=== PATIENT | female | born 1945 | race Caucasian/White ===

== ENCOUNTER → 2019-11-29 07:53 | Outpatient (BNVA) | payer MEDICARE, SELFPAY | PROVIDERS: Family Provider Nurse Practitioner; PCP Nurse Practitioner; Visit Provider Specialist | DX: F03.90 Unspecified dementia, unspecified severity, without behavioral disturbance, psychotic disturbance, mood disturbance, and anxiety (principal); Z87.891 Personal history of nicotine dependence | CPT/HCPCS: 96116; 99213 ==

== ENCOUNTER 2020-01-06 19:01 | Inpatient (IN) | payer MEDICARE, SELFPAY ==
[2020-01-06 19:02] VITALS: BP 115/55; PULSE 70; RESP 18; TEMP 36.9; O2SAT 96; BMI 20.1
--- NOTE | 2020-01-06 19:05 | XR_ITS ---
WS: [id number] CHEST XRAY TECHNIQUE: Portable chest. CLINICAL INFORMATION: cough COMPARISON: October 04, 2018 FINDINGS: Heart: Cardiomegaly. Cardiac pacer. Lungs: Moderate chronic emphysematous changes. Elevation right hemidiaphragm. Bones: Normal visualized bony structures. XR/XR chest 1V portable [id number] IMPRESSION: No acute chest findings
--- NOTE | 2020-01-06 19:05 | CTR_ITS ---
PROCEDURE INFORMATION: Exam: CT Head Without Contrast Exam date and time: 01/06/2020 8:46 PM Age: 74 years old Clinical indication: Altered mental status/memory loss; Confusion or disorientation; Additional info: Dalton/ams TECHNIQUE: Imaging protocol: Computed tomography of the head without contrast. Radiation optimization: All CT scans at this facility use at least one of these dose optimization techniques: automated exposure control; mA and/or kV adjustment per patient size (includes targeted exams where dose is matched to clinical indication); or iterative reconstruction.Total DLP: 766.21 mGy-cm COMPARISON: CT head wo con* [id number] 10/16/2018 1:46 PM FINDINGS: Brain: Medial left occipital lobe chronic infarction is present. Mild atrophy and mild white matter chronic microvascular changes are noted. No hemorrhage or CT evidence of acute infarction is seen. Ventricles: Normal. No ventriculomegaly. Bones/joints: Unremarkable. No acute fracture. Sinuses: Visualized sinuses are unremarkable. No fluid levels. Mastoid air cells: Visualized mastoid air cells are well aerated. Soft tissues: Unremarkable. CT/CT head wo con* [id number] IMPRESSION: No acute intracranial abnormality. Radiation Dose CTDIVOL = (mGy): DLP = 766.21 (mGy-cm)
--- NOTE | 2020-01-06 19:06 | CTR_ITS ---
PROCEDURE INFORMATION: Exam: CT Abdomen And Pelvis With Contrast Exam date and time: 01/06/2020 8:46 PM Age: 74 years old Clinical indication: Nausea and vomiting; Prior surgery; Surgery type: Gb, appy, gastric, pacemaker; Additional info: Abdominal pain TECHNIQUE: Imaging protocol: Computed tomography of the abdomen and pelvis with intravenous contrast. Radiation optimization: All CT scans at this facility use at least one of these dose optimization techniques: automated exposure control; mA and/or kV adjustment per patient size (includes targeted exams where dose is matched to clinical indication); or iterative reconstruction.Total DLP: 501.29 mGy-cm Contrast material: VISI 320; Contrast volume: 75 ml; Contrast route: IV; COMPARISON: CT abdomen pelvis w con* [id number] 10/04/2018 10:12 AM FINDINGS: Heart: The heart is mildly enlarged. Mediastinum: A small hiatal hernia is present. Liver: Normal. No mass. Gallbladder and bile ducts: The gallbladder has been removed. No biliary ductal dilatation. Pancreas: Normal. No ductal dilation. Spleen: Normal. No splenomegaly. Adrenals: Normal. No mass. Kidneys and ureters: Normal. No hydronephrosis. Stomach and bowel: Gastrojejunostomy changes are appreciated. Postoperative changes are also seen in the small bowel in the right lower quadrant. No intestinal obstruction. Mild sigmoid diverticulitis is appreciated. Appendix: The appendix is absent. Intraperitoneal space: Unremarkable. No free air. No significant fluid collection. Vasculature: Atherosclerotic calcific changes are seen in the abdominal aorta and iliac arteries. No aneurysm. Lymph nodes: Unremarkable. No enlarged lymph nodes. Bladder: Unremarkable as visualized. Reproductive: Unremarkable as visualized. Bones/joints: Unremarkable. No acute fracture. Soft tissues: Unremarkable. CT/CT abdomen pelvis w con* [id number] IMPRESSION: 1. Mild sigmoid diverticulitis. 2. Small hiatal hernia. 3. Mild cardiomegaly. 4. Atherosclerosis. Radiation Dose CTDIVOL = (mGy): DLP = 501.29 (mGy-cm)
[2020-01-06] MEDS: sodium chloride 0.9% 1,000 ML 100 ML IV (19:15)
--- NOTE | 2020-01-06 19:21 | W.ED.GENADLT ---
HPI - General Adult General: Chief complaint: General Medical Stated complaint: bilat leg numbness / tremors / n/v Time Seen by Provider: 01/06/20 19:02 History of Present Illness: HPI narrative: Jessica is a pleasant 74-year-old female who comes in with report of tremors, vomiting, abdominal pain, and arm and leg numbness. The patient has Alzheimer's dementia and is a poor historian. Most of her history is taken from EMS, her daughter and old charts. The patient was checked on by her daughter today at 5 PM she was found laying in bed. She had generalized tremors which her daughter states will happen when she gets scared or upset. She had been vomiting. She also complained of bilateral leg numbness. Here the patient complains of both leg and arm numbness bilaterally. There is been no reported fevers, urinary symptoms, chest pain, headache or other complaints. Review of Systems General: Reports: ROS unobtainable due to mental status (Pertinent positive review of systems is noted in HPI.) PFS ED PFSH: Medical History (Updated 01/07/20 @ 01:18 by Lor Rose MD) Atrial fibrillation Depression Diabetes mellitus Diastolic heart failure Fibromyalgia History of CVA (cerebrovascular accident) Hyperlipidemia Hypertension Hypothyroidism Neuropathy Sleep apnea unclear if cpap machine working Surgical History S/P appendectomy S/P cardiac pacemaker procedure S/P carpal tunnel release S/P cholecystectomy S/P gastric surgery S/P hernia repair S/P hysterectomy S/P knee replacement Family History Father Stroke Mother Diabetes Hypertension CAD (coronary artery disease) Social History Smoking and tobacco status: former smoker Quit status (tobacco): has quit using tobacco Year quit tobacco: 1986 Alcohol intake: never History of recent travel: No Physical Exam Const: COMMON NORMALS: no apparent distress, no limitations, healthy appearing and well nourished EXAM LIMITATIONS: no altered mental status GENERAL APPEARANCE: cooperative, comfortable, well kempt, well developed and anxious ORIENTATION/CONSCIOUSNESS: Yes awake, Yes oriented to person and Yes confused HENMT: COMMON NORMALS: normocephalic, head/scalp atraumatic, hearing grossly normal bilaterally, external ears normal, EAC's normal, external nose normal and moist oral mucous membranes HEAD & SCALP: normal to inspection, normocephalic and atraumatic FACE & SINUS: normal facial exam and face symmetric NOSE: external nose normal and nares normal EXTERNAL EAR: Yes external ears normal EXTERNAL AUDITORY CANAL: EAC's normal MOUTH: oral and palatal mucosa normal and tongue normal Eye: COMMON NORMALS: PERRL, EOMs intact bilaterally, conjunctivae normal and no scleral icterus GENERAL EYE: normal appearance of both eyes and normal light reflex CONJUNCTIVA: Yes conjunctivae normal SCLERA: sclerae normal CORNEA: Yes corneas normal PUPIL: Yes PERRL DIRECT OPHTHALMOSCOPY: Yes normal light reflex Neck/C-Spine: COMMON NORMALS: full ROM, no lymphadenopathy, supple, no meningeal signs and no JVD GENERAL: Yes normal visual inspection and Yes trachea midline CERVICAL SPINE: Yes cervical ROM normal Chest: COMMONS NORMALS: inspection of chest normal and palpation of chest normal Resp: COMMON NORMALS: normal respiratory effort, no retractions, no use of accessory muscles and clear to auscultation bilaterally EFFORT & INSPECTION: Yes able to speak in complete sentences AUSCULTATION: clear to auscultation bilaterally Cardio: COMMON NORMALS: no JVD, regular rate, regular rhythm, S1 normal heart sound, S2 normal heart sound, no gallops, no clicks, no murmurs and no rub JUGULAR VENOUS DISTENTION: no JVD RATE: regular rate RHYTHM: regular rhythm HEART SOUNDS: S1 normal and S2 normal GI: COMMON NORMALS: soft to palpation, no hepatosplenomegaly and no masses PALPATION: Yes soft and Yes no hepatosplenomegaly : COMMON NORMALS: Yes no CVA tenderness BLADDER/KIDNEY EXAM: Yes no CVA tenderness Back/Pelvis: COMMON NORMALS: no CVA tenderness, thoracic and lumbar spine normal to inspection, no thoracic nor lumbar tenderness and thoraco-lumbar ROM normal Extremity: COMMON NORMALS: normal to inspection, full ROM, normal capillary refill, no joint enlargement, no clubbing, cyanosis or edema and no calf tenderness Neuro: MOE COMA SCALE: document GCS findings [place] coma scale eye opening: Spontaneous [place] coma scale verbal response: Confused Moe coma scale motor response: Obey commands [place] coma scale total score: 14 COMMON NORMALS: CN's II-XII intact bilaterally, moves all extremities, no focal motor deficits and no sensory deficits noted SENSORIUM/ORIENTATION: Yes oriented to person MENINGEAL SIGNS: Yes no meningeal signs Psych: COMMON NORMALS: mental status grossly normal, thought process normal, cooperative, affect normal, speech normal and activity/motor behavior normal APPEARANCE: Yes well kempt SPEECH: Yes normal speech THOUGHT PROCESS: normal thought process Skin: COMMON NORMALS: no rashes or lesions noted, skin turgor normal, no jaundice, no petechiae and no mottling GENERAL SKIN EXAM: no rashes or lesions noted and turgor normal Course Vital Signs: Vital signs: Vital Signs Temperature 98.4 F 01/06/20 19:02 Pulse Rate 72 01/07/20 00:36 Respiratory Rate 19 H 01/07/20 00:36 Blood Pressure 104/52 01/07/20 00:36 Pulse Oximetry 100 01/07/20 00:36 MDM - General Adult MDM Narrative: Medical decision making narrative: The patient is feeling better at this time. I have reviewed the case in full with Dr. Tran and she is agreeable to admission for diverticulitis and early signs of sepsis although the patient is clinically improved at this time. Lab Data: Labs: Lab Results 01/06/20 01/06/20 01/06/20 Range/Units 19:22 19:22 19:22 WBC 12.2 H (4.0-10.0) 10^3/ uL RBC 4.03 L (4.1-5.3) 10^6/u L Hgb 11.8 (11.5-15.3) g/dL Hct 36.5 L (37.0-47.0) % MCV 90.6 (81-99) fL MCH 29.3 (28.0-34.0) pg MCHC 32.3 (30.0-36.0) g/dL RDW 11.9 L (12.1-15.1) % Plt Count 321 (130-400) 10^3/c mm MPV 11.0 H (7.4-10.4) fL Neut % (Auto) 83.3 % Lymph % (Auto) 10.8 % [place] % (Auto) 4.9 % Eos % (Auto) 0.2 % Baso % (Auto) 0.5 % Neut # (Auto) 10.1 H (1.8-7.7) 10^3/u L Lymph # (Auto) 1.3 (0.8-4.8) 10^3/u L [place] # (Auto) 0.6 (0.2-0.9) 10^3/u L Eos # (Auto) 0.0 (0.0-0.8) 10^3/u L Baso # (Auto) 0.1 (0.0-0.1) 10^3/u L Nucleated RBC % (a uto) 0 % Nucleated RBCs # 0.0 /100WBC PT 28.90 H (10.5-13.3) SECO NDS INR 2.61 H (0.8-1.2) Specimen Type Sample Site ABG pH (7.35-7.45) ABG pCO2 (35-45) mmHg ABG pO2 (80.0-100.0) mmH g ABG HCO3 (22-26) mmol/L ABG Base Excess (-2.0-2.0) mmol/ L Kye Test Hematocrit (37-47) % O2 Delivery Device FiO2 % Supervisor [employer] ID Sodium 133 L (136-145) mmol/L Potassium 4.5 (3.5-5.1) mmol/L Chloride 93 L (98-107) mmol/L Carbon Dioxide 24 (22-29) mmol/L Anion Gap 20.5 H (5-19) BUN 13 (8-23) mg/dL Creatinine 1.2 H (0.5-0.9) mg/dL Glucose 169 H (65-115) mg/dL Calculated Osmolal ity 276 L (285-295) mOsm/k g Lactic Acid (0.5-2.2) mmol/L Lactic Acid (Sepsi s) (0.5-2.2) mmol/L Calcium 10.0 (8.5-10.5) mg/dL Magnesium 1.9 (1.7-2.3) mg/dL Total Bilirubin 0.6 (0.15-1.2) mg/dL AST 25 (0-32) U/L ALT 13 (0-33) U/L Alkaline Phosphata se 119 H (35-105) IU/L Ammonia (11-51) umol/L Total Protein 6.6 (6.6-8.7) g/dL Albumin 3.7 (3.5-5.2) g/dL Globulin 2.9 (1.3-4.6) g/dL Lipase 30 (13-60) U/L TSH 0.72 (0.27-4.20) uIU/ mL Urine Color (Yellow) Urine Appearance (CLEAR) Urine pH (5-7) Ur Specific Gravit y (1.005-1.030) Urine Protein (Negative) Urine Glucose (UA) (Normal) Urine Ketones (Negative) Urine Blood (Negative) Urine Nitrate (Negative) Urine Bilirubin (NEGATIVE) Prot Sulfosalicyli c Acd (Negative) Urine Urobilinogen (Negative) mg/dL Ur Leukocyte Ak[place] ase (Negative) Urine RBC (0-2) /hpf Urine WBC (0-5) /hpf Ur Squamous Epith Cells (0-5) Urine Bacteria (NONE) Hyaline Casts Digoxin 1.7 H (0.6-1.2) ng/mL Urine Opiates Scre en (Negative) ng/mL Ur Barbiturates Sc reen (Negative) ng/mL Ur Phencyclidine S crn (Negative) ng/mL Ur Amphetamines Sc reen (Negative) ng/mL U Benzodiazepines Scrn (Negative) ng/mL Urine Cocaine Scre en (Negative) ng/mL U Marijuana (THC) Screen (Negative) ng/mL Ethyl Alcohol < 10 (0-10) mg/dL Influenza Type A A g (Negative) Influenza Type B A g (Negative) 01/06/20 01/06/20 01/06/20 Range/Units 19:32 19:32 19:35 WBC (4.0-10.0) 10^3/ uL RBC (4.1-5.3) 10^6/u L Hgb (11.5-15.3) g/dL Hct (37.0-47.0) % MCV (81-99) fL MCH (28.0-34.0) pg MCHC (30.0-36.0) g/dL RDW (12.1-15.1) % Plt Count (130-400) 10^3/c mm MPV (7.4-10.4) fL Neut % (Auto) % Lymph % (Auto) % [place] % (Auto) % Eos % (Auto) % Baso % (Auto) % Neut # (Auto) (1.8-7.7) 10^3/u L Lymph # (Auto) (0.8-4.8) 10^3/u L [place] # (Auto) (0.2-0.9) 10^3/u L Eos # (Auto) (0.0-0.8) 10^3/u L Baso # (Auto) (0.0-0.1) 10^3/u L Nucleated RBC % (a uto) % Nucleated RBCs # /100WBC PT (10.5-13.3) SECO NDS INR (0.8-1.2) Specimen Type Arterial Sample Site Radial, left ABG pH 7.46 H (7.35-7.45) ABG pCO2 40.8 (35-45) mmHg ABG pO2 84.1 (80.0-100.0) mmH g ABG HCO3 28.6 H (22-26) mmol/L ABG Base Excess 4.3 H (-2.0-2.0) mmol/ L Kye Test Pos Hematocrit 37.0 (37-47) % O2 Delivery Device None FiO2 21.0 % Supervisor [employer] ID [email or web address] Sodium (136-145) mmol/L Potassium (3.5-5.1) mmol/L Chloride (98-107) mmol/L Carbon Dioxide (22-29) mmol/L Anion Gap (5-19) BUN (8-23) mg/dL Creatinine (0.5-0.9) mg/dL Glucose (65-115) mg/dL Calculated Osmolal ity (285-295) mOsm/k g Lactic Acid 3.2 H (0.5-2.2) mmol/L Lactic Acid (Sepsi s) (0.5-2.2) mmol/L Calcium (8.5-10.5) mg/dL Magnesium (1.7-2.3) mg/dL Total Bilirubin (0.15-1.2) mg/dL AST (0-32) U/L ALT (0-33) U/L Alkaline Phosphata se (35-105) IU/L Ammonia 19 (11-51) umol/L Total Protein (6.6-8.7) g/dL Albumin (3.5-5.2) g/dL Globulin (1.3-4.6) g/dL Lipase (13-60) U/L TSH (0.27-4.20) uIU/ mL Urine Color (Yellow) Urine Appearance (CLEAR) Urine pH (5-7) Ur Specific Gravit y (1.005-1.030) Urine Protein (Negative) Urine Glucose (UA) (Normal) Urine Ketones (Negative) Urine Blood (Negative) Urine Nitrate (Negative) Urine Bilirubin (NEGATIVE) Prot Sulfosalicyli c Acd (Negative) Urine Urobilinogen (Negative) mg/dL Ur Leukocyte Akua ase (Negative) Urine RBC (0-2) /hpf Urine WBC (0-5) /hpf Ur Squamous Epith Cells (0-5) Urine Bacteria (NONE) Hyaline Casts Digoxin (0.6-1.2) ng/mL Urine Opiates Scre en (Negative) ng/mL Ur Barbiturates Sc reen (Negative) ng/mL Ur Phencyclidine S crn (Negative) ng/mL Ur Amphetamines Sc reen (Negative) ng/mL U Benzodiazepines Scrn (Negative) ng/mL Urine Cocaine Scre en (Negative) ng/mL U Marijuana (THC) Screen (Negative) ng/mL Ethyl Alcohol (0-10) mg/dL Influenza Type A A g (Negative) Influenza Type B A g (Negative) 01/06/20 01/06/20 01/06/20 Range/Units 20:20 20:20 20:20 WBC (4.0-10.0) 10^3/ uL RBC (4.1-5.3) 10^6/u L Hgb (11.5-15.3) g/dL Hct (37.0-47.0) % MCV (81-99) fL MCH (28.0-34.0) pg MCHC (30.0-36.0) g/dL RDW (12.1-15.1) % Plt Count (130-400) 10^3/c mm MPV (7.4-10.4) fL Neut % (Auto) % Lymph % (Auto) % [place] % (Auto) % Eos % (Auto) % Baso % (Auto) % Neut # (Auto) (1.8-7.7) 10^3/u L Lymph # (Auto) (0.8-4.8) 10^3/u L [place] # (Auto) (0.2-0.9) 10^3/u L Eos # (Auto) (0.0-0.8) 10^3/u L Baso # (Auto) (0.0-0.1) 10^3/u L Nucleated RBC % (a uto) % Nucleated RBCs # /100WBC PT (10.5-13.3) SECO NDS INR (0.8-1.2) Specimen Type Sample Site ABG pH (7.35-7.45) ABG pCO2 (35-45) mmHg ABG pO2 (80.0-100.0) mmH g ABG HCO3 (22-26) mmol/L ABG Base Excess (-2.0-2.0) mmol/ L Kye Test Hematocrit (37-47) % O2 Delivery Device FiO2 % Supervisor [employer] ID Sodium (136-145) mmol/L Potassium (3.5-5.1) mmol/L Chloride (98-107) mmol/L Carbon Dioxide (22-29) mmol/L Anion Gap (5-19) BUN (8-23) mg/dL Creatinine (0.5-0.9) mg/dL Glucose (65-115) mg/dL Calculated Osmolal ity (285-295) mOsm/k g Lactic Acid (0.5-2.2) mmol/L Lactic Acid (Sepsi s) (0.5-2.2) mmol/L Calcium (8.5-10.5) mg/dL Magnesium (1.7-2.3) mg/dL Total Bilirubin (0.15-1.2) mg/dL AST (0-32) U/L ALT (0-33) U/L Alkaline Phosphata se (35-105) IU/L Ammonia (11-51) umol/L Total Protein (6.6-8.7) g/dL Albumin (3.5-5.2) g/dL Globulin (1.3-4.6) g/dL Lipase (13-60) U/L TSH (0.27-4.20) uIU/ mL Urine Color Yellow (Yellow) Urine Appearance Clear (CLEAR) Urine pH 8 H (5-7) Ur Specific Gravit y 1.020 (1.005-1.030) Urine Protein Neg (Negative) Urine Glucose (UA) Norm (Normal) Urine Ketones Negative (Negative) Urine Blood Neg (Negative) Urine Nitrate Negative (Negative) Urine Bilirubin Neg (NEGATIVE) Prot Sulfosalicyli c Acd Negative (Negative) Urine Urobilinogen Norm (Negative) mg/dL Ur Leukocyte [place] ase Negative (Negative) Urine RBC 0-4 H (0-2) /hpf Urine WBC 5-10 H (0-5) /hpf Ur Squamous Epith Cells 0-4 H (0-5) Urine Bacteria 1+ H (NONE) Hyaline Casts 0-4 H Digoxin (0.6-1.2) ng/mL Urine Opiates Scre en Negative (Negative) ng/mL Ur Barbiturates Sc reen Negative (Negative) ng/mL Ur Phencyclidine S crn Negative (Negative) ng/mL Ur Amphetamines Sc reen Negative (Negative) ng/mL U Benzodiazepines Scrn Negative (Negative) ng/mL Urine Cocaine Scre en Negative (Negative) ng/mL U Marijuana (THC) Screen Negative (Negative) ng/mL Ethyl Alcohol (0-10) mg/dL Influenza Type A A g Negative (Negative) Influenza Type B A g Negative (Negative) 01/06/20 Range/Units 22:45 WBC (4.0-10.0) 10^3/ uL RBC (4.1-5.3) 10^6/u L Hgb (11.5-15.3) g/dL Hct (37.0-47.0) % MCV (81-99) fL MCH (28.0-34.0) pg MCHC (30.0-36.0) g/dL RDW (12.1-15.1) % Plt Count (130-400) 10^3/c mm MPV (7.4-10.4) fL Neut % (Auto) % Lymph % (Auto) % [place] % (Auto) % Eos % (Auto) % Baso % (Auto) % Neut # (Auto) (1.8-7.7) 10^3/u L Lymph # (Auto) (0.8-4.8) 10^3/u L [place] # (Auto) (0.2-0.9) 10^3/u L Eos # (Auto) (0.0-0.8) 10^3/u L Baso # (Auto) (0.0-0.1) 10^3/u L Nucleated RBC % (a uto) % Nucleated RBCs # /100WBC PT (10.5-13.3) SECO NDS INR (0.8-1.2) Specimen Type Sample Site ABG pH (7.35-7.45) ABG pCO2 (35-45) mmHg ABG pO2 (80.0-100.0) mmH g ABG HCO3 (22-26) mmol/L ABG Base Excess (-2.0-2.0) mmol/ L Kye Test Hematocrit (37-47) % O2 Delivery Device FiO2 % Supervisor [employer] ID Sodium (136-145) mmol/L Potassium (3.5-5.1) mmol/L Chloride (98-107) mmol/L Carbon Dioxide (22-29) mmol/L Anion Gap (5-19) BUN (8-23) mg/dL Creatinine (0.5-0.9) mg/dL Glucose (65-115) mg/dL Calculated Osmolal ity (285-295) mOsm/k g Lactic Acid (0.5-2.2) mmol/L Lactic Acid (Sepsi s) 1.5 (0.5-2.2) mmol/L Calcium (8.5-10.5) mg/dL Magnesium (1.7-2.3) mg/dL Total Bilirubin (0.15-1.2) mg/dL AST (0-32) U/L ALT (0-33) U/L Alkaline Phosphata se (35-105) IU/L Ammonia (11-51) umol/L Total Protein (6.6-8.7) g/dL Albumin (3.5-5.2) g/dL Globulin (1.3-4.6) g/dL Lipase (13-60) U/L TSH (0.27-4.20) uIU/ mL Urine Color (Yellow) Urine Appearance (CLEAR) Urine pH (5-7) Ur Specific Gravit y (1.005-1.030) Urine Protein (Negative) Urine Glucose (UA) (Normal) Urine Ketones (Negative) Urine Blood (Negative) Urine Nitrate (Negative) Urine Bilirubin (NEGATIVE) Prot Sulfosalicyli c Acd (Negative) Urine Urobilinogen (Negative) mg/dL Ur Leukocyte Ak[place] ase (Negative) Urine RBC (0-2) /hpf Urine WBC (0-5) /hpf Ur Squamous Epith Cells (0-5) Urine Bacteria (NONE) Hyaline Casts Digoxin (0.6-1.2) ng/mL Urine Opiates Scre en (Negative) ng/mL Ur Barbiturates Sc reen (Negative) ng/mL Ur Phencyclidine S crn (Negative) ng/mL Ur Amphetamines Sc reen (Negative) ng/mL U Benzodiazepines Scrn (Negative) ng/mL Urine Cocaine Scre en (Negative) ng/mL U Marijuana (THC) Screen (Negative) ng/mL Ethyl Alcohol (0-10) mg/dL Influenza Type A A g (Negative) Influenza Type B A g (Negative) Imaging Data^: CXR: My impression: No acute cardiopulmonary disease. CT Head: Radiologist's impression: [place] [address] CT Scan Report Signed Patient: Jessica Calvert Unit #: [id number] : 1945 Age/Sex: 74 / F ADM Date: 01/06/20 Loc: ER Room/Bed: Attending Dr: Ordering Provider/Ordering MD: Jessica Gunn DO Date of Service: 01/06/20 Procedure(s): CT head wo con* [id number] Accession Number(s): [id number] Report Number: [id number] PROCEDURE INFORMATION: Exam: CT Head Without Contrast Exam date and time: 01/06/2020 8:46 PM Age: 74 years old Clinical indication: Altered mental status/memory loss; Confusion or disorientation; Additional info: Dalton/ams TECHNIQUE: Imaging protocol: Computed tomography of the head without contrast. Radiation optimization: All CT scans at this facility use at least one of these dose optimization techniques: automated exposure control; mA and/or kV adjustment per patient size (includes targeted exams where dose is matched to clinical indication); or iterative reconstruction.Total DLP: 766.21 mGy-cm COMPARISON: CT head wo con* [id number] 10/16/2018 1:46 PM FINDINGS: Brain: Medial left occipital lobe chronic infarction is present. Mild atrophy and mild white matter chronic microvascular changes are noted. No hemorrhage or CT evidence of acute infarction is seen. Ventricles: Normal. No ventriculomegaly. Bones/joints: Unremarkable. No acute fracture. Sinuses: Visualized sinuses are unremarkable. No fluid levels. Mastoid air cells: Visualized mastoid air cells are well aerated. Soft tissues: Unremarkable. CT/CT head wo con* [id number] IMPRESSION: No acute intracranial abnormality. Radiation Dose CTDIVOL = (mGy): DLP = 766.21 (mGy-cm) Dictated By: Alfredo Joseph MD Signed By: Alfredo Joseph MD Signed Date/Time: 01/06/202112 DD/ 12 CT Abd/Pel: Radiologist's impression: [place] [address] CT Scan Report Signed Patient: Jessica Calvert Unit #: [id number] : 1945 Age/Sex: 74 / F ADM Date: 01/06/20 Loc: ER Room/Bed: Attending Dr: Ordering Provider/Ordering MD: Jessica Gunn DO Date of Service: 01/06/20 Procedure(s): CT abdomen pelvis w con* [id number] Accession Number(s): [id number] Report Number: [id number] PROCEDURE INFORMATION: Exam: CT Abdomen And Pelvis With Contrast Exam date and time: 01/06/2020 8:46 PM Age: 74 years old Clinical indication: Nausea and vomiting; Prior surgery; Surgery type: Gb, appy, gastric, pacemaker; Additional info: Abdominal pain TECHNIQUE: Imaging protocol: Computed tomography of the abdomen and pelvis with intravenous contrast. Radiation optimization: All CT scans at this facility use at least one of these dose optimization techniques: automated exposure control; mA and/or kV adjustment per patient size (includes targeted exams where dose is matched to clinical indication); or iterative reconstruction.Total DLP: 501.29 mGy-cm Contrast material: VISI 320; Contrast volume: 75 ml; Contrast route: IV; COMPARISON: CT abdomen pelvis w con* [id number] 10/04/2018 10:12 AM FINDINGS: Heart: The heart is mildly enlarged. Mediastinum: A small hiatal hernia is present. Liver: Normal. No mass. Gallbladder and bile ducts: The gallbladder has been removed. No biliary ductal dilatation. Pancreas: Normal. No ductal dilation. Spleen: Normal. No splenomegaly. Adrenals: Normal. No mass. Kidneys and ureters: Normal. No hydronephrosis. Stomach and bowel: Gastrojejunostomy changes are appreciated. Postoperative changes are also seen in the small bowel in the right lower quadrant. No intestinal obstruction. Mild sigmoid diverticulitis is appreciated. Appendix: The appendix is absent. Intraperitoneal space: Unremarkable. No free air. No significant fluid collection. Vasculature: Atherosclerotic calcific changes are seen in the abdominal aorta and iliac arteries. No aneurysm. Lymph nodes: Unremarkable. No enlarged lymph nodes. Bladder: Unremarkable as visualized. Reproductive: Unremarkable as visualized. Bones/joints: Unremarkable. No acute fracture. Soft tissues: Unremarkable. CT/CT abdomen pelvis w con* [id number] IMPRESSION: 1. Mild sigmoid diverticulitis. 2. Small hiatal hernia. 3. Mild cardiomegaly. 4. Atherosclerosis. Radiation Dose CTDIVOL = (mGy): DLP = 501.29 (mGy-cm) Dictated By: Alfredo Joseph MD Signed By: Alfredo Joseph MD Signed Date/Time: 01/06/202126 DD/ 25 Discharge Plan Discharge Patient Disposition: Admitted As Inpatient Admit Provider: Lor Rose Clinical Impression: Diverticulitis Condition: Stable Referrals: Mariajose Brice APN [Primary Care Provider] - Discharge Date/Time: 01/07/20 00:50 Coding Level of Care Code ED Ecg Technician for g Fwd Exam Comprehensive
[2020-01-06 19:40] LABS: Basophils # 0.1 10^3/uL (0.0-0.1); Basophils % 0.5 %; Eosinophils % 0.2 %; Hematocrit 36.5 % (37.0-47.0); Hemoglobin 11.8 g/dL (11.5-15.3); Lymphocytes # 1.3 10^3/uL (0.8-4.8); Lymphocytes % 10.8 %; Mean Corpuscular HGB Conc 32.3 g/dL (30.0-36.0); Mean Corpuscular Hemoglobin 29.3 pg (28.0-34.0); Mean Corpuscular Volume 90.6 fL (81-99); Monocytes # 0.6 10^3/uL (0.2-0.9); Monocytes % 4.9 %; Neutrophils # 10.1 10^3/uL (1.8-7.7); Neutrophils % 83.3 %; Nucleated Red Blood Cells % 0 %; Platelet Count 321 10^3/cmm (130-400); Red Blood Count 4.03 10^6/uL (4.1-5.3); Red Cell Distribution Width 11.9 % (12.1-15.1); White Blood Count 12.2 10^3/uL (4.0-10.0)
[2020-01-06 19:46] LABS: ABG PCO2 40.8 mmHg (35-45); ABG PH Result 7.46 (7.35-7.45); Base Excess ABG 4.3 mmol/L (-2.0-2.0); Blood Gas Allen Test Pos; Blood Gas Sample Site Radial, left; Blood Gas Sample Type Arterial; HCO3 ABG 28.6 mmol/L (22-26); PO2 ABG 84.1 mmHg (80.0-100.0)
[2020-01-06 19:48] LABS: INR 2.61 (0.8-1.2)
[2020-01-06 19:53] LABS: Lactic Sepsis W/Reflex 3.2 mmol/L (0.5-2.2)
[2020-01-06 20:05] LABS: Ammonia 19 umol/L (11-51)
[2020-01-06 20:07] LABS: Alanine Aminotransferase 13 U/L (0-33); Albumin Level 3.7 g/dL (3.5-5.2); Alcohol Level < 10 mg/dL (0-10); Alkaline Phosphatase 119 IU/L (35-105); Anion Gap 20.5 (5-19); Aspartate Amino Transferase 25 U/L (0-32); Blood Urea Nitrogen 13 mg/dL (8-23); Carbon Dioxide 24 mmol/L (22-29); Chloride 93 mmol/L (98-107); Digoxin 1.7 ng/mL (0.6-1.2); Globulin 2.9 g/dL (1.3-4.6); Glucose 169 mg/dL (65-115); Lipase 30 U/L (13-60); Magnesium 1.9 mg/dL (1.7-2.3); Osmolality Calculated 276 mOsm/kg (285-295); Potassium 4.5 mmol/L (3.5-5.1); Sodium 133 mmol/L (136-145); Thyroid Stimulating Hormone 0.72 uIU/mL (0.27-4.20); Total Bilirubin 0.6 mg/dL (0.15-1.2); Total Protein 6.6 g/dL (6.6-8.7)
[2020-01-06 20:11] VITALS: BP 129/61; PULSE 76; RESP 15; O2SAT 97
[2020-01-06 20:45] LABS: Amphetamines Screen Urine Negative (Negative); Barbiturates Screen Urine Negative (Negative); Benzodiazepines Screen Urine Negative (Negative); Cocaine Screen Urine Negative (Negative); Opiate Screen Urine Negative (Negative); PCP Screen Urine Negative (Negative); THC Screen Urine Negative (Negative)
[2020-01-06 20:47] LABS: Bilirubin Urine Neg (NEGATIVE); Blood Urine Neg (Negative); Glucose Urine UA Norm (Normal); Ketones Urine Negative (Negative); Nitrate Urine Negative (Negative); Protein Urine Neg (Negative); Urine Appearance Clear (CLEAR); Urine Color Yellow (Yellow); pH Urine 8 (5-7)
[2020-01-06 20:48] LABS: Bacteria Urine 1+; Hyaline Casts Urine 0-4; Leukocyte Esterase Urine Negative (Negative); RBC Urine 0-4 /hpf (0-2); Squamous Epithelial Cell Urine 0-4 (0-5); Sulfosalicylic Acid Urine Negative (Negative); Urobilinogen Urine Norm (Negative)
[2020-01-06] MEDS: sodium chloride 0.9% 1,496.85 ML 1496.9 ML IV (20:50)
[2020-01-06 20:54] LABS: Influenza A by IFA Negative (Negative); Influenza B by IFA Negative (Negative)
[2020-01-06] MEDS: iodixanol 320 mg/mL 100mL Btl IV (21:07)
[2020-01-06 21:20] VITALS: BP 124/57; PULSE 70; RESP 17; O2SAT 98
[2020-01-06 21:23] LABS: Reflex Lactate Order REFLEX LACTIC ORDERD
[2020-01-06] MEDS: piperacillin-tazobactam 3.375 GM in sodium chloride 0.9% (plus) 50 ML IV (22:33)
[2020-01-06 22:46] VITALS: BP 107/53; PULSE 70; RESP 16; O2SAT 97
[2020-01-06 23:06] LABS: Lactic Acid level (Lactate) 1.5 mmol/L (0.5-2.2)
[2020-01-06 23:17] VITALS: BP 107/49; PULSE 75; RESP 17; O2SAT 95
--- NOTE | 2020-01-06 23:32 | PM.HP ---
Providers/Chief Complaint Primary Care Provider: Mariajose Brice APN Chief Complaint: bilat leg numbness / tremors / n/v History of Present Illness Jessica Calvert is a 74 year old female who presented to the emergency room after her daughter came home from work and found her in bed not acting like herself. Patient's daughter goes to work during the day and comes back in the evening. Several times this week Mrs. Castellon has not taken her morning medicines as she usually does. There have been some patient has been sleeping much more the last couple of weeks. No report of any fevers. No specific symptoms such as complaints of chest pain, cough or difficulty breathing, vomiting or diarrhea. Patient will still take care of some of her own activities of daily living. She still drives at times though had an episode recently in which she could not quite figure out how to get back home. She was diagnosed recently with dementia. She has been on Exelon for some time but the dose was recently increased. That increased dose however was not started until a couple of days ago. The gradual changes that the daughter has been seeing have been occurring for longer than that. Patient states I do not know to everything at the moment. She did admit to being cold. Work-up in the emergency room revealed an elevated lactic acid at 3.2. Work-up ensued to identify a source of this and she was found to have some mild diverticulitis on CT imaging. Also identified was a digoxin level of 1.7. She is being admitted for further evaluation and treatment. Past medical history and home medications were reviewed with the daughter. Review of Systems General: Reports: ROS unobtainable due to mental status Medications/Allergies Home Medications Medication Instructions Recorded Confirmed Last Taken Type aspirin 81 mg tablet,delayed 81 mg PO DAILY 10/25/19 01/07/20 Unknown History release digoxin 125 mcg (0.125 mg) tablet 125 mcg PO DAILY 10/25/19 01/07/20 Unknown History diltiazem HCl 300 mg 300 mg PO DAILY 10/25/19 01/07/20 Unknown History capsule,extended release 24 hr levothyroxine 50 mcg capsule 50 mcg PO DAILY 10/25/19 01/07/20 Unknown History lisinopril 5 mg tablet 5 mg PO DAILY 10/25/19 01/07/20 Unknown History magnesium oxide 400 mg PO DAILY 10/25/19 01/07/20 Unknown History metformin 500 mg tablet 500 mg PO BID 10/25/19 01/07/20 Unknown History multivitamin 1 tab PO DAILY 10/25/19 01/07/20 Unknown History omega-3 fatty acids 1,000 mg 1,000 mg PO DAILY 10/25/19 01/07/20 Unknown History capsule pravastatin 40 mg tablet 40 mg PO DAILY 10/25/19 01/07/20 Unknown History tramadol 50 mg tablet 50 mg PO DAILY PRN 10/25/19 01/07/20 Unknown History warfarin 5 mg tablet 5 mg PO DIRECTED tab 10/25/19 01/07/20 Unknown History rivastigmine tartrate 4.5 mg 4.5 mg PO BID #60 cap 11/29/19 01/07/20 Unknown Rx capsule Allergies Allergy/AdvReac Type Severity Reaction Status Date / Time codeine Allergy Unknown Unknown Verified 11/29/19 08:18 PFSH Acute PFSH: Medical History Atrial fibrillation Depression Diabetes mellitus Diastolic heart failure Fibromyalgia History of CVA (cerebrovascular accident) Hyperlipidemia Hypertension Hypothyroidism Neuropathy Sleep apnea unclear if cpap machine working Surgical History S/P appendectomy S/P cardiac pacemaker procedure S/P carpal tunnel release S/P cholecystectomy S/P gastric surgery S/P hernia repair S/P hysterectomy S/P knee replacement Family History Father Stroke Mother Diabetes Hypertension CAD (coronary artery disease) Social History Smoking and tobacco status: former smoker Quit status (tobacco): has quit using tobacco Year quit tobacco: 1986 Alcohol intake: never History of recent travel: No Vitals/I&O/Wt Last Vital Signs Temp 98.4 F 01/06/20 19:02 Pulse 75 01/06/20 23:17 Resp 17 01/06/20 23:17 BP 107/49 01/06/20 23:17 Pulse Ox 95 01/06/20 23:17 01/06/20 01/06/20 01/07/20 14:59 22:59 06:59 Intake Total 1496.85 / 1496.85 Balance 1496.85 / 1496.85 Weight last 48 hrs Weight 49.895 kg Physical Exam Const: COMMON NORMALS: alert ORIENTATION/CONSCIOUSNESS: not oriented to person, not oriented to place and not oriented to time HENMT: COMMON NORMALS: normocephalic and head/scalp atraumatic Eye: COMMON NORMALS: PERRL and EOMs intact bilaterally Neck/C-Spine: COMMON NORMALS: supple Resp: COMMON NORMALS: normal respiratory effort, no use of accessory muscles and clear to auscultation bilaterally Cardio: COMMON NORMALS: no murmurs RATE: regular rate GI: COMMON NORMALS: soft to palpation and non-tender AUSCULTATION: Yes normoactive bowel sounds Extremity: COMMON NORMALS: no clubbing, cyanosis or edema and no calf tenderness Neuro: COMMON NORMALS: moves all extremities Psych: COMMON NORMALS: cooperative Skin: NARRATIVE SKIN EXAM: healing sore right shearer Data : 01/06/20 19:22 01/06/20 19:22 Micro: Microbiology 01/06/20 19:32 Blood Culture - Preliminary Blood SPECIMEN COLLECTED 01/06/20 19:22 Blood Culture - Preliminary Blood SPECIMEN COLLECTED A&P Assessment and plan (1) Altered mental status: Actually think this may be more related to digoxin toxicity. Certainly could be a component of acute infection contributing and she does have evidence of mild diverticulitis with some lactic acidosis initially identified. Status: Acute Qualifiers: Altered mental status type: delirium Qualified Code(s): R41.0 - Disorientation, unspecified (2) Digoxin toxicity: On for atrial fibrillation. Not intentional. Status: Acute Qualifiers: Encounter type: initial encounter Injury intent: accidental or unintentional Qualified Code(s): T46.0X1A - Poisoning by cardiac-stimulant glycosides and drugs of similar action, accidental (unintentional), initial encounter (3) Diverticulitis: Has had diverticulitis previously. Had initial lactic acid at 3.3 low repeat was down to 1.5. Status: Acute (4) Chronic anticoagulation: Chronically on Coumadin. Status: Acute (5) Atrial fibrillation: Currently rate controlled Status: Acute Qualifiers: Atrial fibrillation type: unspecified chronic Qualified Code(s): I48.20 - Chronic atrial fibrillation, unspecified (6) Diabetes mellitus: Status: Acute Qualifiers: Diabetes mellitus type: type 2 Diabetes mellitus shelter insulin use: without press tender long goods use Diabetes mellitus complication status: without complication Qualified Code(s): E11.9 - Type 2 diabetes mellitus without complications (7) Diastolic heart failure: Not currently acute Status: Acute Qualifiers: Heart failure chronicity: chronic Qualified Code(s): I50.32 - Chronic diastolic (congestive) heart failure (8) Hypertension: Currently controlled Status: Acute Qualifiers: Hypertension type: essential hypertension Qualified Code(s): I10 - Essential (primary) hypertension (9) Alzheimer disease: Recent diagnosis though has been on medication for a while. Exelon dose was increased to 4.5 twice daily a couple of days ago Status: Acute Qualifiers: Alzheimer's disease onset: late-onset Dementia behavioral disturbance: without behavioral disturbance Qualified Code(s): G30.1 - Alzheimer's disease with late onset; F02.80 - Dementia in other diseases classified elsewhere without behavioral disturbance Additional A&P Information Inpatient admission Continue antibiotics We will need to decrease dose of Coumadin and monitor INR IV fluids Hold digoxin Repeat digoxin level in the morning Telemetry monitoring Continue diltiazem dose along with lisinopril, monitoring blood pressures Low-dose IV fluids for now Clear liquid diet Hold metformin secondary to contrast administration Sliding scale insulin if needed Continue home levothyroxine SCDs for VT prophylaxis although therapeutic INR also covers Supportive care otherwise Anticipate disposition back home with daughter Allow natural as per discussion with patient's daughter Plans were discussed with patient's daughter Xiomy Goldstein [phone] and she was given an opportunity to ask questions Attestations Medical Necessity Statement*: Anticipated stay greater than 2 midnights in this patient with evidence of diverticulitis as well as being found to have some digoxin toxicity. 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 Altered mental status R41.0 Altered mental status type: delirium Digoxin toxicity T46.0X1A Encounter type: initial encounter Injury intent: accidental or unintentional Diverticulitis K57.92 Chronic anticoagulation Z79.01 Atrial fibrillation I48.20 Atrial fibrillation type: unspecified chronic Diabetes mellitus E11.9 Diabetes mellitus type: type 2 Diabetes mellitus press tender long goods insulin use: without press tender long goods use Diabetes mellitus complication status: without complication Diastolic heart failure I50.32 Heart failure chronicity: chronic Hypertension I10 Hypertension type: essential hypertension Alzheimer disease G30.1; F02.80 Alzheimer's disease onset: late-onset Dementia behavioral disturbance: without behavioral disturbance
[2020-01-06 23:59] VITALS: BP 111/52; PULSE 74; RESP 19; O2SAT 96
[2020-01-07] VITALS (7 sets, daily range): BP systolic 104–164; BP diastolic 52–69; PULSE 70–78; RESP 18–22; TEMP 36.6–37.2; O2SAT 95–100
[2020-01-07] MEDS: sodium chloride 0.9% 1,000 ML 100 ML IV ×3 (01:17→23:20)
[2020-01-07 05:38] LABS: Basophils # 0.1 10^3/uL (0.0-0.1); Basophils % 0.5 %; Eosinophils # 0.1 10^3/uL (0.0-0.8); Eosinophils % 0.6 %; Hematocrit 30.4 % (37.0-47.0); Hemoglobin 9.8 g/dL (11.5-15.3); Lymphocytes # 3.2 10^3/uL (0.8-4.8); Lymphocytes % 29.5 %; Mean Corpuscular HGB Conc 32.2 g/dL (30.0-36.0); Mean Corpuscular Hemoglobin 29.4 pg (28.0-34.0); Mean Corpuscular Volume 91.3 fL (81-99); Mean Platelet Volume 10.7 fL (7.4-10.4); Monocytes # 0.9 10^3/uL (0.2-0.9); Monocytes % 8.8 %; Neutrophils # 6.5 10^3/uL (1.8-7.7); Neutrophils % 60.4 %; Nucleated Red Blood Cells % 0 %; Platelet Count 269 10^3/cmm (130-400); Red Blood Count 3.33 10^6/uL (4.1-5.3); Red Cell Distribution Width 12.1 % (12.1-15.1); White Blood Count 10.7 10^3/uL (4.0-10.0)
[2020-01-07 06:06] LABS: Alanine Aminotransferase 10 U/L (0-33); Albumin Level 3.1 g/dL (3.5-5.2); Alkaline Phosphatase 93 IU/L (35-105); Anion Gap 12.3 (5-19); Aspartate Amino Transferase 20 U/L (0-32); Blood Urea Nitrogen 11 mg/dL (8-23); Calcium 8.7 mg/dL (8.5-10.5); Carbon Dioxide 28 mmol/L (22-29); Chloride 104 mmol/L (98-107); Globulin 2.3 g/dL (1.3-4.6); Glucose 82 mg/dL (65-115); Magnesium 1.9 mg/dL (1.7-2.3); Osmolality Calculated 285 mOsm/kg (285-295); Potassium 4.3 mmol/L (3.5-5.1); Sodium 140 mmol/L (136-145); Total Bilirubin 0.5 mg/dL (0.15-1.2); Total Protein 5.4 g/dL (6.6-8.7)
[2020-01-07 06:07] LABS: Digoxin 1.7 ng/mL (0.6-1.2)
[2020-01-07] MEDS: metroNIDAZOLE IV 500 MG/100 ML PREMIX 100 MG IV ×3 (09:33→23:20)
[2020-01-07] MEDS: levothyroxine 50 mcg Tablet PO (09:34)
[2020-01-07] MEDS: dilTIAZem ER (24HR) 300 mg Capsule PO (09:34)
[2020-01-07] MEDS: magnesium oxide 400 mg tablet PO (09:34)
[2020-01-07] MEDS: aspirin 81 mg EC Tablet PO (09:34)
[2020-01-07] MEDS: atorvastatin 40 mg Tablet 20 MG PO (09:34)
[2020-01-07] MEDS: lisinopril 5 mg Tablet PO (09:35)
[2020-01-07] MEDS: docusate sodium 100 mg Capsule PO ×2 (09:35→17:54)
[2020-01-07 10:47] LABS: Glucose Point of Care 134 mg/dL (70-110)
[2020-01-07] MEDS: levofloxacin-dextrose 5 % 500 MG/100 ML PREMIX 100 MG IV (11:03)
--- NOTE | 2020-01-07 11:15 | PC.CHAP ---
Pastoral Care Encounter/Spiritual Assessment Type of Contact [] Declined supervisor pleating visit [] Patient/Family/Request visit [] Outpatient visit [] Follow-up visit [] Physician referral [] Code/Alert [x] Routine visit [] Staff referral [] Actively dying [x] Patient sleeping [] Family support [] [] Out of room [] Palliative care [] [x] Receiving care in room [] Pre-surgical visit [] Trauma [] Long length of stay [] ICU visit [] Other: Relational/Emotional Strength [] Patient feels connected with others/family/visitors/staff [] Distress [] Loneliness/isolation [] Abandonment Spirituality of Patient [] Person of Emma [] Attends Anabaptism of their Emma [] Believes in Prayer [] Reads Bible or Church materials [] There are Spiritual issues to be addressed Status Controller Interventions [x] Prayer [] Active listening [] Non-anxious presence [] Spiritual/emotional support [] Crisis/trauma care [] Spiritual counseling [] Bereavement support [] Provided bereavement packet [] Provided Bible/devotional materials [] Provided toy/stuffed animal, coloring book to patient or family member [] Provided Communion [] Anointing/[place] [] Salvation [x] Completed spiritual assessment [] Other: Impact on Illness or Injury [] Angry [] Fearful [] Anxious [] Often cries [] Exhaustion [] Unable to work [] Unable to attend amish [] Unable to walk/stand [] Unable to read [] Unable to drive [] Unable to eat/drink [] Unable to sleep [] Unable to be with family [] Patient intubated [] Other: Summary nurse setting in room Time spent with patient
--- NOTE | 2020-01-07 13:47 | PM.PN ---
Subjective Subjective: Interval history: Chart reviewed, AM labs noted including decreased leukocytosis, drop in Hg, improved renal function. Will repeat digoxin level in AM. VSS. Patient seen and examined, resting in bed, no apparent distress, denies any pain but states she has numbness in her feet. She is aware she is in the hospital, lives with her daughter, states she takes her own medications. Medications: Reviewed: Yes Medication Review Details: Active Medications Generic Name Dose Route Start Last Admin Trade Name Freq PRN Reason Stop Dose Admin Acetaminophen 650 mg 01/07/20 01:01 Tylenol PO Q6H PRN Mild/Mod Pain Or Temp >/= 101 Aspirin 81 mg 01/07/20 09:00 01/07/20 09:34 Aspirin Ec PO 81 mg DAILY JACK Administration Atorvastatin Calci um 20 mg 01/07/20 09:00 01/07/20 09:34 Lipitor PO 20 mg DAILY JACK Administration Dextrose 25 ml 01/07/20 09:30 D50w IVP ONCE PRN hypoglycemia prot ocol Protocol Dextrose 50 ml 01/07/20 09:30 D50w IVP PRN PRN hypoglycemia prot ocol Protocol Diltiazem HCl 300 mg 01/07/20 09:00 01/07/20 09:34 Cardizem Cd (24h r) PO 300 mg DAILY JACK Administration Docusate Sodium 100 mg 01/07/20 09:00 01/07/20 09:35 Colace PO 100 mg BID JACK Administration Glucagon 1 mg 01/07/20 09:30 Glucagen IM ONCE PRN Adult Acute Hypog lycemia Prot. Protocol Sodium Chloride 1,000 mls @ 100 m ls/hr 01/06/20 19:15 01/07/20 13:19 Sodium Chloride 0.9% IV 100 mls/hr .Q10H JACK Administration Levofloxacin/Dextr ose 500 mg in 100 mls @ 100 mls/hr 01/07/20 08:00 01/07/20 11:03 Levaquin-D5w IV 100 mls/hr Q24H JACK Administration Protocol Metronidazole 500 mg in 100 mls @ 100 mls/hr 01/07/20 08:00 01/07/20 09:33 Flagyl Iv IV 100 mls/hr Q8H JACK Administration Protocol Dextrose 500 mls @ 100 mls /hr 01/07/20 09:30 D5w IV ONCE PRN Adult Acute Hypog lycemia Prot Protocol Insulin Aspart 0 unit 01/07/20 21:00 Novolog SUBCUT BEDTIME JACK Protocol Insulin Aspart 0 unit 01/07/20 12:00 01/07/20 13:15 Novolog SUBCUT Not Given TIDWM [facility] Protocol Levothyroxine Sodi um 50 mcg 01/07/20 09:00 01/07/20 09:34 Synthroid PO 50 mcg DAILY [facility] Administration Lisinopril 5 mg 01/07/20 09:00 01/07/20 09:35 Prinivil PO 5 mg DAILY [facility] Administration Magnesium Oxide 400 mg 01/07/20 09:00 01/07/20 09:34 Magox PO 400 mg DAILY [facility] Administration Morphine Sulfate 4 mg 01/07/20 01:01 Morphine IVP Q4H PRN SEVERE PAIN Non-Formulary Medi cation 4.5 mg 01/07/20 09:00 01/07/20 09:41 Rivastigmine Tar trate PO Not Given BID [facility] Ondansetron HCl 4 mg 01/07/20 01:01 Zofran IVP Q6H PRN NAUSEA AND VOMITI NG Warfarin Sodium 2 mg 01/08/20 14:00 Coumadin PO DAILY@1400 [facility] codeine Allergy (Unknown, Verified 11/29/19 08:18) Unknown Vitals/I&O/Wt Last Vital Signs Temp 98.3 F 01/07/20 11:13 Pulse 71 01/07/20 11:13 Resp 18 01/07/20 11:13 BP 113/65 01/07/20 11:13 Pulse Ox 96 01/07/20 11:13 01/06/20 01/07/20 01/07/20 22:59 06:59 14:59 Intake Total 1496.85 / 1496.85 1050 / 2546.85 840 / 840 Output Total 300 / 300 Balance 1496.85 / 1496.85 750 / 2246.85 840 / 840 Weight last 48 hrs Weight 49.895 kg Physical Exam Const: COMMON NORMALS: no apparent distress and oriented x3 GENERAL APPEARANCE: cooperative and comfortable ORIENTATION/CONSCIOUSNESS: Yes awake OTHER: -looks appropriate for age HENMT: COMMON NORMALS: normocephalic, head/scalp atraumatic, hearing grossly normal bilaterally and moist oral mucous membranes HEAD & SCALP: normocephalic and atraumatic Eye: COMMON NORMALS: PERRL, EOMs intact bilaterally and conjunctivae normal CONJUNCTIVA: Yes conjunctivae normal PUPIL: Yes PERRL Neck/C-Spine: COMMON NORMALS: full ROM GENERAL: Yes normal visual inspection and Yes trachea midline Resp: COMMON NORMALS: normal respiratory effort, no retractions, no use of accessory muscles and clear to auscultation bilaterally EFFORT & INSPECTION: Yes able to speak in complete sentences, Yes symmetric chest movement and No tachypneic AUSCULTATION: clear to auscultation bilaterally Cardio: COMMON NORMALS: regular rate, regular rhythm, S1 normal heart sound, S2 normal heart sound and no murmurs RATE: regular rate RHYTHM: regular rhythm HEART SOUNDS: S1 normal and S2 normal GI: COMMON NORMALS: normal to inspection, nondistended, normoactive bowel sounds, soft to palpation and non-tender PALPATION: Yes soft Extremity: COMMON NORMALS: normal to inspection, full ROM, no clubbing, cyanosis or edema and no pedal edema Neuro: COMMON NORMALS: oriented x3, moves all extremities, no focal motor deficits and no sensory deficits noted Psych: COMMON NORMALS: mental status grossly normal, thought process normal, cooperative and speech normal SPEECH: Yes normal speech MOOD & AFFECT: Yes flat affect THOUGHT PROCESS: normal thought process Skin: COMMON NORMALS: no rashes or lesions noted, no jaundice, no petechiae and no mottling GENERAL SKIN EXAM: no rashes or lesions noted Data : 01/07/20 05:19 01/07/20 05:19 Micro: Microbiology 01/06/20 19:32 Blood Culture - Preliminary Blood SPECIMEN COLLECTED 01/06/20 19:22 Blood Culture - Preliminary Blood SPECIMEN COLLECTED A&P Assessment and plan (1) Altered mental status: -likely multifactorial with noted infection and digoxin toxicity -has baseline dementia -re-orient as needed, fall precautions -treatment of infection as noted below Status: Acute Qualifiers: Altered mental status type: delirium Qualified Code(s): R41.0 - Disorientation, unspecified (2) Diverticulitis: -noted to have evidence of mild sigmoid diverticulitis on imaging, noted lactic acidosis -continue levaquin, metronidazole -on CLD, advance as tolerated -on IVF hydration Status: Acute (3) Digoxin toxicity: -noted elevated digoxin level which may be contributing to change in mental status -repeat level tomorrow -continue to hold digoxin Status: Acute Qualifiers: Encounter type: initial encounter Injury intent: accidental or unintentional Qualified Code(s): T46.0X1A - Poisoning by cardiac-stimulant glycosides and drugs of similar action, accidental (unintentional), initial encounter (4) Chronic anticoagulation: -patient is on chronic AC with Coumadin secondary to chronic atrial fibrillation -INR therapeutic (2.61); daily check -continue coumadin Status: Chronic (5) Hypothyroidism: -has hx of hypothyroidism -continue levothyroxine Status: Chronic Qualifiers: Hypothyroidism type: unspecified Qualified Code(s): E03.9 - Hypothyroidism, unspecified (6) Atrial fibrillation: -rate controlled, VSS -telemetry monitoring -hold digoxin due to elevated levels; continue diltiazem -on AC with coumadin Status: Chronic Qualifiers: Atrial fibrillation type: unspecified chronic Qualified Code(s): I48.20 - Chronic atrial fibrillation, unspecified (7) Diastolic heart failure: -has known hx of chronic diastolic CHF, no acute exacerbation -Echo (03/2018): EF=55%, mild pulmonary HTN, trace MR, trace AR, moderate TR Status: Chronic Qualifiers: Heart failure chronicity: chronic Qualified Code(s): I50.32 - Chronic diastolic (congestive) heart failure (8) Diabetes mellitus: -has NIDDM type II -Accucheks, hypoglycemia precautions, ISS -hold metformin as had CT with contrast Status: Chronic Qualifiers: Diabetes mellitus complication status: without complication 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: without marine oil terminal superintendent use Diabetes mellitus type: type 2 Qualified Code(s): E11.9 - Type 2 diabetes mellitus without complications (9) Hypertension: -VSS; continue to monitor -continue oral antihypertensives Status: Chronic Qualifiers: Hypertension type: essential hypertension Qualified Code(s): I10 - Essential (primary) hypertension (10) Alzheimer disease: Status: Chronic Qualifiers: Alzheimer's disease onset: late-onset Dementia behavioral disturbance: without behavioral disturbance Qualified Code(s): G30.1 - Alzheimer's disease with late onset; F02.80 - Dementia in other diseases classified elsewhere without behavioral disturbance (11) Depression: Status: Chronic Qualifiers: Depression Type: unspecified Qualified Code(s): F32.9 - Major depressive disorder, single episode, unspecified (12) Hyperlipidemia: Status: Chronic Qualifiers: Hyperlipidemia type: unspecified Qualified Code(s): E78.5 - Hyperlipidemia, unspecified Additional A&P Information -DVT ppx not needed as on coumadin -Dispo: return home with daughter Xiomy Goldstein ([phone]) -Code status: DNR/DNI Attestations Medical Necessity Statement*: Patient requires hospitalization for continued management of digoxin toxicity and IV antibiotics for diverticulitis. Time Spent in Patient Care: Greater than 35 minutes (>than 50% of time spent in counselling and/or direct pt care on unit). 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 Comprehensive Diagnoses Altered mental status R41.0 Altered mental status type: delirium Diverticulitis K57.92 Digoxin toxicity T46.0X1A Encounter type: initial encounter Injury intent: accidental or unintentional Chronic anticoagulation Z79.01 Hypothyroidism E03.9 Hypothyroidism type: unspecified Atrial fibrillation I48.20 Atrial fibrillation type: unspecified chronic Diastolic heart failure I50.32 Heart failure chronicity: chronic Diabetes mellitus E11.9 Diabetes mellitus complication status: without complication 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
[2020-01-07 16:26] LABS: Glucose Point of Care 111 mg/dL (70-110)
--- NOTE | 2020-01-07 20:41 | PC.NURSE ---
Patient in [place] stating I need to call her daughter now to take her home as she does not want to be here any loner and doesnt feel there is any reason for her to be here. Notified Dr Rose and called daughter Xiomy, after discussion with daughter and Dr Rose, patient agreed to stay tonight. Will address condition in the morning. Will continue to monitor patient tonight.
[2020-01-07 21:27] LABS: Glucose Point of Care 138 mg/dL (70-110)
[2020-01-08] VITALS: BP 107/68; PULSE 78; RESP 17; TEMP 36.6; O2SAT 96
[2020-01-08 04:00] VITALS: BP 110/76; PULSE 76; RESP 18; TEMP 36.6; O2SAT 95
[2020-01-08 05:37] LABS: Basophils # 0.1 10^3/uL (0.0-0.1); Basophils % 0.8 %; Eosinophils # 0.1 10^3/uL (0.0-0.8); Eosinophils % 1.5 %; Hematocrit 30.4 % (37.0-47.0); Hemoglobin 9.7 g/dL (11.5-15.3); Lymphocytes # 2.7 10^3/uL (0.8-4.8); Lymphocytes % 41.2 %; Mean Corpuscular HGB Conc 31.9 g/dL (30.0-36.0); Mean Corpuscular Hemoglobin 29.8 pg (28.0-34.0); Mean Corpuscular Volume 93.3 fL (81-99); Mean Platelet Volume 10.7 fL (7.4-10.4); Monocytes # 0.6 10^3/uL (0.2-0.9); Monocytes % 8.9 %; Neutrophils # 3.1 10^3/uL (1.8-7.7); Neutrophils % 47.4 %; Nucleated Red Blood Cells % 0 %; Platelet Count 274 10^3/cmm (130-400); Red Blood Count 3.26 10^6/uL (4.1-5.3); Red Cell Distribution Width 12.3 % (12.1-15.1); White Blood Count 6.5 10^3/uL (4.0-10.0)
[2020-01-08 05:54] LABS: Lactic Acid level (Lactate) 0.7 mmol/L (0.5-2.2)
[2020-01-08 05:57] LABS: Anion Gap 11.2 (5-19); Blood Urea Nitrogen 7 mg/dL (8-23); Calcium 8.7 mg/dL (8.5-10.5); Carbon Dioxide 29 mmol/L (22-29); Chloride 108 mmol/L (98-107); Digoxin 1.2 ng/mL (0.6-1.2); Glucose 97 mg/dL (65-115); Osmolality Calculated 294 mOsm/kg (285-295); Potassium 4.2 mmol/L (3.5-5.1); Sodium 144 mmol/L (136-145)
[2020-01-08 06:25] LABS: INR 3.22 (0.8-1.2)
[2020-01-08 06:40] LABS: Glucose Point of Care 103 mg/dL (70-110)
[2020-01-08 08:00] VITALS: BP 124/74; PULSE 70; RESP 16; TEMP 36.7; O2SAT 96
[2020-01-08] MEDS: atorvastatin 40 mg Tablet 20 MG PO (08:56)
[2020-01-08] MEDS: magnesium oxide 400 mg tablet PO (08:57)
[2020-01-08] MEDS: lisinopril 5 mg Tablet PO (08:57)
[2020-01-08] MEDS: dilTIAZem ER (24HR) 300 mg Capsule PO (08:57)
[2020-01-08] MEDS: docusate sodium 100 mg Capsule PO (08:57)
[2020-01-08] MEDS: levothyroxine 50 mcg Tablet PO (08:57)
[2020-01-08] MEDS: aspirin 81 mg EC Tablet PO (08:57)
[2020-01-08] MEDS: metroNIDAZOLE IV 500 MG/100 ML PREMIX 100 MG IV (08:58)
[2020-01-08 11:14] LABS: Glucose Point of Care 145 mg/dL (70-110)
[2020-01-08] MEDS: levofloxacin-dextrose 5 % 500 MG/100 ML PREMIX 100 MG IV (11:17)
[2020-01-08 11:47] VITALS: BP 122/72; PULSE 73; RESP 16; TEMP 37; O2SAT 96
--- NOTE | 2020-01-08 12:55 | P.DS_ITS ---
Discharge Providers Date of Admission: 01/06/20 23:10 Date of Discharge: January 08, 2020 Attending Provider at Admission: Lor Rose MD Attending Provider at Discharge: Mitzy Romero MD Primary Care Provider: Mariajose Brice APN Diagnoses at Discharge Discharge Diagnosis (1) Altered mental status: Status: Acute Problem details: -likely multifactorial with noted infection and digoxin toxicity -has baseline dementia -re-orient as needed, fall precautions -treatment of infection as noted below Qualifiers: Altered mental status type: delirium Qualified Code(s): R41.0 - Disorientation, unspecified (2) Diverticulitis: Status: Acute Problem details: -noted to have evidence of mild sigmoid diverticulitis on imaging, noted lactic acidosis -continue levaquin, metronidazole; continue flagyl, cipro chosen per insurance formulary -off IVF hydration (3) Digoxin toxicity: Status: Acute Problem details: -noted elevated digoxin level which may be contributing to change in mental status -repeat level today wnl -can resume digoxin Qualifiers: Encounter type: initial encounter Injury intent: accidental or unintentional Qualified Code(s): T46.0X1A - Poisoning by cardiac-stimulant glycosides and drugs of similar action, accidental (unintentional), initial encounter (4) Chronic anticoagulation: Status: Chronic Problem details: -patient is on chronic AC with Coumadin secondary to chronic atrial fibrillation -INR supratherapeutic (3.22) -continue coumadin (5) Hypothyroidism: Status: Chronic Problem details: -has hx of hypothyroidism -continue levothyroxine Qualifiers: Hypothyroidism type: unspecified Qualified Code(s): E03.9 - Hypothyroidism, unspecified (6) Atrial fibrillation: Status: Chronic Problem details: -rate controlled, VSS -telemetry monitoring -hold digoxin due to elevated levels; continue diltiazem -on AC with coumadin Qualifiers: Atrial fibrillation type: unspecified chronic Qualified Code(s): I48.20 - Chronic atrial fibrillation, unspecified (7) Diastolic heart failure: Status: Chronic Problem details: -has known hx of chronic diastolic CHF, no acute exacerbation -Echo (03/2018): EF=55%, mild pulmonary HTN, trace MR, trace AR, moderate TR Qualifiers: Heart failure chronicity: chronic Qualified Code(s): I50.32 - Chronic diastolic (congestive) heart failure (8) Diabetes mellitus: Status: Chronic Problem details: -has NIDDM type II -Accucheks, hypoglycemia precautions, ISS -can resume metformin as now 48 hrs since contrast given Qualifiers: Diabetes mellitus type: type 2 Diabetes mellitus fdc insulin use: without terminal gauger supervisor use Diabetes mellitus complication status: without complication Qualified Code(s): E11.9 - Type 2 diabetes mellitus without complications (9) Hypertension: Status: Chronic Problem details: -VSS; continue to monitor -continue oral antihypertensives Qualifiers: Hypertension type: essential hypertension Qualified Code(s): I10 - Esse ntial (primary) hypertension (10) Alzheimer disease: Status: Chronic Problem details: exelon 4.5 bid started 12/2019 Qualifiers: Alzheimer's disease onset: late-onset Dementia behavioral disturbance: without behavioral disturbance Qualified Code(s): G30.1 - Alzheimer's disease with late onset; F02.80 - Dementia in other diseases classified elsewhere without behavioral disturbance (11) Depression: Status: Chronic Qualifiers: Depression Type: unspecified Qualified Code(s): F32.9 - Major depressive disorder, single episode, unspecified (12) Hyperlipidemia: Status: Chronic Qualifiers: Hyperlipidemia type: unspecified Qualified Code(s): E78.5 - Hyper lipidemia, unspecified Reason for Visit Reason for Visit: Reason For Visit: bilat leg numbness / tremors / n/v Hospital Course Hospital Course: Patient was admitted to the medical surgical floor and placed on telemetry monitoring. She was noted to have high digoxin level and has not received any digoxin while hospitalized. Incidentally she was noted to have mild sigmoid diverticulitis on imaging for which she was started on dual antibiotic therapy. During my encounters with the patient she has been appropriate, alert and oriented x3 but has been noted to have some waxing and waning in terms of her mental status likely due to underlying dementia. Digoxin level has normalized as of today it can be resumed. Metformin was held during her hospitalization due to having received contrast for abdominal imaging. She can resume her metformin on return home as it has been 48 hours since contrast was given. Patient has been on treatment with fluoroquinolones which may enhance Coumadin activity so I have decreased the dose of Coumadin to 2.5 mg once daily. She will need to have INR checked in 2 to 3 days, last INR as of today is 3.22. She will continue oral antibiotic treatment for an additional 5 days to complete the treatment course for acute diverticulitis. Patient has been tolerating oral intake without difficulty and has been hemodynamically stable throughout her hospitalization. She will need to follow-up with her primary care provider within 1 week. Discharge Summary: -Patient to follow-up with a primary care provider within 1 week. She will need INR checked in 2 to 3 days due to noted adjustment of her Coumadin and supratherapeutic INR on discharge. Physical Exam Const: COMMON NORMALS: no apparent distress and oriented x3 GENERAL APPEARANCE: cooperative and comfortable ORIENTATION/CONSCIOUSNESS: Yes awake OTHER: -looks appropriate for age HENMT: COMMON NORMALS: normocephalic, head/scalp atraumatic, hearing grossly normal bilaterally and moist oral mucous membranes HEAD & SCALP: normocephalic and atraumatic Eye: COMMON NORMALS: PERRL, EOMs intact bilaterally and conjunctivae normal CONJUNCTIVA: Yes conjunctivae normal PUPIL: Yes PERRL Neck/C-Spine: COMMON NORMALS: full ROM GENERAL: Yes normal visual inspection and Yes trachea midline Resp: COMMON NORMALS: normal respiratory effort, no retractions, no use of accessory muscles and clear to auscultation bilaterally EFFORT & INSPECTION: Yes able to speak in complete sentences, Yes symmetric chest movement and No tachypneic AUSCULTATION: clear to auscultation bilaterally Cardio: COMMON NORMALS: regular rate, regular rhythm, S1 normal heart sound, S2 normal heart sound and no murmurs RATE: regular rate RHYTHM: regular rhythm HEART SOUNDS: S1 normal and S2 normal GI: COMMON NORMALS: normal to inspection, nondistended, normoactive bowel sounds, soft to palpation and non-tender PALPATION: Yes soft Extremity: COMMON NORMALS: normal to inspection, full ROM, no clubbing, cyanosis or edema and no pedal edema Neuro: COMMON NORMALS: oriented x3, moves all extremities, no focal motor deficits and no sensory deficits noted Psych: COMMON NORMALS: mental status grossly normal, thought process normal, cooperative and speech normal SPEECH: Yes normal speech MOOD & AFFECT: Yes flat affect THOUGHT PROCESS: normal thought process Skin: COMMON NORMALS: no rashes or lesions noted, no jaundice, no petechiae and no mottling GENERAL SKIN EXAM: no rashes or lesions noted Discharge Data Data Completed and Pending: Completed Studies During Hospitalization Category Date Time Status CT abdomen pelvis w con* [id number] Urge nt Cat Scan 01/06/20 19:[address] head wo con* [id number] Urgent Cat Scan 01/06/20 19:05 Completed XR chest 1V juan ble [id number] Stat Exams 01/06/20 19:05 Completed Pending at discharge Category Date Time Status Blood Culture Sta t Lab 01/06/20 19:32 Results Prothrombin Time INR AM LABS Lab 01/09/20 04:00 Ordered Prothrombin Time INR AM LABS Lab 01/10/20 04:00 Ordered Labs from last 24 hours 01/08/20 01/08/20 01/08/20 11:04 06:36 05:29 WBC RBC Hgb Hct MCV MCH MCHC RDW Plt Count MPV Neut % (Auto) Lymph % (Auto) Bureau % (Auto) Eos % (Auto) Baso % (Auto) Neut # (Auto) Lymph # (Auto) Bureau # (Auto) Eos # (Auto) Baso # (Auto) Nucleated RBC % (a uto) Nucleated RBCs # PT INR Sodium 144 Potassium 4.2 Chloride 108 H Carbon Dioxide 29 Anion Gap 11.2 BUN 7 L Creatinine 1.0 H Glucose 97 POC Glucose 145 103 Calculated Osmolal ity 294 Lactic Acid (Sepsi s) Calcium 8.7 Digoxin 01/08/20 01/08/20 01/08/20 05:29 05:29 05:29 WBC 6.5 RBC 3.26 L Hgb 9.7 L Hct 30.4 L MCV 93.3 MCH 29.8 MCHC 31.9 RDW 12.3 Plt Count 274 MPV 10.7 H Neut % (Auto) 47.4 Lymph % (Auto) 41.2 Bureau % (Auto) 8.9 Eos % (Auto) 1.5 Baso % (Auto) 0.8 Neut # (Auto) 3.1 Lymph # (Auto) 2.7 Bureau # (Auto) 0.6 Eos # (Auto) 0.1 Baso # (Auto) 0.1 Nucleated RBC % (a uto) 0 Nucleated RBCs # 0.0 PT INR Sodium Potassium Chloride Carbon Dioxide Anion Gap BUN Creatinine Glucose POC Glucose Calculated Osmolal ity Lactic Acid (Sepsi s) 0.7 Calcium Digoxin 1.2 01/08/20 01/07/20 01/07/20 05:29 21:12 16:13 WBC RBC Hgb Hct MCV MCH MCHC RDW Plt Count MPV Neut % (Auto) Lymph % (Auto) Bureau % (Auto) Eos % (Auto) Baso % (Auto) Neut # (Auto) Lymph # (Auto) Bureau # (Auto) Eos # (Auto) Baso # (Auto) Nucleated RBC % (a uto) Nucleated RBCs # PT 34.20 H INR 3.22 H Sodium Potassium Chloride Carbon Dioxide Anion Gap BUN Creatinine Glucose POC Glucose 138 111 Calculated Osmolal ity Lactic Acid (Sepsi s) Calcium Digoxin Vitals: Last Vital Signs Temp 98.6 F 01/08/20 11:47 Pulse 73 01/08/20 11:47 Resp 16 01/08/20 11:47 BP 122/72 01/08/20 11:47 Pulse Ox 96 01/08/20 11:47 Discharge Plan Discharge Patient Disposition: Home, Self-Care Condition: Stable Prescriptions: New ciprofloxacin HCl 500 mg tablet 500 mg PO BID 5 Days Qty: 10 RF: 0 metronidazole 500 mg tablet 500 mg PO Q8H 5 Days Qty: 15 RF: 0 Coumadin 2.5 mg tablet 2.5 mg PO DAILY Qty: 30 RF: 0 Continued magnesium oxide 400 mg magnesium capsule 400 mg PO DAILY RF: 0 multivitamin Tablet 1 tab PO DAILY RF: 0 tramadol 50 mg tablet 50 mg PO DAILY PRN (Reason: Pain) RF: 0 levothyroxine 50 mcg capsule 50 mcg PO DAILY RF: 0 metformin 500 mg tablet 500 mg PO BID RF: 0 digoxin [Digox] 125 mcg (0.125 mg) tablet 125 mcg PO DAILY RF: 0 omega-3 fatty acids [Fish Oil Concentrate] 1,000 mg capsule 1,000 mg PO DAILY RF: 0 lisinopril 5 mg tablet 5 mg PO DAILY RF: 0 diltiazem HCl 300 mg capsule,extended release 24hr 300 mg PO DAILY RF: 0 pravastatin 40 mg tablet 40 mg PO DAILY RF: 0 aspirin [Adult Low Dose Aspirin] 81 mg tablet,delayed release (DR/EC) 81 mg PO DAILY RF: 0 rivastigmine tartrate 4.5 mg capsule 4.5 mg PO BID Qty: 60 RF: 5 Discontinued warfarin 5 mg tablet 5 mg PO DIRECTED RF: 0 Discharge Orders: Discharge Order (Routine); Ordered 01/08/20 Ordered By: Mitzy Romero Referrals: Mariajose Brice, PHYSICAL SCIENCES INSTRUCTOR [Primary Care Provider] - 4-7 days (Patient needs INR checked in 2-3 days. Decreased dose of coumadin due to high INR. Treated for acute diverticulitis. ) Discharge Diet: Cardiac Discharge Activity: Resume usual activity Activity Restrictions/Additional Instructions: -please have INR level checked in 2-3 days. Note that dose of warfarin has been decreased to 2.5 mg daily. Discharge Attestations Time Spent in Discharge Care*: greater than 30 min Specific Discharge Activities: Specific discharge activities: educating patient, discussing with high risk case manager/social workers/dc planners, documenting/other paperwork and evaluating patient/reviewing data Status at Discharge: Cognitive status at discharge: cognitively intact , Behavioral status at discharge: cooperative , Functional status at discharge: independent ambulation Overall status at discharge: patient is back to baseline Quality Metrics Clinical Quality Measures During this hospital stay, did patient experience: None Coding Level of Care Code Acute Smoking Tobacco Packing Machine Hand for Dominguez Palmer Diagnoses Altered mental status R41.0 Altered mental status type: delirium Diverticulitis K57.92 Digoxin toxicity T46.0X1A Encounter type: initial encounter Injury intent: accidental or unintentional Chronic anticoagulation Z79.01 Hypothyroidism E03.9 Hypothyroidism type: unspecified Atrial fibrillation I48.20 Atrial fibrillation type: unspecified chronic Diastolic heart failure I50.32 Heart failure chronicity: chronic Diabetes mellitus E11.9 Diabetes mellitus type: type 2 Diabetes mellitus fdc insulin use: without terminal gauger supervisor use Diabetes mellitus complication status: without complication Hypertension I10 Hypertension type: essential hypertension Alzheimer disease G30.1; F02.80 Alzheimer's disease onset: late-onset Dementia behavioral disturbance: without behavioral disturbance Depression F32.9 Depression Type: unspecified Hyperlipidemia E78.5 Hyperlipidemia type: unspecified
[2020-01-08 13:22] VITALS: BP 122/72; PULSE 73; RESP 16; TEMP 37; O2SAT 96
== END 2020-01-08 14:00 | disposition home or self-care (01) | DRG 392 ==
LOC: ER 22:05 → MEDSURG 01-07 00:21
PROVIDERS: Admitting Provider Hospitalist; Emergency Provider Emergency Medicine; Family Provider Nurse Practitioner; PCP Nurse Practitioner; Visit Provider Family Medicine
DX: K57.32 Diverticulitis of large intestine without perforation or abscess without bleeding (principal); I50.32 Chronic diastolic (congestive) heart failure; E87.2 Acidosis; T46.0X5A Adverse effect of cardiac-stimulant glycosides and drugs of similar action, initial encounter; G30.9 Alzheimer's disease, unspecified; F02.80 Dementia in other diseases classified elsewhere, unspecified severity, without behavioral disturbance, psychotic disturbance, mood disturbance, and anxiety; I48.91 Unspecified atrial fibrillation; F32.9 Major depressive disorder, single episode, unspecified; E11.42 Type 2 diabetes mellitus with diabetic polyneuropathy; I11.0 Hypertensive heart disease with heart failure; M79.7 Fibromyalgia; Z86.73 Personal history of transient ischemic attack (TIA), and cerebral infarction without residual deficits; E78.5 Hyperlipidemia, unspecified; G47.33 Obstructive sleep apnea (adult) (pediatric); Z95.0 Presence of cardiac pacemaker; Z96.659 Presence of unspecified artificial knee joint; Z87.891 Personal history of nicotine dependence; Z79.01 Long term (current) use of anticoagulants; Z66 Do not resuscitate; Z79.84 Long term (current) use of oral hypoglycemic drugs; Z79.82 Long term (current) use of aspirin
CPT/HCPCS: 12345; 36415; 36416; 36600; 70450; 71045; 74177; 80048; 80053; 80162; 80306; 80307; 81001; 82140; 82803; 82962; 83605; 83690; 83735; 84443; 85025; 85610; 87040; 87804; 96372; 99283; A9270; J1815; J1956; J2543; J7030; Q9967; S0030

== ENCOUNTER → 2020-02-28 12:53 | Outpatient (BNVA) | payer MEDICARE, SELFPAY | PROVIDERS: Family Provider Nurse Practitioner; PCP Nurse Practitioner; Visit Provider Specialist | DX: G30.1 Alzheimer's disease with late onset (principal); F02.80 Dementia in other diseases classified elsewhere, unspecified severity, without behavioral disturbance, psychotic disturbance, mood disturbance, and anxiety; Z87.891 Personal history of nicotine dependence | CPT/HCPCS: 99213 ==

== ENCOUNTER 2020-06-04 17:14 | Emergency (ER) | payer MEDICARE, SELFPAY ==
[2020-06-04 17:15] VITALS: BP 148/76; PULSE 78; RESP 18; TEMP 36.9; O2SAT 98; BMI 23.0
--- NOTE | 2020-06-04 17:32 | XRR_ITS ---
PROCEDURE INFORMATION: Exam: XR Chest, 1 View Exam date and time: 06/04/2020 6:27 PM Age: 74 years old Clinical indication: Other: Weakness TECHNIQUE: Imaging protocol: XR of the chest Views: 1 view. COMPARISON: CR XR chest 1V portable [id number] 01/06/2020 7:27 PM FINDINGS: Lungs: Unremarkable. No consolidation. Pleural space: Unremarkable. No pleural effusion. No pneumothorax. Heart/Mediastinum: Cardiomegaly, similar to the prior study. There is a 2 lead pacemaker device unchanged from the prior exam. Bones/joints: There are degenerative changes in the thoracic spine and across the acromioclavicular joints. XR/XR chest 1V portable [id number] IMPRESSION: Cardiomegaly is similar to the prior study. No evidence for acute cardiopulmonary disease.
--- NOTE | 2020-06-04 17:42 | W.ED.ABDPA2 ---
Documented by User: Tawanna Mcnair MD 06/05/20 13:28 HPI - Abdominal Pain General: Chief Complaint: Abdominal Pain Stated Complaint: weakness Time Seen by Provider: 06/04/20 17:23 History of Present Illness: HPI narrative: This patient is a 74-year-old female who presents today with concerns for decreased activity and decreased appetite. She has a history of Alzheimer's and lives with her daughter. Her daughter said she is normally active and outside doing things but this past week she has been sleeping 23 hours every day. They took her to her primary care office a few days ago and they thought she might have a urinary tract infection. They treated her with antibiotics while they were waiting for the culture results to come back but they came back negative and the antibiotic has been stopped. The patient denies any complaints. She just says that she feels very tired. She is on digoxin, levothyroxine, pravastatin, warfarin. She also takes an aspirin every day. She was taken off her metformin and antihypertensives in the spring after significant weight loss and chronic diarrhea. Review of Systems General: Reports: ROS unobtainable due to mental status (Alzheimer's) and Other (Per daughter, no fever, cough, vomiting, diarrhea. Patient denies urinary symptoms. Decreased appetite. Weight loss.) [facility] ED PFSH: Medical History Atrial fibrillation -rate controlled, VSS -telemetry monitoring -hold digoxin due to elevated levels; continue diltiazem -on AC with coumadin Depression Diabetes mellitus -has NIDDM type II -Accucheks, hypoglycemia precautions, ISS -can resume metformin as now 48 hrs since contrast given Diastolic heart failure -has known hx of chronic diastolic CHF, no acute exacerbation -Echo (03/2018): EF=55%, mild pulmonary HTN, trace MR, trace AR, moderate TR Fibromyalgia History of CVA (cerebrovascular accident) Hyperlipidemia Hypertension -VSS; continue to monitor -continue oral antihypertensives Hypothyroidism -has hx of hypothyroidism -continue levothyroxine Neuropathy Sleep apnea unclear if cpap machine working Surgical History S/P appendectomy S/P cardiac pacemaker procedure S/P carpal tunnel release S/P cholecystectomy S/P gastric surgery S/P hernia repair S/P hysterectomy S/P knee replacement Family History Father Stroke Mother Diabetes Hypertension CAD (coronary artery disease) Social History Smoking and tobacco status: former smoker Quit status (tobacco): has quit using tobacco Year quit tobacco: 1986 Alcohol intake: never History of recent travel: No Physical Exam Const: COMMON NORMALS: no acute distress, patient oriented x3, no limitations and alert GENERAL APPEARANCE: cooperative and comfortable HENMT: HEAD & SCALP: normal to inspection FACE & SINUS: normal facial exam Eye: GENERAL EYE: appearance normal, both eyes and all related structures Neck/C-Spine: COMMON NORMALS: supple, no meningeal signs and no JVD Chest: COMMONS NORMALS: normal inspection of the chest Resp: COMMON NORMALS: normal respiratory effort, No use of accessory muscles and clear to auscultation bilaterally AUSCULTATION: clear to auscultation bilaterally Cardio: COMMON NORMALS: no JVD, regular rate, regular rhythm and No murmurs present (Cardio) RATE: regular rate RHYTHM: regular rhythm GI: COMMON NORMALS: Normal to inspection, nondistended, normoactive bowel sounds present, Soft to palpation and non-tender INSPECTION: Yes normal to inspection AUSCULTATION: Yes normoactive bowel sounds PALPATION: Yes Soft to palpation Back/Pelvis: COMMON NORMALS: thoracic and lumbar spine normal to inspection Extremity: COMMON NORMALS: normal to inspection Neuro: COMMON NORMALS: patient oriented x3, moves all extremities, no focal motor deficits and no sensory deficits noted SENSORIUM/ORIENTATION: Yes alert MENINGEAL SIGNS: Yes no meningeal signs Psych: COMMON NORMALS: mental status grossly normal, cooperative and normal affect Skin: COMMON NORMALS: no rashes or lesions noted and turgor normal GENERAL SKIN EXAM: no rashes or lesions noted and turgor normal Course Vital Signs: Vital signs: Vital Signs Temperature 98.4 F 06/04/20 17:15 Pulse Rate 75 06/04/20 20:32 Respiratory Rate 16 06/04/20 20:32 Blood Pressure 150/77 06/04/20 20:32 Pulse Oximetry 98 06/04/20 20:32 MDM - Abdominal Pain Lab Data: Labs: Lab Results 06/04/20 06/04/20 06/04/20 Range/Units 17:54 17:54 17:54 WBC 14.6 H (4.0-10.0) 10^3/ uL RBC 4.34 (4.1-5.3) 10^6/u L Hgb 12.2 (11.5-15.3) g/dL Hct 38.3 (37.0-47.0) % MCV 88.2 (81-99) fL MCH 28.1 (28.0-34.0) pg MCHC 31.9 (30.0-36.0) g/dL RDW 11.9 L (12.1-15.1) % Plt Count 383 (130-400) 10^3/c mm MPV 11.0 H (7.4-10.4) fL Neut % (Auto) 76.0 % Lymph % (Auto) 12.2 % [place] % (Auto) 10.0 % Eos % (Auto) 0.9 % Baso % (Auto) 0.5 % Neut # (Auto) 11.10 H (1.8-7.7) 10^3/u L Lymph # (Auto) 1.8 (0.8-4.8) 10^3/u L [place] # (Auto) 1.5 H (0.2-0.9) 10^3/u L Eos # (Auto) 0.1 (0.0-0.8) 10^3/u L Baso # (Auto) 0.1 (0.0-0.1) 10^3/u L Nucleated RBC % (a uto) 0 % Nucleated RBCs # 0.0 /100WBC PT 31.50 H (12.1-14.9) SECO NDS INR 2.90 H (0.8-1.2) Sodium 134 L (136-145) mmol/L Potassium 4.0 (3.5-5.1) mmol/L Chloride 96 L (98-107) mmol/L Carbon Dioxide 27 (22-29) mmol/L Anion Gap 15.0 (5-19) BUN 20 (8-23) mg/dL Creatinine 1.1 H (0.5-0.9) mg/dL GFR Calculation Not Reportable Glucose 175 H (65-115) mg/dL Calculated Osmolal ity 285 (285-295) mOsm/k g Calcium 8.8 (8.5-10.5) mg/dL Magnesium 2.1 (1.7-2.3) mg/dL Total Bilirubin 0.5 (0.15-1.2) mg/dL AST 22 (0-32) U/L ALT 12 (0-33) U/L Alkaline Phosphata se 92 (35-105) IU/L Total Protein 7.0 (6.6-8.7) g/dL Albumin 3.4 L (3.5-5.2) g/dL Globulin 3.6 (1.3-4.6) g/dL TSH 1.29 (0.27-4.20) uIU/ mL Urine Color (Yellow) Urine Appearance (CLEAR) Urine pH (5-7) Ur Specific Gravit y (1.005-1.030) Urine Protein (Negative) Urine Glucose (UA) (Normal) Urine Ketones (Negative) Urine Blood (Negative) Urine Nitrate (Negative) Urine Bilirubin (Negative) Urine Urobilinogen (Negative) mg/dL Ur Leukocyte Akua ase (Negative) Urine RBC (0-2) /hpf Urine WBC (0-5) /hpf Ur Squamous Epith Cells (0-5) /hpf Amorphous Sediment Urine Bacteria (NONE) /hpf Hyaline Casts /lpf Fine Granular Cast s /lpf Urine Mucus /hpf Digoxin (0.6-1.2) ng/mL 06/04/20 06/04/20 Range/Units 17:54 18:40 WBC (4.0-10.0) 10^3/ uL RBC (4.1-5.3) 10^6/u L Hgb (11.5-15.3) g/dL Hct (37.0-47.0) % MCV (81-99) fL MCH (28.0-34.0) pg MCHC (30.0-36.0) g/dL RDW (12.1-15.1) % Plt Count (130-400) 10^3/c mm MPV (7.4-10.4) fL Neut % (Auto) % Lymph % (Auto) % [place] % (Auto) % Eos % (Auto) % Baso % (Auto) % Neut # (Auto) (1.8-7.7) 10^3/u L Lymph # (Auto) (0.8-4.8) 10^3/u L [place] # (Auto) (0.2-0.9) 10^3/u L Eos # (Auto) (0.0-0.8) 10^3/u L Baso # (Auto) (0.0-0.1) 10^3/u L Nucleated RBC % (a uto) % Nucleated RBCs # /100WBC PT (12.1-14.9) SECO NDS INR (0.8-1.2) Sodium (136-145) mmol/L Potassium (3.5-5.1) mmol/L Chloride (98-107) mmol/L Carbon Dioxide (22-29) mmol/L Anion Gap (5-19) BUN (8-23) mg/dL Creatinine (0.5-0.9) mg/dL GFR Calculation Glucose (65-115) mg/dL Calculated Osmolal ity (285-295) mOsm/k g Calcium (8.5-10.5) mg/dL Magnesium (1.7-2.3) mg/dL Total Bilirubin (0.15-1.2) mg/dL AST (0-32) U/L ALT (0-33) U/L Alkaline Phosphata se (35-105) IU/L Total Protein (6.6-8.7) g/dL Albumin (3.5-5.2) g/dL Globulin (1.3-4.6) g/dL TSH (0.27-4.20) uIU/ mL Urine Color Yellow (Yellow) Urine Appearance Clear (CLEAR) Urine pH 5 (5-7) Ur Specific Gravit y 1.020 (1.005-1.030) Urine Protein 1+ H (Negative) Urine Glucose (UA) Norm (Normal) Urine Ketones Negative (Negative) Urine Blood 2+ H (Negative) Urine Nitrate Negative (Negative) Urine Bilirubin Neg (Negative) Urine Urobilinogen 1 H (Negative) mg/dL Ur Leukocyte Ak[place] ase Trace H (Negative) Urine RBC 10-15 H (0-2) /hpf Urine WBC 5-10 H (0-5) /hpf Ur Squamous Epith Cells 10-15 H (0-5) /hpf Amorphous Sediment Not Reportable Urine Bacteria 2+ H (NONE) /hpf Hyaline Casts 5-10 H /lpf Fine Granular Cast s 0-4 H /lpf Urine Mucus 2+ /hpf Digoxin 1.5 H (0.6-1.2) ng/mL Discharge Plan Discharge Patient Disposition: Home Clinical Impression: Weakness Acute cystitis Qualifiers: Hematuria presence: without hematuria Qualified Code(s): N30.00 - Acute cystitis without hematuria Condition: Stable Prescriptions: New Keflex 500 mg capsule 500 mg PO Q6H 7 Days Qty: 28 RF: 0 No Action magnesium oxide 400 mg magnesium capsule 400 mg PO DAILY RF: 0 multivitamin Tablet 1 tab PO DAILY RF: 0 levothyroxine 50 mcg capsule 50 mcg PO DAILY RF: 0 omega-3 fatty acids [Fish Oil Concentrate] 1,000 mg capsule 1,000 mg PO DAILY RF: 0 pravastatin 40 mg tablet 40 mg PO DAILY RF: 0 aspirin [Adult Low Dose Aspirin] 81 mg tablet,delayed release (DR/EC) 81 mg PO DAILY RF: 0 rivastigmine tartrate 3 mg capsule 3 mg PO BID Qty: 60 RF: 4 Coumadin 2.5 mg tablet 2.5 mg PO DAILY Qty: 30 RF: 6 digoxin [Digox] 125 mcg (0.125 mg) tablet 125 mcg PO DAILY Qty: 90 RF: 3 Discharge Orders: Discharge Order (Routine); Ordered 06/04/20 Ordered By: Lucretia Leon Referrals: Mariajose Brice APN [Primary Care Provider] - 1-3 days Discharge Diet: Advance as tolerated Discharge Activity: Resume usual activity Patient Instructions: Urinary Tract Infection in Women (ED) Discharge Date/Time: 06/04/20 20:33 Coding Level of Care Code ED Amusement Or Recreation Card Checker for Chg Fwd Exam Comprehensive Documented by User: Lucretia Leon MD 06/04/20 19:54 HPI - Abdominal Pain General: Chief Complaint: Abdominal Pain Stated Complaint: weakness Time Seen by Provider: 06/04/20 17:23 PFSH ED PFSH: Medical History Atrial fibrillation -rate controlled, VSS -telemetry monitoring -hold digoxin due to elevated levels; continue diltiazem -on AC with coumadin Depression Diabetes mellitus -has NIDDM type II -Accucheks, hypoglycemia precautions, ISS -can resume metformin as now 48 hrs since contrast given Diastolic heart failure -has known hx of chronic diastolic CHF, no acute exacerbation -Echo (03/2018): EF=55%, mild pulmonary HTN, trace MR, trace AR, moderate TR Fibromyalgia History of CVA (cerebrovascular accident) Hyperlipidemia Hypertension -VSS; continue to monitor -continue oral antihypertensives Hypothyroidism -has hx of hypothyroidism -continue levothyroxine Neuropathy Sleep apnea unclear if cpap machine working Surgical History S/P appendectomy S/P cardiac pacemaker procedure S/P carpal tunnel release S/P cholecystectomy S/P gastric surgery S/P hernia repair S/P hysterectomy S/P knee replacement Family History Father Stroke Mother Diabetes Hypertension CAD (coronary artery disease) Social History Smoking and tobacco status: former smoker Quit status (tobacco): has quit using tobacco Year quit tobacco: 1986 Alcohol intake: never History of recent travel: No Course Vital Signs: Vital signs: Vital Signs Temperature 98.4 F 06/04/20 17:15 Pulse Rate 75 06/04/20 20:32 Respiratory Rate 16 06/04/20 20:32 Blood Pressure 150/77 06/04/20 20:32 Pulse Oximetry 98 06/04/20 20:32 MDM - Abdominal Pain MDM Narrative: Medical decision making narrative: Patient presents here with generalized weakness. She does appear to have a UTI possibly. Will send urine culture and treat in the meantime. She has no signs of sepsis and her lab work here is normal. She is stable for discharge and return if worsening. Lab Data: Labs: Lab Results 06/04/20 06/04/20 06/04/20 Range/Units 17:54 17:54 17:54 WBC 14.6 H (4.0-10.0) 10^3/ uL RBC 4.34 (4.1-5.3) 10^6/u L Hgb 12.2 (11.5-15.3) g/dL Hct 38.3 (37.0-47.0) % MCV 88.2 (81-99) fL MCH 28.1 (28.0-34.0) pg MCHC 31.9 (30.0-36.0) g/dL RDW 11.9 L (12.1-15.1) % Plt Count 383 (130-400) 10^3/c mm MPV 11.0 H (7.4-10.4) fL Neut % (Auto) 76.0 % Lymph % (Auto) 12.2 % [place] % (Auto) 10.0 % Eos % (Auto) 0.9 % Baso % (Auto) 0.5 % Neut # (Auto) 11.10 H (1.8-7.7) 10^3/u L Lymph # (Auto) 1.8 (0.8-4.8) 10^3/u L [place] # (Auto) 1.5 H (0.2-0.9) 10^3/u L Eos # (Auto) 0.1 (0.0-0.8) 10^3/u L Baso # (Auto) 0.1 (0.0-0.1) 10^3/u L Nucleated RBC % (a uto) 0 % Nucleated RBCs # 0.0 /100WBC PT 31.50 H (12.1-14.9) SECO NDS INR 2.90 H (0.8-1.2) Sodium 134 L (136-145) mmol/L Potassium 4.0 (3.5-5.1) mmol/L Chloride 96 L (98-107) mmol/L Carbon Dioxide 27 (22-29) mmol/L Anion Gap 15.0 (5-19) BUN 20 (8-23) mg/dL Creatinine 1.1 H (0.5-0.9) mg/dL GFR Calculation Not Reportable Glucose 175 H (65-115) mg/dL Calculated Osmolal ity 285 (285-295) mOsm/k g Calcium 8.8 (8.5-10.5) mg/dL Magnesium 2.1 (1.7-2.3) mg/dL Total Bilirubin 0.5 (0.15-1.2) mg/dL AST 22 (0-32) U/L ALT 12 (0-33) U/L Alkaline Phosphata se 92 (35-105) IU/L Total Protein 7.0 (6.6-8.7) g/dL Albumin 3.4 L (3.5-5.2) g/dL Globulin 3.6 (1.3-4.6) g/dL TSH 1.29 (0.27-4.20) uIU/ mL Urine Color (Yellow) Urine Appearance (CLEAR) Urine pH (5-7) Ur Specific Gravit y (1.005-1.030) Urine Protein (Negative) Urine Glucose (UA) (Normal) Urine Ketones (Negative) Urine Blood (Negative) Urine Nitrate (Negative) Urine Bilirubin (Negative) Urine Urobilinogen (Negative) mg/dL Ur Leukocyte Akua ase (Negative) Urine RBC (0-2) /hpf Urine WBC (0-5) /hpf Ur Squamous Epith Cells (0-5) /hpf Amorphous Sediment Urine Bacteria (NONE) /hpf Hyaline Casts /lpf Fine Granular Cast s /lpf Urine Mucus /hpf Digoxin (0.6-1.2) ng/mL 06/04/20 06/04/20 Range/Units 17:54 18:40 WBC (4.0-10.0) 10^3/ uL RBC (4.1-5.3) 10^6/u L Hgb (11.5-15.3) g/dL Hct (37.0-47.0) % MCV (81-99) fL MCH (28.0-34.0) pg MCHC (30.0-36.0) g/dL RDW (12.1-15.1) % Plt Count (130-400) 10^3/c mm MPV (7.4-10.4) fL Neut % (Auto) % Lymph % (Auto) % [place] % (Auto) % Eos % (Auto) % Baso % (Auto) % Neut # (Auto) (1.8-7.7) 10^3/u L Lymph # (Auto) (0.8-4.8) 10^3/u L [place] # (Auto) (0.2-0.9) 10^3/u L Eos # (Auto) (0.0-0.8) 10^3/u L Baso # (Auto) (0.0-0.1) 10^3/u L Nucleated RBC % (a uto) % Nucleated RBCs # /100WBC PT (12.1-14.9) SECO NDS INR (0.8-1.2) Sodium (136-145) mmol/L Potassium (3.5-5.1) mmol/L Chloride (98-107) mmol/L Carbon Dioxide (22-29) mmol/L Anion Gap (5-19) BUN (8-23) mg/dL Creatinine (0.5-0.9) mg/dL GFR Calculation Glucose (65-115) mg/dL Calculated Osmolal ity (285-295) mOsm/k g Calcium (8.5-10.5) mg/dL Magnesium (1.7-2.3) mg/dL Total Bilirubin (0.15-1.2) mg/dL AST (0-32) U/L ALT (0-33) U/L Alkaline Phosphata se (35-105) IU/L Total Protein (6.6-8.7) g/dL Albumin (3.5-5.2) g/dL Globulin (1.3-4.6) g/dL TSH (0.27-4.20) uIU/ mL Urine Color Yellow (Yellow) Urine Appearance Clear (CLEAR) Urine pH 5 (5-7) Ur Specific Gravit y 1.020 (1.005-1.030) Urine Protein 1+ H (Negative) Urine Glucose (UA) Norm (Normal) Urine Ketones Negative (Negative) Urine Blood 2+ H (Negative) Urine Nitrate Negative (Negative) Urine Bilirubin Neg (Negative) Urine Urobilinogen 1 H (Negative) mg/dL Ur Leukocyte Ak[place] ase Trace H (Negative) Urine RBC 10-15 H (0-2) /hpf Urine WBC 5-10 H (0-5) /hpf Ur Squamous Epith Cells 10-15 H (0-5) /hpf Amorphous Sediment Not Reportable Urine Bacteria 2+ H (NONE) /hpf Hyaline Casts 5-10 H /lpf Fine Granular Cast s 0-4 H /lpf Urine Mucus 2+ /hpf Digoxin 1.5 H (0.6-1.2) ng/mL Imaging Data ^: CXR: Radiologist's impression: [address] [address] XRay Report Signed Patient: Jessica Calvert Unit #: [id number] : 1945 Age/Sex: 74 / F ADM Date: 06/04/20 Loc: ER Room/Bed: Attending Dr: Ordering Provider/Ordering MD: Tawanna Mcnair MD Date of Service: 06/04/20 Procedure(s): XR chest 1V portable [id number] Accession Number(s): [id number] Report Number: [id number] PROCEDURE INFORMATION: Exam: XR Chest, 1 View Exam date and time: 06/04/2020 6:27 PM Age: 74 years old Clinical indication: Other: Weakness TECHNIQUE: Imaging protocol: XR of the chest Views: 1 view. COMPARISON: CR XR chest 1V portable [id number] 01/06/2020 7:27 PM FINDINGS: Lungs: Unremarkable. No consolidation. Pleural space: Unremarkable. No pleural effusion. No pneumothorax. Heart/Mediastinum: Cardiomegaly, similar to the prior study. There is a 2 lead pacemaker device unchanged from the prior exam. Bones/joints: There are degenerative changes in the thoracic spine and across the acromioclavicular joints. XR/XR chest 1V portable [id number] IMPRESSION: Cardiomegaly is similar to the prior study. No evidence for acute cardiopulmonary disease. Discharge Plan Discharge Patient Disposition: Home Clinical Impression: Weakness Acute cystitis Qualifiers: Hematuria presence: without hematuria Qualified Code(s): N30.00 - Acute cystitis without hematuria Condition: Stable Prescriptions: New Keflex 500 mg capsule 500 mg PO Q6H 7 Days Qty: 28 RF: 0 No Action magnesium oxide 400 mg magnesium capsule 400 mg PO DAILY RF: 0 multivitamin Tablet 1 tab PO DAILY RF: 0 levothyroxine 50 mcg capsule 50 mcg PO DAILY RF: 0 omega-3 fatty acids [Fish Oil Concentrate] 1,000 mg capsule 1,000 mg PO DAILY RF: 0 pravastatin 40 mg tablet 40 mg PO DAILY RF: 0 aspirin [Adult Low Dose Aspirin] 81 mg tablet,delayed release (DR/EC) 81 mg PO DAILY RF: 0 rivastigmine tartrate 3 mg capsule 3 mg PO BID Qty: 60 RF: 4 Coumadin 2.5 mg tablet 2.5 mg PO DAILY Qty: 30 RF: 6 digoxin [Digox] 125 mcg (0.125 mg) tablet 125 mcg PO DAILY Qty: 90 RF: 3 Discharge Orders: Discharge Order (Routine); Ordered 06/04/20 Ordered By: Lucretia Leon Referrals: Mariajose Brice APN [Primary Care Provider] - 1-3 days Discharge Diet: Advance as tolerated Discharge Activity: Resume usual activity Patient Instructions: Urinary Tract Infection in Women (ED) Discharge Date/Time: 06/04/20 20:33 Coding Level of Care Code ED Amusement Or Recreation Card Checker for Dominguez Fwdenise Exam Comprehensive
[2020-06-04 18:09] LABS: Basophils # 0.1 10^3/uL (0.0-0.1); Basophils % 0.5 %; Eosinophils # 0.1 10^3/uL (0.0-0.8); Eosinophils % 0.9 %; Hematocrit 38.3 % (37.0-47.0); Hemoglobin 12.2 g/dL (11.5-15.3); Lymphocytes # 1.8 10^3/uL (0.8-4.8); Lymphocytes % 12.2 %; Mean Corpuscular HGB Conc 31.9 g/dL (30.0-36.0); Mean Corpuscular Hemoglobin 28.1 pg (28.0-34.0); Mean Corpuscular Volume 88.2 fL (81-99); Monocytes # 1.5 10^3/uL (0.2-0.9); Nucleated Red Blood Cells % 0 %; Platelet Count 383 10^3/cmm (130-400); Red Blood Count 4.34 10^6/uL (4.1-5.3); Red Cell Distribution Width 11.9 % (12.1-15.1); White Blood Count 14.6 10^3/uL (4.0-10.0)
[2020-06-04 18:34] LABS: Digoxin 1.5 ng/mL (0.6-1.2)
[2020-06-04] MEDS: sodium chloride 0.9% 1,000 ML 999 ML IV (18:40)
[2020-06-04 18:43] VITALS: BP 159/78; PULSE 72; O2SAT 97
[2020-06-04 18:45] LABS: Alanine Aminotransferase 12 U/L (0-33); Albumin Level 3.4 g/dL (3.5-5.2); Alkaline Phosphatase 92 IU/L (35-105); Aspartate Amino Transferase 22 U/L (0-32); Blood Urea Nitrogen 20 mg/dL (8-23); Calcium 8.8 mg/dL (8.5-10.5); Carbon Dioxide 27 mmol/L (22-29); Chloride 96 mmol/L (98-107); Creatinine Clr Calc Pharmacy 36.3499; Globulin 3.6 g/dL (1.3-4.6); Glucose 175 mg/dL (65-115); Magnesium 2.1 mg/dL (1.7-2.3); Osmolality Calculated 285 mOsm/kg (285-295); Sodium 134 mmol/L (136-145); Thyroid Stimulating Hormone 1.29 uIU/mL (0.27-4.20); Total Bilirubin 0.5 mg/dL (0.15-1.2)
[2020-06-04 18:50] LABS: Urine Appearance Clear (CLEAR); Urine Color Yellow (Yellow)
[2020-06-04 18:51] LABS: Add Urine Microscopic? YES; Bilirubin Urine Neg (Negative); Blood Urine 2+ (Negative); Glucose Urine UA Norm (Normal); Ketones Urine Negative (Negative); Leukocyte Esterase Urine Trace (Negative); Nitrate Urine Negative (Negative); Protein Urine 1+ (Negative); Urobilinogen Urine 1 mg/dL (Negative); pH Urine 5 (5-7)
[2020-06-04 19:01] LABS: Bacteria Urine 2+ /hpf; Mucus Urine 2+ /hpf
[2020-06-04 19:02] LABS: Add Urine Culture? No; Fine Granular Casts Urine 0-4 /lpf
[2020-06-04] MEDS: cefTRIAXone 1,000 MG in sodium chloride 0.9% (plus) 50 ML 100 MG IV (19:50)
[2020-06-04 20:32] VITALS: BP 150/77; PULSE 75; RESP 16; O2SAT 98
== END 2020-06-04 20:33 | disposition home or self-care (01) ==
PROVIDERS: Emergency Medicine; Emergency Provider Emergency Medicine; PCP Nurse Practitioner
DX: N30.00 Acute cystitis without hematuria (principal); R53.1 Weakness; Z79.82 Long term (current) use of aspirin; Z79.01 Long term (current) use of anticoagulants; I48.91 Unspecified atrial fibrillation; I11.0 Hypertensive heart disease with heart failure; I50.30 Unspecified diastolic (congestive) heart failure; Z86.73 Personal history of transient ischemic attack (TIA), and cerebral infarction without residual deficits; E78.5 Hyperlipidemia, unspecified; E11.40 Type 2 diabetes mellitus with diabetic neuropathy, unspecified; Z87.891 Personal history of nicotine dependence
CPT/HCPCS: 12345; 36415; 71045; 80053; 80162; 81001; 83735; 84443; 85025; 85610; 87086; 96360; 99283; J0696; J7030

== ENCOUNTER 2020-06-10 12:48 | Inpatient (IN) | payer MEDICARE, SELFPAY ==
[2020-06-10] VITALS (13 sets, daily range): BP systolic 137–175; BP diastolic 60–98; PULSE 70–74; RESP 14–21; TEMP 36.7–36.8; O2SAT 95–99; BMI 23.6
--- NOTE | 2020-06-10 13:09 | CTR_ITS ---
PROCEDURE INFORMATION: Exam: CT Abdomen And Pelvis With Contrast Exam date and time: 06/10/2020 2:58 PM Age: 74 years old Clinical indication: Prior surgery; Surgery date: 6+ months; Surgery type: Appy, gb, hernia, hyst, gastric; Patient HX: Profuse rectal bleeding w low h&h; Additional info: Gi bleed TECHNIQUE: Imaging protocol: Computed tomography of the abdomen and pelvis with intravenous contrast. Radiation optimization: All CT scans at this facility use at least one of these dose optimization techniques: automated exposure control; mA and/or kV adjustment per patient size (includes targeted exams where dose is matched to clinical indication); or iterative reconstruction. Contrast material: VISI 320; Contrast volume: 95 ml; Contrast route: INTRAVENOUS (IV); COMPARISON: CT abdomen pelvis w con* [id number] 01/06/2020 9:05 PM RADIATION DOSE METRICS: Total DLP (mGy-cm): 310.35 FINDINGS: Lungs: Interstitial prominence. Cardiomegaly. Pacemaker. Liver: No focal hepatic mass. Gallbladder and bile ducts: Status post cholecystectomy. Pancreas: No pancreatic mass or ductal dilatation. Spleen: No splenomegaly. Adrenals: Punctate right adrenal calcification. Subtle left adrenal nodularity. Kidneys and ureters: Mild dilatation of the right extrarenal pelvis, without significant ureteral dilatation. 1 mm nonobstructing calculus in the lower pole the left kidney. Poorly characterized 5 mm nodular hypodensity in the inferior medial left kidney. Stomach and bowel: Hiatal hernia. Mild gastric wall thickening. Mild small bowel dilatation without a focal transition zone. Diverticulosis and mild infiltration of pericolonic fat, consistent with low-grade diverticulitis. Prominent stool. Postoperative change in small bowel again demonstrated. Appendix: Appendix not visualized. Intraperitoneal space: No significant free fluid. Vasculature: Prominent vascular calcification. No abdominal aortic aneurysm. Lymph nodes: Subcentimeter lymph nodes. Urinary bladder: Normal bladder morphology. Reproductive: Status post hysterectomy. Bones/joints: Osteopenia. 6 mm bone island in the proximal right femur. Degenerative change and disc bulging. Mild scoliosis. Soft tissues: Infiltration of subcutaneous fat about the anterolateral aspect of the proximal right femoral diaphysis. CT/CT abdomen pelvis w con* [id number] IMPRESSION: 1. Hiatal hernia and mild gastric wall thickening. 2. Diverticulosis and mild infiltration of pericolonic fat, consistent with low-grade diverticulitis. 3. Additional findings as described above. Radiation Dose CTDIVOL = (mGy): DLP = 310.35 (mGy-cm)
--- NOTE | 2020-06-10 13:09 | XRR_ITS ---
PROCEDURE INFORMATION: Exam: XR Right Femur Exam date and time: 06/10/2020 1:12 PM Age: 74 years old Clinical indication: Injury or trauma; Fall; Initial encounter; Blunt trauma; Thigh or upper leg; Right TECHNIQUE: Imaging protocol: XR Right femur. Views: 2 views. COMPARISON: No relevant prior studies available. FINDINGS: Bones/joints: Right knee arthroplasty. No acute bony injury or malalignment in the visualized right femur. Osteopenia and degenerative change. Soft tissues: Unremarkable. Vasculature: Vascular calcification. XR/XR femur RT min 2V* [id number] IMPRESSION: No acute bony injury or malalignment in the visualized right femur.
[2020-06-10 13:30] LABS: Basophils # 0.1 10^3/uL (0.0-0.1); Basophils % 1.1 %; Eosinophils # 0.2 10^3/uL (0.0-0.8); Eosinophils % 2.5 %; Hematocrit 31.5 % (37.0-47.0); Hemoglobin 9.8 g/dL (11.5-15.3); Lymphocytes # 1.7 10^3/uL (0.8-4.8); Mean Corpuscular HGB Conc 31.1 g/dL (30.0-36.0); Mean Corpuscular Hemoglobin 27.9 pg (28.0-34.0); Mean Corpuscular Volume 89.7 fL (81-99); Mean Platelet Volume 9.9 fL (7.4-10.4); Monocytes # 0.7 10^3/uL (0.2-0.9); Monocytes % 9.2 %; Neutrophils # 4.62 10^3/uL (1.8-7.7); Neutrophils % 63.5 %; Nucleated Red Blood Cells % 0 %; Platelet Count 434 10^3/cmm (130-400); Red Blood Count 3.51 10^6/uL (4.1-5.3); Red Cell Distribution Width 12.2 % (12.1-15.1); White Blood Count 7.3 10^3/uL (4.0-10.0)
[2020-06-10] MEDS: phytonadione (ADULT) 10 mg/mL Ampule 1 mL IV (13:31)
[2020-06-10] MEDS: sodium chloride 0.9% 1,000 ML 999 ML IV (13:33)
[2020-06-10 13:43] LABS: INR 3.36 (0.8-1.2)
[2020-06-10 13:47] LABS: Alanine Aminotransferase 14 U/L (0-33); Albumin Level 3.1 g/dL (3.5-5.2); Alkaline Phosphatase 91 IU/L (35-105); Aspartate Amino Transferase 25 U/L (0-32); Blood Urea Nitrogen 12 mg/dL (8-23); Calcium 9.1 mg/dL (8.5-10.5); Carbon Dioxide 28 mmol/L (22-29); Chloride 104 mmol/L (98-107); Globulin 2.7 g/dL (1.3-4.6); Glucose 169 mg/dL (65-115); Osmolality Calculated 294 mOsm/kg (285-295); Sodium 140 mmol/L (136-145); Total Bilirubin 0.2 mg/dL (0.15-1.2); Total Protein 5.8 g/dL (6.6-8.7)
[2020-06-10] MEDS: iohexol 300 mg/mL 100 mL Btl IV (15:13)
[2020-06-10] MEDS: ciprofloxacin 400 MG/200 ML PREMIX 200 MG IV (18:07)
--- NOTE | 2020-06-10 18:34 | PM.HP ---
Providers/Chief Complaint Admitting Physician: Tomi Christianson MD Primary Care Provider: Mariajose Brice APN Chief Complaint: BLOODY STOOLS History of Present Illness Jessica Calvert is a 74 year old female with past medical history, chronic A. fib,(on Coumadin, digoxin) Alzheimer's dementia, hypertension, hypothyroidism, depression, heart failure with preserved ejection(HFpEF), CVA, obstructive sleep apnea. Came in after having bright red blood per since this morning.Currently she denies any dizziness any chest pain, shortness of breath, nausea vomiting diarrhea, constipation, urinary complaint. patient is on Coumadin for chronic A. fib. Upon arrival in the ER she was worked up for acute GI bleed. ER physician gave her 1 bag of FFP and [address] abdomen and pelvis was done in the ER: Which is suggestive of diverticulitis. Vitals and H&H: Is Currently stable. She is not a candidate for transfusion. Review of Systems General: Reports: 10 or more systems reviewed and unremarkable except in HPI and below Const: Denies: fever(s), chills, body aches, change in appetite or diaphoresis Card: Denies: palpitations, edema, swelling of feet/ankles, dyspnea on exertion, orthopnea or leg pain with exertion Resp: Denies: dyspnea, productive cough, wheezing or pain on inspiration GI: Denies: abdominal pain, nausea, vomiting, diarrhea or constipation : Denies: flank pain Musc: Denies: back pain, extremity pain or extremity swelling Neuro: Denies: headache(s), difficulty walking or confusion Medications/Allergies Home Medications Medication Instructions Recorded Confirmed Last Taken Type aspirin 81 mg tablet,delayed 81 mg PO DAILY 10/25/19 06/10/20 06/09/20 History release levothyroxine 50 mcg capsule 50 mcg PO DAILY 10/25/19 06/10/20 06/09/20 History magnesium oxide 400 mg PO DAILY 10/25/19 06/10/20 06/09/20 History multivitamin 1 tab PO DAILY 10/25/19 06/10/20 06/09/20 History omega-3 fatty acids 1,000 mg 1,000 mg PO DAILY 10/25/19 06/10/20 06/09/20 History capsule pravastatin 40 mg tablet 40 mg PO DAILY 10/25/19 06/10/20 06/09/20 History rivastigmine tartrate 3 mg capsule 3 mg PO BID #60 cap 01/20/20 06/10/20 06/09/20 Rx digoxin 125 mcg (0.125 mg) tablet 125 mcg PO DAILY #90 tab 02/21/20 06/10/20 06/09/20 Rx warfarin 2.5 mg tablet 2.5 mg PO DAILY #30 tab 02/21/20 06/10/20 06/09/20 Rx cephalexin [Keflex] 500 mg PO Q6H 7 Days #28 cap 06/04/20 06/10/20 06/09/20 Rx metformin 500 mg PO DAILY 06/10/20 06/10/20 06/10/20 History Allergies Allergy/AdvReac Type Severity Reaction Status Date / Time codeine Allergy Unknown Unknown Verified 02/28/20 12:55 PFSH Acute PFSH: Medical History Atrial fibrillation -rate controlled, VSS -telemetry monitoring -hold digoxin due to elevated levels; continue diltiazem -on AC with coumadin Depression Diabetes mellitus -has NIDDM type II -Accucheks, hypoglycemia precautions, ISS -can resume metformin as now 48 hrs since contrast given Diastolic heart failure -has known hx of chronic diastolic CHF, no acute exacerbation -Echo (03/2018): EF=55%, mild pulmonary HTN, trace MR, trace AR, moderate TR Fibromyalgia History of CVA (cerebrovascular accident) Hyperlipidemia Hypertension -VSS; continue to monitor -continue oral antihypertensives Hypothyroidism -has hx of hypothyroidism -continue levothyroxine Neuropathy Sleep apnea unclear if cpap machine working Surgical History S/P appendectomy S/P cardiac pacemaker procedure S/P carpal tunnel release S/P cholecystectomy S/P gastric surgery S/P hernia repair S/P hysterectomy S/P knee replacement Family History Father Stroke Mother Diabetes Hypertension CAD (coronary artery disease) Social History Smoking and tobacco status: former smoker Quit status (tobacco): has quit using tobacco Year quit tobacco: 1986 Alcohol intake: never History of recent travel: No Vitals/I&O/Wt Last Vital Signs Temp 98.3 F 06/10/20 15:27 Pulse 70 06/10/20 18:22 Resp 17 06/10/20 18:22 BP 149/72 06/10/20 18:22 Pulse Ox 96 06/10/20 18:22 06/10/20 06/10/20 06/10/20 06:59 14:59 22:59 Intake Total 0 / 0 Balance 0 / 0 Weight last 48 hrs Weight 58.513 kg Physical Exam Narrative: EXAM NARRATIVE: Currently AO*3. 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 HENMT: COMMON NORMALS: normocephalic, atraumatic, hearing grossly normal bilaterally and external ears normal HEAD & SCALP: normocephalic and atraumatic EXTERNAL EAR: Yes external ears normal Eye: COMMON NORMALS: no scleral icterus GENERAL EYE: appearance normal, both eyes and all related structures Chest: COMMONS NORMALS: normal inspection of the chest and normal palpation of entire chest wall CHEST: Yes Symmetrical chest wall rise Resp: COMMON NORMALS: normal respiratory effort, No retractions, No use of accessory muscles and clear to auscultation bilaterally EFFORT & INSPECTION: Yes symmetric chest movement AUSCULTATION: clear to auscultation bilaterally Cardio: COMMON NORMALS: regular rate, regular rhythm, S1 normal heart sound present, S2 normal heart sound present, No gallops present (Cardio), No murmurs present (Cardio), No rub (Cardio) and Peripheral pulses 2+ throughout RATE: regular rate RHYTHM: regular rhythm HEART SOUNDS: S1 normal heart sound present and S2 normal heart sound present PERIPHERAL PULSES: Peripheral pulses 2+ throughout GI: COMMON NORMALS: Normal to inspection, nondistended, normoactive bowel sounds present, No hepatosplenomegaly present and no masses AUSCULTATION: Yes normoactive bowel sounds PALPATION: Yes Soft to palpation, Yes No hepatosplenomegaly present and Yes Other GI palpation findings present (Left lower quadrant tenderness present, no guarding no rigidity, no rebound) RECTAL EXAM: deferred Extremity: COMMON NORMALS: no clubbing, cyanosis or edema and no pedal edema Neuro: COMMON NORMALS: patient oriented x3 Data : 06/10/20 13:23 06/10/20 13:23 CT Abd/Pel: I personally reviewed and interpreted this imaging study as follows: My impression: Pericolic fat infiltrate consistent with diverticulitis. Radiologist's impression: 1. Hiatal hernia and mild gastric wall thickening. 2. Diverticulosis and mild infiltration of pericolonic fat, consistent with low-grade diverticulitis CXR: I personally reviewed and interpreted this imaging study as follows: My impression: Right femur no acute fracture. Radiologist's impression: Bones/joints: Right knee arthroplasty. No acute bony injury or malalignment in the visualized right femur. Osteopenia and degenerative change. Soft tissues: Unremarkable. Vasculature: Vascular calcification. A&P Assessment and plan (1) GI bleed: Came in after having bright red blood per since this morning.Currently she denies any dizziness any chest pain, shortness of breath, nausea vomiting diarrhea, constipation, urinary complaint. patient is on Coumadin for chronic A. fib. Upon arrival in the ER she was worked up for acute GI bleed. ER physician gave her 1 bag of FFP and [address] of [address] K. CT abdomen and pelvis was done in the ER: Which is suggestive of diverticulitis. Vitals and H&H: Is Currently stable. She is not a candidate for transfusion. Likely cause of GI bleed is supratherapeutic INR. We will continue to monitor H&H: And transfuse as needed. Status: Acute (2) Diverticulitis: CT abdomen and pelvis was done in the ER: Which is suggestive of diverticulitis. She has left lower quadrant tenderness. Currently n.p.o.. Continue Metro and Cipro. Status: Acute (3) Supratherapeutic INR: 1 bag of FFP and 10 mg of vitamin K given in the ER. Current INR is 3.06. We will continue to hold warfarin. Continue to monitor INR. Status: Acute (4) Anemia: Normocytic anemia due to chronic blood loss. Currently H&H is stable.No need for blood transfusion. Continue to hold anticoagulation.Continue to monitor CBC. Status: Acute (5) Atrial fibrillation: -Currently rate controlled -telemetry monitoring -Continue digoxin digoxin -AC with coumadin on hold due to supratherapeutic INR Status: Chronic Qualifiers: Atrial fibrillation type: unspecified chronic Qualified Code(s): I48.20 - Chronic atrial fibrillation, unspecified (6) Diastolic heart failure: Currently compensated. -has known hx of chronic diastolic CHF, no acute exacerbation -Echo (03/2018): EF=55%, mild pulmonary HTN, trace MR, trace AR, moderate TR Status: Chronic Qualifiers: Heart failure chronicity: chronic Qualified Code(s): I50.32 - Chronic diastolic (congestive) heart failure (7) Diabetes mellitus: -has NIDDM type II -Accucheks, hypoglycemia precautions, ISS Status: Chronic Qualifiers: Diabetes mellitus type: type 2 Diabetes mellitus long term care social worker insulin use: without long term care social worker use Diabetes mellitus complication status: without complication Qualified Code(s): E11.9 - Type 2 diabetes mellitus without complications (8) Hypertension: -VSS; continue to monitor -We will initiate oral hypertensive medication Status: Chronic Qualifiers: Hypertension type: essential hypertension Qualified Code(s): I10 - Essential (primary) hypertension (9) Alzheimer disease: exelon 4.5 bid started 12/2019 Status: Chronic Qualifiers: Alzheimer's disease onset: late-onset Dementia behavioral disturbance: without behavioral disturbance Qualified Code(s): G30.1 - Alzheimer's disease with late onset; F02.80 - Dementia in other diseases classified elsewhere without behavioral disturbance (10) Hyperlipidemia: Continue pravastatin 40 mg oral daily. Status: Chronic Qualifiers: Hyperlipidemia type: unspecified Qualified Code(s): E78.5 - Hyperlipidemia, unspecified Attestations Medical Necessity Statement*: Patient needs to be in hospital for management of GI. Coding Level of Care Code Acute Environmental Health Safety Engineer for [facility] Fwd Diagnoses GI bleed K92.2 Diverticulitis K57.92 Supratherapeutic INR R79.1 Anemia D64.9 Atrial fibrillation I48.20 Atrial fibrillation type: unspecified chronic Diastolic heart failure I50.32 Heart failure chronicity: chronic Diabetes mellitus E11.9 Diabetes mellitus type: type 2 Diabetes mellitus long term care social worker insulin use: without long term care social worker use Diabetes mellitus complication status: without complication Hypertension I10 Hypertension type: essential hypertension Alzheimer disease G30.1; F02.80 Alzheimer's disease onset: late-onset Dementia behavioral disturbance: without behavioral disturbance Hyperlipidemia E78.5 Hyperlipidemia type: unspecified
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
[2020-06-10 20:09] LABS: Glucose Point of Care 123 mg/dL (70-110)
[2020-06-10] MEDS: metroNIDAZOLE IV 500 MG/100 ML PREMIX 100 MG IV (20:39)
--- NOTE | 2020-06-10 20:41 | PC.NURSE ---
Patient resting in bed watching tv. Denies pain or needs at this time.
[2020-06-11] VITALS (14 sets, daily range): BP systolic 119–164; BP diastolic 58–78; PULSE 58–76; RESP 12–23; TEMP 36.8–37.1; O2SAT 95–99
[2020-06-11] MEDS: ciprofloxacin 400 MG/200 ML PREMIX 200 MG IV ×2 (02:10→11:15)
[2020-06-11] MEDS: metroNIDAZOLE IV 500 MG/100 ML PREMIX 100 MG IV (03:10)
[2020-06-11 04:09] LABS: Basophils # 0.1 10^3/uL (0.0-0.1); Eosinophils # 0.3 10^3/uL (0.0-0.8); Eosinophils % 3.5 %; Hematocrit 23.7 % (37.0-47.0); Hemoglobin 7.4 g/dL (11.5-15.3); Lymphocytes # 2.3 10^3/uL (0.8-4.8); Lymphocytes % 31.8 %; Mean Corpuscular HGB Conc 31.2 g/dL (30.0-36.0); Mean Corpuscular Hemoglobin 27.7 pg (28.0-34.0); Mean Corpuscular Volume 88.8 fL (81-99); Mean Platelet Volume 10.6 fL (7.4-10.4); Monocytes # 0.7 10^3/uL (0.2-0.9); Monocytes % 9.2 %; Neutrophils # 3.87 10^3/uL (1.8-7.7); Neutrophils % 53.7 %; Nucleated Red Blood Cells % 0 %; Platelet Count 353 10^3/cmm (130-400); Red Blood Count 2.67 10^6/uL (4.1-5.3); Red Cell Distribution Width 12.2 % (12.1-15.1); White Blood Count 7.2 10^3/uL (4.0-10.0)
[2020-06-11 04:36] LABS: Alanine Aminotransferase 11 U/L (0-33); Albumin Level 2.9 g/dL (3.5-5.2); Alkaline Phosphatase 81 IU/L (35-105); Anion Gap 9.1 (5-19); Aspartate Amino Transferase 24 U/L (0-32); Blood Urea Nitrogen 11 mg/dL (8-23); Calcium 8.6 mg/dL (8.5-10.5); Carbon Dioxide 28 mmol/L (22-29); Chloride 105 mmol/L (98-107); Globulin 2.4 g/dL (1.3-4.6); Glucose 113 mg/dL (65-115); Osmolality Calculated 286 mOsm/kg (285-295); Potassium 4.1 mmol/L (3.5-5.1); Sodium 138 mmol/L (136-145); Total Bilirubin 0.3 mg/dL (0.15-1.2); Total Protein 5.3 g/dL (6.6-8.7)
--- NOTE | 2020-06-11 05:31 | PC.NURSE ---
Patient resting with eyes closed. Observed patient grimacing with pain however when asked patient denies need for pain control. Patient has had no urine output this shift since admission to the floor. Assessed patient's need for toileting and patient denies. Patient is NPO at present.
[2020-06-11 06:27] LABS: Glucose Point of Care 117 mg/dL (70-110)
--- NOTE | 2020-06-11 08:18 | PC.NURSE ---
Pt rounding Pt is alert, awake, oriented. Denies any pain on her abdomen. Denies any diarrhea or bloody stools. Pt reported last BM was yesterday. Call light within reach.
[2020-06-11] MEDS: levothyroxine 50 mcg Tablet PO (09:15)
[2020-06-11] MEDS: aspirin 81 mg EC Tablet PO (09:15)
[2020-06-11] MEDS: atorvastatin 40 mg Tablet 20 MG PO (09:15)
[2020-06-11] MEDS: multivitamin therapeutic Tablet 1 TAB PO (09:16)
[2020-06-11] MEDS: digoxin 125 mcg Tablet PO (09:16)
[2020-06-11] MEDS: pantoprazole 40 mg SDV IVP (09:16)
--- NOTE | 2020-06-11 11:00 | PC.NURSE ---
New IV insertion on Left FA #18 G for blood transfusion.
[2020-06-11 11:10] LABS: Glucose Point of Care 218 mg/dL (70-110)
--- NOTE | 2020-06-11 12:11 | PC.NURSE ---
IV inflitration Pt IV on right AC started to ifiltrate. redness and swelling noted on right elbow. Ciprofloxacin IVF stopped. IV catheter removed. Applied pressure and ice pack on right forearm. Doctor notified if we can change pt to oral antiobiotics.
--- NOTE | 2020-06-11 12:40 | PC.NURSE ---
Physician notification Pt IV on right AC started to get infiltrated during IV ciprofloxacin infusion. Redness, swelling and pain at site noted. Discuss to doctor if we can switch it to oral antibiotics. Received Verbal orders read back okay to switch oral. Notified pharmacist Juancarlos to convert pt on same dose oral antibiotics per order. Check on pharmacist and Pharmacist Juancarlos verified them.Appreciate his help.
[2020-06-11] MEDS: metroNIDAZOLE 500 MG Tablet PO ×2 (13:24→21:46)
[2020-06-11 16:13] LABS: Glucose Point of Care 122 mg/dL (70-110)
--- NOTE | 2020-06-11 16:59 | PM.PN ---
Subjective Subjective: Interval history: Patient was lying comfortably in the bed.She denies any abdominal pain nausea vomitting, no bright red blood per rectum. Her hemoglobin has dropped to 7.4 plan is to transfuse her 1 unit. She is willing to start diet. We have started her on clear liquid. Vitals and labs have been reviewed. Vitals/I&O/Wt Last Vital Signs Temp 98.7 F 06/11/20 15:00 Pulse 73 06/11/20 15:00 Resp 17 06/11/20 15:00 BP 134/76 06/11/20 15:00 Pulse Ox 95 06/11/20 13:25 06/11/20 06/11/20 06/11/20 06:59 14:59 22:59 Intake Total 300 / 276.053 4799 / 1147 Balance 300 / 361.716 8154 / 1147 Weight last 48 hrs Weight 58.695 kg Weight 58.513 kg Physical Exam Narrative: EXAM NARRATIVE: Currently AO*3. 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 Const: COMMON NORMALS: patient oriented x3 HENMT: COMMON NORMALS: normocephalic, atraumatic and external ears normal HEAD & SCALP: normocephalic and atraumatic EXTERNAL EAR: Yes external ears normal Eye: COMMON NORMALS: no scleral icterus GENERAL EYE: appearance normal, both eyes and all related structures Chest: COMMONS NORMALS: normal inspection of the chest and normal palpation of entire chest wall CHEST: Yes Symmetrical chest wall rise Resp: COMMON NORMALS: normal respiratory effort, No retractions, No use of accessory muscles and clear to auscultation bilaterally EFFORT & INSPECTION: Yes symmetric chest movement AUSCULTATION: clear to auscultation bilaterally Cardio: COMMON NORMALS: regular rate, regular rhythm, S1 normal heart sound present, S2 normal heart sound present, No gallops present (Cardio), No murmurs present (Cardio), No rub (Cardio) and Peripheral pulses 2+ throughout RATE: regular rate RHYTHM: regular rhythm HEART SOUNDS: S1 normal heart sound present and S2 normal heart sound present PERIPHERAL PULSES: Peripheral pulses 2+ throughout GI: COMMON NORMALS: Normal to inspection, nondistended, normoactive bowel sounds present, Soft to palpation, non-tender, No hepatosplenomegaly present and no masses AUSCULTATION: Yes normoactive bowel sounds PALPATION: Yes Soft to palpation and Yes No hepatosplenomegaly present RECTAL EXAM: deferred Extremity: COMMON NORMALS: no clubbing, cyanosis or edema and no pedal edema Neuro: COMMON NORMALS: patient oriented x3 Data : 06/11/20 03:52 06/11/20 03:52 A&P Assessment and plan (1) GI bleed: Came in after having bright red blood per since this morning.Currently she denies any dizziness any chest pain, shortness of breath, nausea vomiting diarrhea, constipation, urinary complaint. patient is on Coumadin for chronic A. fib. Upon arrival in the ER she was worked up for acute GI bleed. ER physician gave her 1 bag of FFP and 10 mg of vitamin K. CT abdomen and pelvis was done in the ER: Which is suggestive of diverticulitis. Likely cause of GI bleed is supratherapeutic INR. Patient was lying comfortably in the bed.She denies any abdominal pain nausea vomitting, no bright red blood per rectum. Her hemoglobin has dropped to 7.4 plan is to transfuse her 1 unit We will continue to monitor H&H: And transfuse as needed. Status: Acute (2) Diverticulitis: CT abdomen and pelvis was done in the ER: Which is suggestive of diverticulitis. She has left lower quadrant tenderness. Currently n.p.o.. Continue Metro and Cipro. Status: Acute (3) Supratherapeutic INR: 1 bag of FFP and 10 mg of vitamin K given in the ER. Current INR is 1.3. We will continue to hold warfarin as H/H is dropping. Continue to monitor INR. Status: Acute (4) Anemia: Normocytic anemia due to chronic blood loss. Currently H&H is stable.No need for blood transfusion. Continue to hold anticoagulation.Continue to monitor CBC. Status: Acute (5) Atrial fibrillation: -Currently rate controlled -telemetry monitoring -Continue digoxin digoxin -AC with coumadin on hold Status: Chronic Qualifiers: Atrial fibrillation type: unspecified chronic Qualified Code(s): I48.20 - Chronic atrial fibrillation, unspecified (6) Diastolic heart failure: Currently compensated. -has known hx of chronic diastolic CHF, no acute exacerbation -Echo (03/2018): EF=55%, mild pulmonary HTN, trace MR, trace AR, moderate TR Status: Chronic Qualifiers: Heart failure chronicity: chronic Qualified Code(s): I50.32 - Chronic diastolic (congestive) heart failure (7) Diabetes mellitus: -has NIDDM type II -Accucheks, hypoglycemia precautions, ISS Status: Chronic Qualifiers: Diabetes mellitus complication status: without complication Diabetes mellitus detention insulin use: without detention use Diabetes mellitus type: type 2 Qualified Code(s): E11.9 - Type 2 diabetes mellitus without complications (8) Hypertension: -VSS; continue to monitor -We will initiate oral hypertensive medication Status: Chronic Qualifiers: Hypertension type: essential hypertension Qualified Code(s): I10 - Essential (primary) hypertension (9) Alzheimer disease: exelon 4.5 bid started 12/2019 Status: Chronic Qualifiers: Alzheimer's disease onset: late-onset Dementia behavioral disturbance: without behavioral disturbance Qualified Code(s): G30.1 - Alzheimer's disease with late onset; F02.80 - Dementia in other diseases classified elsewhere without behavioral disturbance (10) Hyperlipidemia: Continue pravastatin 40 mg oral daily. Status: Chronic Qualifiers: Hyperlipidemia type: unspecified Qualified Code(s): E78.5 - Hyperlipidemia, unspecified Attestations Medical Necessity Statement*: Patient needs to be in hospital for management of anemia due to blood loss. Coding Level of Care Code Acute Credit Relationship Manager for [facility] Fwd Exam Comprehensive Diagnoses GI bleed K92.2 Diverticulitis K57.92 Supratherapeutic INR R79.1 Anemia D64.9 Atrial fibrillation I48.20 Atrial fibrillation type: unspecified chronic Diastolic heart failure I50.32 Heart failure chronicity: chronic Diabetes mellitus E11.9 Diabetes mellitus complication status: without complication Diabetes mellitus roasterman insulin use: without roasterman use Diabetes mellitus type: type 2 Hypertension I10 Hypertension type: essential hypertension Alzheimer disease G30.1; F02.80 Alzheimer's disease onset: late-onset Dementia behavioral disturbance: without behavioral disturbance Hyperlipidemia E78.5 Hyperlipidemia type: unspecified
--- NOTE | 2020-06-11 17:00 | PC.NURSE ---
Decrease swelling on right forearm After cold compress and elevation on right forearm from IV infiltration, pt swelling and redness has decreased and more soft to the touch. Denies pain to site now. Reinforced elevation of arm to pt. Pt verbalizes understanding and teach back.
[2020-06-11 21:02] LABS: Glucose Point of Care 130 mg/dL (70-110)
[2020-06-11] MEDS: ciprofloxacin 500 mg Tablet PO (21:45)
--- NOTE | 2020-06-11 23:42 | PC.NURSE ---
ASSUMED CARE AT SHIFT CHANGE. REPORT RECEIVED FROM OFF GOING NURSE. PT IS RESTING IN BED AND DENIES PAIN AT THIS TIME. WILL CONTINUE TO MONITOR.
[2020-06-12 04:00] VITALS: BP 157/80; PULSE 70; RESP 18; TEMP 36.9; O2SAT 96
[2020-06-12] MEDS: metroNIDAZOLE 500 MG Tablet PO ×3 (05:15→21:00)
[2020-06-12 05:27] LABS: Basophils # 0.1 10^3/uL (0.0-0.1); Basophils % 0.8 %; Eosinophils # 0.3 10^3/uL (0.0-0.8); Eosinophils % 2.8 %; Hematocrit 31.1 % (37.0-47.0); Hemoglobin 9.9 g/dL (11.5-15.3); Lymphocytes # 2.2 10^3/uL (0.8-4.8); Lymphocytes % 24.4 %; Mean Corpuscular HGB Conc 31.8 g/dL (30.0-36.0); Mean Corpuscular Volume 87.9 fL (81-99); Mean Platelet Volume 10.9 fL (7.4-10.4); Monocytes # 0.8 10^3/uL (0.2-0.9); Monocytes % 8.5 %; Neutrophils # 5.61 10^3/uL (1.8-7.7); Neutrophils % 63.2 %; Nucleated Red Blood Cells % 0 %; Platelet Count 361 10^3/cmm (130-400); Red Blood Count 3.54 10^6/uL (4.1-5.3); Red Cell Distribution Width 12.3 % (12.1-15.1); White Blood Count 8.9 10^3/uL (4.0-10.0)
[2020-06-12 05:57] LABS: Alanine Aminotransferase 12 U/L (0-33); Albumin Level 3.2 g/dL (3.5-5.2); Alkaline Phosphatase 83 IU/L (35-105); Anion Gap 12.3 (5-19); Aspartate Amino Transferase 26 U/L (0-32); Blood Urea Nitrogen 11 mg/dL (8-23); Calcium 9.3 mg/dL (8.5-10.5); Carbon Dioxide 29 mmol/L (22-29); Chloride 103 mmol/L (98-107); Globulin 2.5 g/dL (1.3-4.6); Glucose 115 mg/dL (65-115); Osmolality Calculated 290 mOsm/kg (285-295); Potassium 4.3 mmol/L (3.5-5.1); Sodium 140 mmol/L (136-145); Total Bilirubin 0.6 mg/dL (0.15-1.2); Total Protein 5.7 g/dL (6.6-8.7)
--- NOTE | 2020-06-12 06:15 | PC.NURSE ---
PT SLEEP WAS INTERRUPTED FREQUENTLY FROM 111-1. PT HAS GOTTEN UP SEVERAL TIMES. PT DENIES PAIN. WILL GIVE REPORT TO ON COMING NURSE.
[2020-06-12 06:31] LABS: Glucose Point of Care 136 mg/dL (70-110)
[2020-06-12 08:00] VITALS: BP 123/57; PULSE 70; RESP 16; O2SAT 99
[2020-06-12 08:28] VITALS: PULSE 74
[2020-06-12] MEDS: levothyroxine 50 mcg Tablet PO (08:28)
[2020-06-12] MEDS: atorvastatin 40 mg Tablet 20 MG PO (08:28)
[2020-06-12] MEDS: digoxin 125 mcg Tablet PO (08:28)
[2020-06-12] MEDS: aspirin 81 mg EC Tablet PO (08:28)
[2020-06-12] MEDS: multivitamin therapeutic Tablet 1 TAB PO (08:28)
--- NOTE | 2020-06-12 10:00 | PC.NURSE ---
PT IV catheter was half out Noted pt IV was out from her vein. #18 G cath tip is removed. Cath tip intact. Applied pressure to site. 1000- Heart to heart rounding-Notified Dr. Taylor of pt not having any IV catheter. If we can change her IVP Protonix to oral. Received verbal order read back to change it to PO 40 mg Protonix twice a day.
[2020-06-12] MEDS: pantoprazole DR 40 mg Tablet PO ×2 (11:05→17:43)
[2020-06-12] MEDS: ciprofloxacin 500 mg Tablet PO ×2 (11:05→21:00)
--- NOTE | 2020-06-12 11:06 | P.PN_ITS ---
Subjective Subjective: Interval history: Jessica reports she is doing okay. Denies any abdominal discomfort. History and physical, and progress notes reviewed. Denies any blood in her stool this morning. Medications: Reviewed: Yes Vitals/I&O/Wt Last Vital Signs Temp 98.4 F 06/12/20 04:00 Pulse 74 06/12/20 08:28 Resp 16 06/12/20 08:00 BP 123/57 06/12/20 08:00 Pulse Ox 99 06/12/20 08:00 06/11/20 06/12/20 06/12/20 22:59 06:59 14:59 Intake Total 358 / 1505 400 / 1905 Output Total 800 / 800 Balance 358 / 1505 -400 / 1105 Weight last 48 hrs Weight 58.695 kg Weight 58.513 kg Physical Exam Narrative: EXAM NARRATIVE: General exam no apparent distress Cardiovascular irregular, irregular rhythm Lungs clear Abdomen is soft with positive bowel sounds Extremities no cyanosis clubbing or edema Data : 06/12/20 04:21 06/12/20 04:21 A&P Assessment and plan (1) GI bleed: CT scan suggests diverticulitis Currently denies any abdominal pain Was on Coumadin for atrial fibrillation, which is currently being held secondary to GI bleeding. INR was 3.36 at that time. Received FFP, vitamin K in the emergency department She was transfused 1 unit of packed red blood cells with good response in her hemoglobin Status: Acute (2) Diverticulitis: Continue Cipro and Flagyl Continue full liquid diet Probable discharge tomorrow if continues to improve Consider colonoscopy, 4 to 6 weeks Status: Acute (3) Supratherapeutic INR: Coumadin discontinued secondary to bleeding. Could consider restart of Coumadin in the future Status: Acute (4) Anemia: Appears stable after transfusion 1 unit packed red blood cells Status: Acute (5) Atrial fibrillation: Rate controlled, currently on digoxin Status: Chronic Qualifiers: Atrial fibrillation type: unspecified chronic Qualified Code(s): I48.20 - Chronic atrial fibrillation, unspecified (6) Diastolic heart failure: Compensated currently -Echo (03/2018): EF=55%, mild pulmonary HTN, trace MR, trace AR, moderate TR Status: Chronic Qualifiers: Heart failure chronicity: chronic Qualified Code(s): I50.32 - Chronic diastolic (congestive) heart failure (7) Diabetes mellitus: Blood sugars currently stable without any significant treatment Status: Chronic Qualifiers: Diabetes mellitus type: type 2 Diabetes mellitus fci insulin use: without fci use Diabetes mellitus complication status: without complication Qualified Code(s): E11.9 - Type 2 diabetes mellitus without complications (8) Hypertension: Controlled currently Status: Chronic Qualifiers: Hypertension type: essential hypertension Qualified Code(s): I10 - Essential (primary) hypertension (9) Alzheimer disease: Status: Chronic Qualifiers: Alzheimer's disease onset: late-onset Dementia behavioral disturbance: without behavioral disturbance Qualified Code(s): G30.1 - Alzheimer's disease with late onset; F02.80 - Dementia in other diseases classified elsewhere without behavioral disturbance (10) Hyperlipidemia: Continue statin Status: Chronic Qualifiers: Hyperlipidemia type: unspecified Qualified Code(s): E78.5 - Hyperlipidemia, unspecified Attestations Medical Necessity Statement*: Needs continued hospital stay, for close follow- up secondary to GI bleeding requiring transfusion Coding Level of Care Code Acute Scallop Dredger for [facility] Fwd Diagnoses GI bleed K92.2 Diverticulitis K57.92 Supratherapeutic INR R79.1 Anemia D64.9 Atrial fibrillation I48.20 Atrial fibrillation type: unspecified chronic Diastolic heart failure I50.32 Heart failure chronicity: chronic Diabetes mellitus E11.9 Diabetes mellitus type: type 2 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
[2020-06-12] MEDS: acetaminophen 325 mg Tablet 650 MG PO (11:32)
[2020-06-12 11:41] LABS: Glucose Point of Care 215 mg/dL (70-110)
--- NOTE | 2020-06-12 11:49 | PC.NURSE ---
Assisted pt back to bed from [facility] [place] and noted pink red blood in her wipes Asked pt if she has any pain or discomfort in abdomen or in urination, pt denies any pain or discomfort. Askedpt if she wipe it from from front or rear, she said it is from her rear. Reposition pt to side and noted bright red blood around her rectal area. Jovita cares provided, check for any external hemorrhoid,no noticeable blood around. Instructed pt to tell nurse if she started to have more blood in her commode. Pt stated, she did not have any BM for [address] Taylor regarding the noted bright red blood in rectum.
[2020-06-12 12:00] VITALS: BP 142/78; PULSE 70; RESP 19; TEMP 36.4; O2SAT 98
[2020-06-12 14:01] LABS: Hematocrit 30.7 % (37.0-47.0); Hemoglobin 9.6 g/dL (11.5-15.3)
[2020-06-12 14:12] LABS: INR 1.17 (0.8-1.2)
[2020-06-12 15:46] LABS: Glucose Point of Care 72 mg/dL (70-110)
[2020-06-12 16:00] VITALS: BP 124/60; PULSE 70; RESP 16; TEMP 37; O2SAT 97
[2020-06-12 20:00] VITALS: BP 156/76; PULSE 74; RESP 13; TEMP 36.3; O2SAT 98
--- NOTE | 2020-06-12 20:00 | PC.NURSE ---
Dr. Rose notified of patient of 2 small BMs that were Brown with red flecs in it and that patient had wiped and the toilet paper had blood on it. Updated her on labs and admitting diagnosis. Patient denies any abdomen pain at this time.
[2020-06-12 20:27] LABS: Glucose Point of Care 262 mg/dL (70-110)
[2020-06-13] VITALS: BP 140/71; PULSE 71; RESP 16; TEMP 36.8; O2SAT 96
[2020-06-13 04:00] VITALS: BP 130/68; PULSE 73; RESP 14; TEMP 36.7; O2SAT 96
[2020-06-13 05:05] LABS: Basophils # 0.1 10^3/uL (0.0-0.1); Basophils % 0.6 %; Eosinophils # 0.2 10^3/uL (0.0-0.8); Eosinophils % 2.6 %; Hematocrit 31.6 % (37.0-47.0); Lymphocytes # 2.1 10^3/uL (0.8-4.8); Lymphocytes % 24.7 %; Mean Corpuscular HGB Conc 31.6 g/dL (30.0-36.0); Mean Corpuscular Hemoglobin 28.1 pg (28.0-34.0); Mean Corpuscular Volume 88.8 fL (81-99); Monocytes # 0.8 10^3/uL (0.2-0.9); Monocytes % 9.1 %; Neutrophils # 5.26 10^3/uL (1.8-7.7); Neutrophils % 62.8 %; Nucleated Red Blood Cells % 0 %; Platelet Count 379 10^3/cmm (130-400); Red Blood Count 3.56 10^6/uL (4.1-5.3); Red Cell Distribution Width 12.5 % (12.1-15.1); White Blood Count 8.4 10^3/uL (4.0-10.0)
--- NOTE | 2020-06-13 05:05 | PC.NURSE ---
End of shift: Patient has had no BMs since earlier this shift. Patient has had no complaints of abdominal pain. Patient has rested well this shift. Patient remains alert and cooperative with care.
[2020-06-13] MEDS: metroNIDAZOLE 500 MG Tablet PO (05:26)
[2020-06-13 05:30] LABS: Alanine Aminotransferase 13 U/L (0-33); Albumin Level 3.1 g/dL (3.5-5.2); Alkaline Phosphatase 83 IU/L (35-105); Aspartate Amino Transferase 35 U/L (0-32); Blood Urea Nitrogen 14 mg/dL (8-23); Calcium 9.1 mg/dL (8.5-10.5); Carbon Dioxide 29 mmol/L (22-29); Chloride 103 mmol/L (98-107); Globulin 2.5 g/dL (1.3-4.6); Glucose 131 mg/dL (65-115); Osmolality Calculated 296 mOsm/kg (285-295); Sodium 142 mmol/L (136-145); Total Bilirubin 0.5 mg/dL (0.15-1.2); Total Protein 5.6 g/dL (6.6-8.7)
[2020-06-13 06:45] LABS: Glucose Point of Care 150 mg/dL (70-110)
[2020-06-13 07:00] VITALS: BP 130/68; PULSE 73; RESP 13; O2SAT 97
[2020-06-13 08:00] VITALS: BP 135/72; PULSE 73; RESP 16; TEMP 35.7; O2SAT 97
[2020-06-13 08:42] VITALS: PULSE 70
[2020-06-13] MEDS: pantoprazole DR 40 mg Tablet PO (08:42)
[2020-06-13] MEDS: ciprofloxacin 500 mg Tablet PO (08:42)
[2020-06-13] MEDS: aspirin 81 mg EC Tablet PO (08:42)
[2020-06-13] MEDS: digoxin 125 mcg Tablet PO (08:42)
[2020-06-13] MEDS: multivitamin therapeutic Tablet 1 TAB PO (08:42)
[2020-06-13] MEDS: atorvastatin 40 mg Tablet 20 MG PO (08:42)
[2020-06-13] MEDS: levothyroxine 50 mcg Tablet PO (08:43)
--- NOTE | 2020-06-13 10:39 | P.DS_ITS ---
Discharge Providers Date of Admission: 06/10/20 17:35 Date of Discharge: June 13, 2020 Attending Provider at Admission: Tomi Christianson MD Attending Provider at Discharge: Enrico Taylor MD Primary Care Provider: Mariajose Brice APN Diagnoses at Discharge Discharge Diagnosis (1) GI bleed: Status: Acute Problem details: Diverticulitis suggested on CT scan. 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 use: without correction use Diabetes mellitus complication status: without complication Qualified Code(s): E11.9 - Type 2 diabetes mellitus without complications (8) Hypertension: Status: Chronic Qualifiers: Hypertension type: essential hypertension Qualified Code(s): I10 - Essential (primary) hypertension (9) Alzheimer disease: Status: Chronic Qualifiers: Alzheimer's disease onset: late-onset Dementia behavioral disturbance: without behavioral disturbance Qualified Code(s): G30.1 - Alzheimer's disease with late onset; F02.80 - Dementia in other diseases classified elsewhere without behavioral disturbance (10) Hyperlipidemia: Status: Chronic Qualifiers: Hyperlipidemia type: unspecified Qualified Code(s): E78.5 - Hyperlipidemia, unspecified Reason for Visit Reason for Visit: BLOODY STOOLS Hospital Course Hospital Course: Jessica is a 74-year-old white female who presented to the hospital with blood in stool. CT scan suggested diverticulitis. She was placed on antibiotics consisting of Cipro and Flagyl. INR was slightly above 3, and she was given FFP and vitamin K. Hemoglobin drifted down to 7.4, and secondary to concern of active bleeding she was transfused 1 unit of packed red blood cells. Following this, she stabilized. No significant further bleeding occurred. At time of discharge her hemoglobin was 10, INR 1.1 the day previous, and she had no significant bleeding. Vital signs were stable. It was thought she could go home to finish her course of antibiotics for diverticulitis. Consider reinitiation of low-dose aspirin following this. CBC on follow-up. Colonoscopy 4 to 6 weeks, for follow-up of GI bleeding. Depending upon results of this Coumadin could be considered to restart. I discussed risks and benefits of discontinuing Coumadin currently with family, stroke risk versus recurrent GI bleeding. They elected to discontinue Coumadin currently until further evaluation can occur. Physical Exam Narrative: EXAM NARRATIVE: General exam no apparent distress Cardiovascular regular in rhythm without murmur Lungs clear Abdomen is soft with positive bowel sounds. No tenderness. Extremities no cyanosis clubbing or edema Discharge Data Data Completed and Pending: Completed Studies During Hospitalization Category Date Time Status CT abdomen pelvis w con* [id number] Urge nt Cat Scan 06/10/20 13:09 Completed XR femur RT min 2 V* [id number] Stat Exams 06/10/20 13:09 Completed Pending at discharge Category Date Time Status Complete Crossmat ch Routine Lab 06/10/20 13:23 Results Frozen Plasma FZ <24 1st Cont Routi ne Lab 06/10/20 13:23 Results Leukocyte Reduced RBC Routine Lab 06/10/20 13:23 Results Type and Screen R outine Lab 06/10/20 13:23 Results Labs from last 24 hours 06/13/20 06/13/20 06/13/20 06:41 04:08 04:08 WBC 8.4 RBC 3.56 L Hgb 10.0 L Hct 31.6 L MCV 88.8 MCH 28.1 MCHC 31.6 RDW 12.5 Plt Count 379 MPV 11.0 H Neut % (Auto) 62.8 Lymph % (Auto) 24.7 White % (Auto) 9.1 Eos % (Auto) 2.6 Baso % (Auto) 0.6 Neut # (Auto) 5.26 Lymph # (Auto) 2.1 White # (Auto) 0.8 Eos # (Auto) 0.2 Baso # (Auto) 0.1 Nucleated RBC % (a uto) 0 Nucleated RBCs # 0.0 PT INR Sodium 142 Potassium 4.0 Chloride 103 Carbon Dioxide 29 Anion Gap 14.0 BUN 14 Creatinine 1.3 H GFR Calculation Not Reportable Glucose 131 H POC Glucose 150 Calculated Osmolal ity 296 H Calcium 9.1 Total Bilirubin 0.5 AST 35 H ALT 13 Alkaline Phosphata se 83 Total Protein 5.6 L Albumin 3.1 L Globulin 2.5 06/12/20 06/12/20 06/12/20 20:20 15:37 13:50 WBC RBC Hgb Hct MCV MCH MCHC RDW Plt Count MPV Neut % (Auto) Lymph % (Auto) White % (Auto) Eos % (Auto) Baso % (Auto) Neut # (Auto) Lymph # (Auto) White # (Auto) Eos # (Auto) Baso # (Auto) Nucleated RBC % (a uto) Nucleated RBCs # PT 15.30 H INR 1.17 Sodium Potassium Chloride Carbon Dioxide Anion Gap BUN Creatinine GFR Calculation Glucose POC Glucose 262 72 Calculated Osmolal ity Calcium Total Bilirubin AST ALT Alkaline Phosphata se Total Protein Albumin Globulin 06/12/20 06/12/20 13:50 11:20 WBC RBC Hgb 9.6 L Hct 30.7 L MCV MCH MCHC RDW Plt Count MPV Neut % (Auto) Lymph % (Auto) White % (Auto) Eos % (Auto) Baso % (Auto) Neut # (Auto) Lymph # (Auto) White # (Auto) Eos # (Auto) Baso # (Auto) Nucleated RBC % (a uto) Nucleated RBCs # PT INR Sodium Potassium Chloride Carbon Dioxide Anion Gap BUN Creatinine GFR Calculation Glucose POC Glucose 215 Calculated Osmolal ity Calcium Total Bilirubin AST ALT Alkaline Phosphata se Total Protein Albumin Globulin Vitals: Last Vital Signs Temp 96.3 F L 06/13/20 08:00 Pulse 70 06/13/20 08:42 Resp 16 06/13/20 08:00 BP 135/72 06/13/20 08:00 Pulse Ox 97 06/13/20 08:00 Discharge Plan Discharge Patient Disposition: Home Condition: Stable Prescriptions: New pantoprazole 40 mg Tablet,Delayed Release (Dr/Ec) 40 mg PO BID Qty: 60 RF: 0 metronidazole 500 mg Tablet 500 mg PO Q8H Qty: 21 RF: 0 ciprofloxacin HCl 500 mg Tablet 500 mg PO Q12H Qty: 14 RF: 0 Continued magnesium oxide 400 mg magnesium capsule 400 mg PO DAILY RF: 0 multivitamin Tablet 1 tab PO DAILY RF: 0 levothyroxine 50 mcg capsule 50 mcg PO DAILY RF: 0 omega-3 fatty acids [Fish Oil Concentrate] 1,000 mg capsule 1,000 mg PO DAILY RF: 0 pravastatin 40 mg tablet 40 mg PO DAILY RF: 0 rivastigmine tartrate 3 mg capsule 3 mg PO BID Qty: 60 RF: 4 digoxin [Digox] 125 mcg (0.125 mg) tablet 125 mcg PO DAILY Qty: 90 RF: 3 metformin 500 mg tablet extended release 24 hr 500 mg PO DAILY RF: 0 Discontinued aspirin [Adult Low Dose Aspirin] 81 mg tablet,delayed release (DR/EC) 81 mg PO DAILY RF: 0 Coumadin 2.5 mg tablet 2.5 mg PO DAILY Qty: 30 RF: 6 cephalexin [Keflex] 500 mg capsule 500 mg PO Q6H 7 Days Qty: 28 RF: 0 Discharge Orders: Discharge Order (Routine); Ordered 06/13/20 Ordered By: Enrico Taylor Referrals: Mariajose Brice APN [Primary Care Provider] - 4-7 days (Consider colonoscopy 4 to 6 weeks If no bleeding and hemoglobin stable consider resuming aspirin in 7 days. Co nsider reinitiation of Coumadin after colonoscopy. CBC on follow-up) Discharge Diet: GI Soft Discharge Activity: Increase activity as tolerated Activity Restrictions/Additional Instructions: Take all medicine as prescribed Return for any severe bleeding Do not take your Coumadin or aspirin currently. Discharge Attestations Time Spent in Discharge Care*: greater than 30 min Status at Discharge: Cognitive status at discharge: cognitively intact , Behavioral status at discharge: cooperative , Quality Metrics Clinical Quality Measures During this hospital stay, did patient experience: None Coding Level of Care Code Acute Buoy Tender for [facility] Diagnoses GI bleed K92.2 Diverticulitis K57.92 Supratherapeutic INR R79.1 Anemia D64.9 Atrial fibrillation I48.20 Atrial fibrillation type: unspecified chronic Diastolic heart failure I50.32 Heart failure chronicity: chronic Diabetes mellitus E11.9 Diabetes mellitus type: type 2 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
[2020-06-13 10:46] VITALS: BP 135/72; PULSE 70; RESP 16; TEMP 36.3; O2SAT 97
== END 2020-06-13 11:41 | disposition home or self-care (01) | DRG 378 ==
LOC: ER 13:02 → CSU 17:56
PROVIDERS: Family Medicine; Admitting Provider Internal Medicine; PCP Nurse Practitioner; Visit Provider Internal Medicine
DX: K92.2 Gastrointestinal hemorrhage, unspecified (principal); I48.20 Chronic atrial fibrillation, unspecified; I50.32 Chronic diastolic (congestive) heart failure; R79.1 Abnormal coagulation profile; E78.5 Hyperlipidemia, unspecified; F02.80 Dementia in other diseases classified elsewhere, unspecified severity, without behavioral disturbance, psychotic disturbance, mood disturbance, and anxiety; G30.1 Alzheimer's disease with late onset; I11.0 Hypertensive heart disease with heart failure; D64.9 Anemia, unspecified; E03.9 Hypothyroidism, unspecified; F32.9 Major depressive disorder, single episode, unspecified; G47.33 Obstructive sleep apnea (adult) (pediatric); Z86.73 Personal history of transient ischemic attack (TIA), and cerebral infarction without residual deficits; Z79.01 Long term (current) use of anticoagulants; Z79.84 Long term (current) use of oral hypoglycemic drugs; M79.7 Fibromyalgia; E11.40 Type 2 diabetes mellitus with diabetic neuropathy, unspecified; Z87.891 Personal history of nicotine dependence; Z95.0 Presence of cardiac pacemaker
CPT/HCPCS: 12345; 36415; 36416; 36430; 73552; 74177; 80053; 82962; 85014; 85018; 85025; 85610; 86850; 86900; 86920; 86927; 96372; 96375; 97110; 97116; 97161; 99283; C9113; J0744; J1815; J3430; J7030; P9016; P9017; Q9967; S0030

== ENCOUNTER 2020-06-14 16:19 | Emergency (ER) | payer MEDICARE, SELFPAY ==
[2020-06-14 16:36] VITALS: BP 183/95; PULSE 75; RESP 20; TEMP 36.9; O2SAT 97; BMI 21.9
--- NOTE | 2020-06-14 16:50 | ED_ITS ---
HPI - Nausea/Vomiting/Diarrhea General: Chief complaint: Nausea/Vomiting/Diarrhea Stated complaint: N/V/D; D/C [facility] [place].13.2020; L SIDE HEAD PAIN Time Seen by Provider: 06/14/20 16:32 Source: patient Mode of arrival: ambulatory Limitations: no limitations History of Present Illness: HPI Narrative: Jessica is a 74-year-old female who was recently admitted here for diverticulitis along with GI bleed. She received 1 transfusion and was watched for a few days and her hemoglobin stabilized. Patient went home yesterday states she started to feel sick today and had one episode of vomiting. She has had 1 bowel movement to seem to be dark. She denies any weakness. She has had slight abdominal pain she rates a 2 out of 10. Denies any fevers. Associated nausea: Yes Associated symtoms: Reports nausea; Denies chest pain, dysuria or headache(s) Review of Systems Const: Denies: fever(s), chills, body aches or change in appetite Eyes: Denies: blurry vision or eye discomfort ENMT: Denies: throat pain or dental pain Card: Denies: chest pain Resp: Denies: dyspnea GI: Reports: nausea and vomiting : Denies: dysuria Musc: Denies: neck pain or back pain Skin/Breast: Denies: rash Neuro: Denies: headache(s) Psych: Denies: depression Manuel/Lymph: Denies: easy bruising All/Imm: Denies: urticaria PFSH ED PFSH: Medical History Atrial fibrillation Depression Diabetes mellitus Diastolic heart failure Diverticulitis Fibromyalgia GI bleed Diverticulitis suggested on CT scan. History of CVA (cerebrovascular accident) Hyperlipidemia Hypertension Hypothyroidism -has hx of hypothyroidism -continue levothyroxine Lower gastrointestinal hemorrhage Neuropathy Sleep apnea unclear if cpap machine working Surgical History S/P appendectomy S/P cardiac pacemaker procedure S/P carpal tunnel release S/P cholecystectomy S/P gastric surgery S/P hernia repair S/P hysterectomy S/P knee replacement Family History Father Stroke Mother Diabetes Hypertension CAD (coronary artery disease) Social History Smoking and tobacco status: former smoker Quit status (tobacco): has quit using tobacco Year quit tobacco: 1986 Alcohol intake: never History of recent travel: No Physical Exam Const: COMMON NORMALS: no acute distress, patient oriented x3 and healthy appearing HENMT: COMMON NORMALS: normocephalic and atraumatic HEAD & SCALP: normocephalic and atraumatic Eye: COMMON NORMALS: Equal, round and reactive pupils present and EOMs intact bilaterally PUPIL: Yes Equal, round and reactive pupils present Neck/C-Spine: COMMON NORMALS: full ROM and supple Chest: COMMONS NORMALS: normal inspection of the chest and normal palpation of entire chest wall Resp: COMMON NORMALS: normal respiratory effort, No retractions, No use of accessory muscles and clear to auscultation bilaterally AUSCULTATION: clear to auscultation bilaterally Cardio: COMMON NORMALS: regular rate, regular rhythm and No murmurs present (Cardio) RATE: regular rate RHYTHM: regular rhythm GI: COMMON NORMALS: Normal to inspection, nondistended, normoactive bowel sounds present, Soft to palpation, non-tender and no masses PALPATION: Yes Soft to palpation Extremity: COMMON NORMALS: normal to inspection and full ROM Neuro: COMMON NORMALS: patient oriented x3, moves all extremities and no focal motor deficits Psych: COMMON NORMALS: mental status grossly normal, Normal thought process present and cooperative THOUGHT PROCESS: Normal thought process present Skin: COMMON NORMALS: no rashes or lesions noted and no wounds GENERAL SKIN EXAM: no rashes or lesions noted Course Vital Signs: Vital signs: Vital Signs Temperature 98.4 F 06/14/20 16:36 Pulse Rate 81 06/14/20 19:37 Respiratory Rate 14 06/14/20 19:37 Blood Pressure 168/87 06/14/20 19:37 Pulse Oximetry 96 06/14/20 19:37 MDM - Nausea/Vomiting/Diarrhea MDM Narrative: Medical decision making narrative: Patient presents here with vomiting. This is likely due to her Flagyl. Her hemoglobin here is stable from discharge. Rectal exam here showed no gross blood and is not dark or tarry. Patient feels improved here. Abdominal exam is benign. She is stable for discharge and is to follow-up as scheduled and is to return if worsening. Patient and daughter understand and agree to plan. Lab Data: Labs: Lab Results 06/14/20 06/14/20 Range/Units 17:00 17:00 WBC 9.8 (4.0-10.0) 10^3/ uL RBC 3.82 L (4.1-5.3) 10^6/u L Hgb 10.8 L (11.5-15.3) g/dL Hct 33.7 L (37.0-47.0) % MCV 88.2 (81-99) fL MCH 28.3 (28.0-34.0) pg MCHC 32.0 (30.0-36.0) g/dL RDW 12.9 (12.1-15.1) % Plt Count 405 H (130-400) 10^3/c mm MPV 10.4 (7.4-10.4) fL Neut % (Auto) 76.7 % Lymph % (Auto) 15.4 % [place] % (Auto) 6.3 % Eos % (Auto) 0.7 % Baso % (Auto) 0.6 % Neut # (Auto) 7.50 (1.8-7.7) 10^3/u L Lymph # (Auto) 1.5 (0.8-4.8) 10^3/u L [place] # (Auto) 0.6 (0.2-0.9) 10^3/u L Eos # (Auto) 0.1 (0.0-0.8) 10^3/u L Baso # (Auto) 0.1 (0.0-0.1) 10^3/u L Nucleated RBC % (a uto) 0 % Nucleated RBCs # 0.0 /100WBC Sodium 135 L (136-145) mmol/L Potassium 4.1 (3.5-5.1) mmol/L Chloride 97 L (98-107) mmol/L Carbon Dioxide 25 (22-29) mmol/L Anion Gap 17.1 (5-19) BUN 14 (8-23) mg/dL Creatinine 1.4 H (0.5-0.9) mg/dL GFR Calculation Not Reportable Glucose 185 H (65-115) mg/dL Calculated Osmolal ity 285 (285-295) mOsm/k g Calcium 9.8 (8.5-10.5) mg/dL Total Bilirubin 0.6 (0.15-1.2) mg/dL AST 69 H (0-32) U/L ALT 20 (0-33) U/L Alkaline Phosphata se 90 (35-105) IU/L Total Protein 6.7 (6.6-8.7) g/dL Albumin 3.7 (3.5-5.2) g/dL Globulin 3.0 (1.3-4.6) g/dL Lipase 42 (13-60) U/L Discharge Plan Discharge Patient Disposition: Home Clinical Impression: Vomiting Qualifiers: Vomiting type: unspecified Vomiting Intractability: non-intractable Nausea presence: with nausea Qualified Code(s): R11.2 - Nausea with vomiting, unspecified Abdominal pain Qualifiers: Abdominal location: generalized Qualified Code(s): R10.84 - Generalized abdominal pain Condition: Stable Prescriptions: New ondansetron 4 mg tablet,disintegrating 4 mg PO Q6H PRN (Reason: nausea and vomiting) Qty: 14 RF: 0 No Action magnesium oxide 400 mg magnesium capsule 400 mg PO DAILY RF: 0 multivitamin Tablet 1 tab PO DAILY RF: 0 levothyroxine 50 mcg capsule 50 mcg PO DAILY RF: 0 omega-3 fatty acids [Fish Oil Concentrate] 1,000 mg capsule 1,000 mg PO DAILY RF: 0 pravastatin 40 mg tablet 40 mg PO DAILY RF: 0 rivastigmine tartrate 3 mg capsule 3 mg PO BID Qty: 60 RF: 4 digoxin [Digox] 125 mcg (0.125 mg) tablet 125 mcg PO DAILY Qty: 90 RF: 3 metronidazole 500 mg Tablet 500 mg PO Q8H Qty: 21 RF: 0 ciprofloxacin HCl 500 mg Tablet 500 mg PO Q12H Qty: 14 RF: 0 pantoprazole 40 mg Tablet,Delayed Release (Dr/Ec) 40 mg PO BID Qty: 60 RF: 0 citalopram 10 mg tablet 10 mg PO DAILY RF: 0 Discharge Orders: Discharge Order (Routine); Ordered 06/14/20 Ordered By: Lucretia Leon Referrals: Mariajose Brice BEAD INSPECTOR [Primary Care Provider] - 1-3 days Discharge Diet: Advance as tolerated Discharge Activity: Resume usual activity Patient Instructions: Abdominal Pain (ED) Discharge Date/Time: 06/14/20 19:39 Coding Level of Care Code ED [facility]ch for Chg Fwd Exam Comprehensive
[2020-06-14] MEDS: ondansetron 2 mg/ML SDV 2 mL 4 MG IVP (16:57)
[2020-06-14 16:58] VITALS: RESP 18
[2020-06-14] MEDS: morphine 4 mg/mL SDV 1 mL IVP (16:58)
[2020-06-14 17:02] VITALS: RESP 10; O2SAT 82
[2020-06-14 17:03] VITALS: RESP 14; O2SAT 99
[2020-06-14 17:03] LABS: Basophils # 0.1 10^3/uL (0.0-0.1); Basophils % 0.6 %; Eosinophils # 0.1 10^3/uL (0.0-0.8); Eosinophils % 0.7 %; Hematocrit 33.7 % (37.0-47.0); Hemoglobin 10.8 g/dL (11.5-15.3); Lymphocytes # 1.5 10^3/uL (0.8-4.8); Lymphocytes % 15.4 %; Mean Corpuscular Hemoglobin 28.3 pg (28.0-34.0); Mean Corpuscular Volume 88.2 fL (81-99); Mean Platelet Volume 10.4 fL (7.4-10.4); Monocytes # 0.6 10^3/uL (0.2-0.9); Monocytes % 6.3 %; Neutrophils % 76.7 %; Nucleated Red Blood Cells % 0 %; Platelet Count 405 10^3/cmm (130-400); Red Blood Count 3.82 10^6/uL (4.1-5.3); Red Cell Distribution Width 12.9 % (12.1-15.1); White Blood Count 9.8 10^3/uL (4.0-10.0)
[2020-06-14 17:34] LABS: Alanine Aminotransferase 20 U/L (0-33); Albumin Level 3.7 g/dL (3.5-5.2); Alkaline Phosphatase 90 IU/L (35-105); Blood Urea Nitrogen 14 mg/dL (8-23); Calcium 9.8 mg/dL (8.5-10.5); Carbon Dioxide 25 mmol/L (22-29); Chloride 97 mmol/L (98-107); Glucose 185 mg/dL (65-115); Lipase 42 U/L (13-60); Osmolality Calculated 285 mOsm/kg (285-295); Sodium 135 mmol/L (136-145); Total Bilirubin 0.6 mg/dL (0.15-1.2); Total Protein 6.7 g/dL (6.6-8.7)
[2020-06-14 17:41] LABS: Anion Gap 17.1 (5-19); Potassium 4.1 mmol/L (3.5-5.1)
[2020-06-14 17:42] LABS: Aspartate Amino Transferase 69 U/L (0-32)
[2020-06-14 18:22] VITALS: BP 178/103; PULSE 84; RESP 16; O2SAT 93
[2020-06-14] MEDS: ondansetron 4 MG Tablet PO (19:36)
[2020-06-14 19:37] VITALS: BP 168/87; PULSE 81; RESP 14; O2SAT 96
== END 2020-06-14 19:39 | disposition home or self-care (01) ==
PROVIDERS: Emergency Provider Emergency Medicine; PCP Nurse Practitioner
DX: R10.84 Generalized abdominal pain (principal); R11.2 Nausea with vomiting, unspecified; I48.91 Unspecified atrial fibrillation; E11.40 Type 2 diabetes mellitus with diabetic neuropathy, unspecified; I11.0 Hypertensive heart disease with heart failure; I50.30 Unspecified diastolic (congestive) heart failure; E78.5 Hyperlipidemia, unspecified; Z86.73 Personal history of transient ischemic attack (TIA), and cerebral infarction without residual deficits; Z95.0 Presence of cardiac pacemaker; Z87.891 Personal history of nicotine dependence
CPT/HCPCS: 12345; 80053; 83690; 85025; 96374; 96375; 99282; 99283; J2270; J2405; Q0162

== ENCOUNTER 2020-07-21 20:09 | Inpatient (IN) | payer MEDICARE, SELFPAY ==
--- NOTE | 2020-07-21 20:25 | CTR_ITS ---
PROCEDURE INFORMATION: Exam: CT Head Without Contrast Exam date and time: 07/21/2020 9:24 PM Age: 74 years old Clinical indication: Pain; Headache not specified; Additional info: Headache, hypertension TECHNIQUE: Imaging protocol: Computed tomography of the head without contrast. Radiation optimization: All CT scans at this facility use at least one of these dose optimization techniques: automated exposure control; mA and/or kV adjustment per patient size (includes targeted exams where dose is matched to clinical indication); or iterative reconstruction. ADDITIONAL STUDY INFORMATION: Total DLP (mGy-cm): 851.25 COMPARISON: CT head wo con* [id number] 01/06/2020 9:01 PM FINDINGS: Moderate area of malacia/gliosis in left occipital lobe is most compatible with old infarction. There is prominent low density in the bilateral periventricular white matter which may represent chronic small vessel ischemic disease in the appropriate clinical setting. The possibility of superimposed acute infarctions cannot be excluded; consider MRI brain (including diffusion images) for further assessment if clinically warranted and if patient has no contraindication to MRI. There are prominent intracranial arterial calcifications. There is mild to moderate cerebral cortical volume loss. Ventricles do not appear significantly dilated. No depressed calvarial fracture is demonstrated. Visualized paranasal sinuses and mastoid air cells demonstrate no significant opacification. CT/CT head wo con* [id number] IMPRESSION: Probable prominent chronic ischemic changes as discussed above. Radiation Dose CTDIVOL = (mGy): DLP = 851.25 (mGy-cm)
[2020-07-21 20:27] VITALS: BP 194/91; PULSE 81; RESP 18; TEMP 36.6; O2SAT 98; BMI 22.8
[2020-07-21 21:02] LABS: Basophils # 0.1 10^3/uL (0.0-0.1); Basophils % 0.7 %; Eosinophils # 0.1 10^3/uL (0.0-0.8); Hematocrit 34.3 % (37.0-47.0); Hemoglobin 10.9 g/dL (11.5-15.3); Lymphocytes # 2.5 10^3/uL (0.8-4.8); Lymphocytes % 24.4 %; Mean Corpuscular HGB Conc 31.8 g/dL (30.0-36.0); Mean Corpuscular Hemoglobin 28.2 pg (28.0-34.0); Mean Corpuscular Volume 88.6 fL (81-99); Mean Platelet Volume 10.9 fL (7.4-10.4); Monocytes # 0.9 10^3/uL (0.2-0.9); Monocytes % 9.1 %; Neutrophils # 6.69 10^3/uL (1.8-7.7); Neutrophils % 64.6 %; Nucleated Red Blood Cells % 0 %; Platelet Count 337 10^3/cmm (130-400); Red Blood Count 3.87 10^6/uL (4.1-5.3); Red Cell Distribution Width 13.6 % (12.1-15.1); White Blood Count 10.3 10^3/uL (4.0-10.0)
--- NOTE | 2020-07-21 21:17 | XRR_ITS ---
PROCEDURE INFORMATION: Exam: XR Chest, 1 View Exam date and time: 07/21/2020 10:21 PM Age: 74 years old Clinical indication: Patient HX: Headache, HTN, AMS unable to obtain history TECHNIQUE: Imaging protocol: XR of the chest Views: 1 view. COMPARISON: CR XR chest 1V portable [id number] 06/04/2020 6:16 PM FINDINGS: Lung volumes are low, limiting assessment. Otherwise no focal pulmonary consolidation is demonstrated on this single frontal image. No significant obscuration of the lateral costophrenic angles is demonstrated. No significant vascular congestion is demonstrated. There is scattered pulmonary scarring bilaterally. Visualized cardiac silhouette size appears moderately enlarged, accentuated by low lung volumes. Pericardial effusion not excluded. There are calcifications in the thoracic aorta. Similar position of the pacer leads. There is distention of visualized stomach. XR/XR chest 1V portable [id number] IMPRESSION: No definite acute pulmonary process is demonstrated. Visualized cardiac silhouette size appears moderately enlarged, accentuated by low lung volumes. Pericardial effusion not excluded. There is distention of visualized stomach.
[2020-07-21 21:22] LABS: Troponin(5th) Baseline 28 ng/L (0-10)
--- NOTE | 2020-07-21 21:25 | PC.NURSE ---
UA in lab
[2020-07-21 21:29] LABS: Alanine Aminotransferase 10 U/L (0-33); Albumin Level 4.1 g/dL (3.5-5.2); Alkaline Phosphatase 105 IU/L (35-105); Anion Gap 13.1 (5-19); Aspartate Amino Transferase 22 U/L (0-32); Blood Urea Nitrogen 10 mg/dL (8-23); Calcium 9.6 mg/dL (8.5-10.5); Carbon Dioxide 31 mmol/L (22-29); Chloride 100 mmol/L (98-107); Globulin 2.5 g/dL (1.3-4.6); Glucose 220 mg/dL (65-115); NT Pro B Type Natriuretic Pept 2973 pg/mL (0-450); Osmolality Calculated 296 mOsm/kg (285-295); Potassium 4.1 mmol/L (3.5-5.1); Sodium 140 mmol/L (136-145); Total Bilirubin 0.3 mg/dL (0.15-1.2); Total Protein 6.6 g/dL (6.6-8.7)
[2020-07-21 21:37] LABS: Add Urine Microscopic? NO
[2020-07-21 21:45] LABS: Protein Urine Neg (Negative); Urine Appearance Clear (CLEAR); Urine Color Straw (Yellow); pH Urine 9 (5-7)
[2020-07-21 21:46] LABS: Bilirubin Urine Neg (Negative); Blood Urine Neg (Negative); Glucose Urine UA Trace (Normal); Ketones Urine Negative (Negative); Leukocyte Esterase Urine Negative (Negative); Nitrate Urine Negative (Negative); Sulfosalicylic Acid Urine Negative (Negative); Urobilinogen Urine Norm (Negative)
--- NOTE | 2020-07-21 22:14 | PC.NURSE ---
10MG ETOMIDATE WASTED WITH SECOND NURSE IN [facility]
--- NOTE | 2020-07-21 22:25 | ECG_ITS ---
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 Measurements Intervals [place] Rate: 105 P: UT: -1 QRS: -84 QRSD: 93 T: 1 QT: 336 QTc: 445 Interpretive Statements ATRIAL FIBRILLATION WITH RAPID VENTRICULAR RESPONSE WITH DEMAND PACING LEFT AXIS DEVIATION [QRS AXIS < -30] MINIMAL ST DEPRESSION [0.025+ mV ST DEPRESSION] Compared to ECG 10/04/2018 09:13:37 Left-axis deviation now present ST (T wave) deviation now present T-wave abnormality no longer present Possible ischemia no longer present Electronically Signed On 07-22-2020 11:36:06 SURGICAL PATHOLOGIST by Martha Lopez M.D. [id number]
[2020-07-21] MEDS: ondansetron 2 mg/ML SDV 2 mL 4 MG IVP (22:29)
[2020-07-21] MEDS: midazolam 1 mg/mL INJ 2 mL 2 MG IVP (22:30)
[2020-07-21 22:34] VITALS: BP 177/113; PULSE 94; RESP 25; O2SAT 100
[2020-07-21 23:00] LABS: Lipase 107 U/L (13-60)
[2020-07-21] MEDS: nitroglycerin 1 gm/inch oint Pkt 1.5 INCH TOPICAL (23:02)
[2020-07-21] MEDS: FUROsemide 10 mg/mL SDV 10mL 80 MG IVP (23:02)
[2020-07-21] MEDS: metoprolol tartrate 1 mg/1 mL SDV 5 mL 5 MG IV (23:02)
--- NOTE | 2020-07-21 23:03 | PC.NURSE ---
Patient blood glucose is 268, nurse was notified
[2020-07-21 23:05] LABS: Ammonia 14 umol/L (11-51)
[2020-07-21 23:05] LABS: Glucose Point of Care 268 mg/dL (70-110)
[2020-07-21 23:17] LABS: ABG PCO2 27.2 mmHg (35-45); Arterial Blood Gas Hematocrit 34.6 % (37-47); Base Excess ABG 3.3 mmol/L (-2.0-2.0); Blood Gas Allen Test Pos; Blood Gas Sample Site Brachial, left; Blood Gas Sample Type Arterial; HCO3 ABG 24.7 mmol/L (22-26); Oxygen Device NC; PO2 ABG 89.4 mmHg (80.0-100.0)
--- NOTE | 2020-07-21 23:27 | W.ED.NAVMDI ---
HPI - Nausea/Vomiting/Diarrhea General: Chief complaint: Nausea/Vomiting/Diarrhea Stated complaint: high bp/headache Time Seen by Provider: 07/21/20 21:10 History of Present Illness: HPI Narrative: 74-year-old female complains of headache, with vomiting and nausea as well as mental status change. Evidently she started to have a headache at home. Her blood pressure was high she came to the emergency department. While in the waiting room, she had some mental status changes. There may or may not have been some slurring of her speech. She acted confused and shaky. She began to vomit in the waiting room as well. She still complained of headache. She presents on my exam to be acutely agitated and confused. Her blood pressure was high on arrival as well. She is vomiting on exam as well. MD elicited complaint: nausea, vomiting and other Pertinent past history: other Onset (ago): hour(s) Description of vomiting: food contents Associated nausea: Yes Associated abdominal pain: No Location of pain: None Exacerbating factors: none Relieving factors: none Associated symtoms: Reports altered mental status, anxiety, dizziness, headache(s), nausea, palpitations and short of breath; Denies change in vision, dysuria or fevers/chills Review of Systems General: Reports: ROS unobtainable due to medical condition, ROS unobtainable due to mental status and Other (Review of system history taken from her daughter who lives with her.) Const: Denies: fever(s) or chills Eyes: Denies: change in vision or blurry vision ENMT: Denies: swelling of lips/tongue, change in hearing or sinus pain Card: Reports: palpitations Resp: Reports: dyspnea; Denies: productive cough, non-productive cough or wheezing GI: Reports: nausea : Reports: urinary frequency; Denies: dysuria or hematuria Skin/Breast: Denies: rash or erythema Neuro: Reports: headache(s) and dizziness Psych: Reports: anxiety PFSH ED PFSH: Medical History Atrial fibrillation Depression Diabetes mellitus Diastolic heart failure Diverticulitis Fibromyalgia GI bleed Diverticulitis suggested on CT scan. History of CVA (cerebrovascular accident) Hyperlipidemia Hypertension Hypothyroidism -has hx of hypothyroidism -continue levothyroxine Lower gastrointestinal hemorrhage Neuropathy Sleep apnea unclear if cpap machine working Surgical History S/P appendectomy S/P cardiac pacemaker procedure S/P carpal tunnel release S/P cholecystectomy S/P gastric surgery S/P hernia repair S/P hysterectomy S/P knee replacement Family History Father Stroke Mother Diabetes Hypertension CAD (coronary artery disease) Social History Smoking and tobacco status: former smoker Quit status (tobacco): has quit using tobacco Year quit tobacco: 1986 Alcohol intake: never History of recent travel: No Physical Exam Const: EXAM LIMITATIONS: altered mental status GENERAL APPEARANCE: in distress, anxious, ill appearing and frail appearing ORIENTATION/CONSCIOUSNESS: Yes oriented to person and Yes oriented to time; not oriented to place HENMT: COMMON NORMALS: normocephalic, external ears normal and Normal external nose present HEAD & SCALP: normocephalic FACE & SINUS: normal facial exam NOSE: Normal external nose present and No nasal discharge present EXTERNAL EAR: Yes external ears normal Eye: COMMON NORMALS: Equal, round and reactive pupils present, EOMs intact bilaterally and conjunctivae normal EYELID: eyelids normal CONJUNCTIVA: Yes conjunctivae normal PUPIL: Yes Equal, round and reactive pupils present Neck/C-Spine: GENERAL: No tracheal deviation Chest: COMMONS NORMALS: normal inspection of the chest CHEST: No tenderness Resp: COMMON NORMALS: clear to auscultation bilaterally EFFORT & INSPECTION: No tachypneic, No respiratory distress, No retractions, No uses accessory muscles and No tracheal deviation AUSCULTATION: clear to auscultation bilaterally, no rhonchi, no wheezes and lung sounds not diminished Cardio: COMMON NORMALS: regular rate and regular rhythm RATE: regular rate RHYTHM: regular rhythm HEART SOUNDS: no murmurs PERIPHERAL PULSES: radial pulses present GI: INSPECTION: No abdominal distension AUSCULTATION: No Hyperactive bowel sounds present and No Hypoactive bowel sounds present PALPATION: No Guarding due to palpation present (GI) and No Rigid due to palpation PERCUSSION: no dullness to percussion and no tympanic to percussion Neuro: SENSORIUM/ORIENTATION: Yes oriented to person, No oriented to place and Yes oriented to time SPEECH: speech normal GAIT: Yes Unable to assess gait SENSORY EXAM: Yes extremities (intact sensation) MOTOR EXAM: Tremors during motor activity present and Other motor observations present (symmetrical extremity movements. no deficits. ) Psych: COMMON NORMALS: mental status grossly normal Skin: COMMON NORMALS: no rashes or lesions noted GENERAL SKIN EXAM: no rashes or lesions noted Course Consultations: Consultation #1: Redd Time: 23:46 Vital Signs: Vital signs: Vital Signs Temperature 97.8 F 07/21/20 20:27 Pulse Rate 92 07/22/20 00:43 Respiratory Rate 16 07/22/20 00:43 Blood Pressure 145/93 07/22/20 00:43 Pulse Oximetry 92 07/22/20 00:43 MDM - Nausea/Vomiting/Diarrhea MDM Narrative: Medical decision making narrative: 74-year-old female with history of dementia presenting with headache, vomiting, and confusion. She was agitated on exam. She was very anxious in CT, and vomited, and had to be sedated very briefly. She did this without complication. Head CT is negative. Chest x-ray shows cardiomegaly and pulmonary edema. BNP is elevated at 3000. Creatinine is 1. Hemoglobin is 11. Her urinalysis is negative for infection. She has no history of fever. Her blood gas shows a pH of 7.56. Her PO2 is 89 on 2 L currently she is gotten Lasix. She had a brief run of atrial fibrillation was significantly rapid ventricular response. Her rate was in the 150s. This is improved after 2.5 mg of metoprolol ordered. Lab Data: Labs: Lab Results 07/21/20 07/21/20 07/21/20 Range/Units 20:55 20:55 20:55 WBC 10.3 H (4.0-10.0) 10^3/ uL RBC 3.87 L (4.1-5.3) 10^6/u L Hgb 10.9 L (11.5-15.3) g/dL Hct 34.3 L (37.0-47.0) % MCV 88.6 (81-99) fL MCH 28.2 (28.0-34.0) pg MCHC 31.8 (30.0-36.0) g/dL RDW 13.6 (12.1-15.1) % Plt Count 337 (130-400) 10^3/c mm MPV 10.9 H (7.4-10.4) fL Neut % (Auto) 64.6 % Lymph % (Auto) 24.4 % [place] % (Auto) 9.1 % Eos % (Auto) 1.0 % Baso % (Auto) 0.7 % Neut # (Auto) 6.69 (1.8-7.7) 10^3/u L Lymph # (Auto) 2.5 (0.8-4.8) 10^3/u L [place] # (Auto) 0.9 (0.2-0.9) 10^3/u L Eos # (Auto) 0.1 (0.0-0.8) 10^3/u L Baso # (Auto) 0.1 (0.0-0.1) 10^3/u L Nucleated RBC % (a uto) 0 % Nucleated RBCs # 0.0 /100WBC PT (12.1-14.9) SECO NDS INR (0.8-1.2) Specimen Type Sample Site ABG pH (7.35-7.45) ABG pCO2 (35-45) mmHg ABG pO2 (80.0-100.0) mmH g ABG HCO3 (22-26) mmol/L ABG Base Excess (-2.0-2.0) mmol/ L Kye Test Hematocrit (37-47) % O2 Delivery Device O2 Liters/Min % FiO2 % Semi Conductor Assembler ID Sodium 140 (136-145) mmol/L Potassium 4.1 (3.5-5.1) mmol/L Chloride 100 (98-107) mmol/L Carbon Dioxide 31 H (22-29) mmol/L Anion Gap 13.1 (5-19) BUN 10 (8-23) mg/dL Creatinine 1.0 H (0.5-0.9) mg/dL GFR Calculation Not Reportable Glucose 220 H (65-115) mg/dL POC Glucose (70-110) mg/dL Calculated Osmolal ity 296 H (285-295) mOsm/k g Lactate (0.5-2.2) mmol/L Calcium 9.6 (8.5-10.5) mg/dL Total Bilirubin 0.3 (0.15-1.2) mg/dL AST 22 (0-32) U/L ALT 10 (0-33) U/L Alkaline Phosphata se 105 (35-105) IU/L Ammonia (11-51) umol/L Troponin T Baselin e 28 H (0-10) ng/L Troponin T 120 Min [place] (0-10) ng/L Delta Troponin T (0-10) ABS# NT-Pro-B Natriuret Pep 2973 H (0-450) pg/mL Total Protein 6.6 (6.6-8.7) g/dL Albumin 4.1 (3.5-5.2) g/dL Globulin 2.5 (1.3-4.6) g/dL Lipase (13-60) U/L Urine Color (Yellow) Urine Appearance (CLEAR) Urine pH (5-7) Ur Specific Gravit y (1.005-1.030) Urine Protein (Negative) Urine Glucose (UA) (Normal) Urine Ketones (Negative) Urine Blood (Negative) Urine Nitrate (Negative) Urine Bilirubin (Negative) Prot Sulfosalicyli c Acd (Negative) Urine Urobilinogen (Negative) mg/dL Ur Leukocyte [place] ase (Negative) Digoxin (0.6-1.2) ng/mL 07/21/20 07/21/20 07/21/20 Range/Units 20:55 20:55 21:22 WBC (4.0-10.0) 10^3/ uL RBC (4.1-5.3) 10^6/u L Hgb (11.5-15.3) g/dL Hct (37.0-47.0) % MCV (81-99) fL MCH (28.0-34.0) pg MCHC (30.0-36.0) g/dL RDW (12.1-15.1) % Plt Count (130-400) 10^3/c mm MPV (7.4-10.4) fL Neut % (Auto) % Lymph % (Auto) % [place] % (Auto) % Eos % (Auto) % Baso % (Auto) % Neut # (Auto) (1.8-7.7) 10^3/u L Lymph # (Auto) (0.8-4.8) 10^3/u L [place] # (Auto) (0.2-0.9) 10^3/u L Eos # (Auto) (0.0-0.8) 10^3/u L Baso # (Auto) (0.0-0.1) 10^3/u L Nucleated RBC % (a uto) % Nucleated RBCs # /100WBC PT 13.90 (12.1-14.9) SECO NDS INR 1.04 (0.8-1.2) Specimen Type Sample Site ABG pH (7.35-7.45) ABG pCO2 (35-45) mmHg ABG pO2 (80.0-100.0) mmH g ABG HCO3 (22-26) mmol/L ABG Base Excess (-2.0-2.0) mmol/ L Kye Test Hematocrit (37-47) % O2 Delivery Device O2 Liters/Min % FiO2 % Semi Conductor Assembler ID Sodium (136-145) mmol/L Potassium (3.5-5.1) mmol/L Chloride (98-107) mmol/L Carbon Dioxide (22-29) mmol/L Anion Gap (5-19) BUN (8-23) mg/dL Creatinine (0.5-0.9) mg/dL GFR Calculation Glucose (65-115) mg/dL POC Glucose (70-110) mg/dL Calculated Osmolal ity (285-295) mOsm/k g Lactate (0.5-2.2) mmol/L Calcium (8.5-10.5) mg/dL Total Bilirubin (0.15-1.2) mg/dL AST (0-32) U/L ALT (0-33) U/L Alkaline Phosphata se (35-105) IU/L Ammonia (11-51) umol/L Troponin T Baselin e (0-10) ng/L Troponin T 120 Min [place] (0-10) ng/L Delta Troponin T (0-10) ABS# NT-Pro-B Natriuret Pep (0-450) pg/mL Total Protein (6.6-8.7) g/dL Albumin (3.5-5.2) g/dL Globulin (1.3-4.6) g/dL Lipase 107 H (13-60) U/L Urine Color Straw (Yellow) Urine Appearance Clear (CLEAR) Urine pH 9 H (5-7) Ur Specific Gravit y 1.010 (1.005-1.030) Urine Protein Neg (Negative) Urine Glucose (UA) Trace H (Normal) Urine Ketones Negative (Negative) Urine Blood Neg (Negative) Urine Nitrate Negative (Negative) Urine Bilirubin Neg (Negative) Prot Sulfosalicyli c Acd Negative (Negative) Urine Urobilinogen Norm (Negative) mg/dL Ur Leukocyte [place] a[place] Negative (Negative) Digoxin (0.6-1.2) ng/mL 07/21/20 07/21/20 07/21/20 Range/Units 22:35 22:35 22:52 WBC (4.0-10.0) 10^3/ uL RBC (4.1-5.3) 10^6/u L Hgb (11.5-15.3) g/dL Hct (37.0-47.0) % MCV (81-99) fL MCH (28.0-34.0) pg MCHC (30.0-36.0) g/dL RDW (12.1-15.1) % Plt Count (130-400) 10^3/c mm MPV (7.4-10.4) fL Neut % (Auto) % Lymph % (Auto) % [place] % (Auto) % Eos % (Auto) % Baso % (Auto) % Neut # (Auto) (1.8-7.7) 10^3/u L Lymph # (Auto) (0.8-4.8) 10^3/u L [place] # (Auto) (0.2-0.9) 10^3/u L Eos # (Auto) (0.0-0.8) 10^3/u L Baso # (Auto) (0.0-0.1) 10^3/u L Nucleated RBC % (a uto) % Nucleated RBCs # /100WBC PT (12.1-14.9) SECO NDS INR (0.8-1.2) Specimen Type Sample Site ABG pH (7.35-7.45) ABG pCO2 (35-45) mmHg ABG pO2 (80.0-100.0) mmH g ABG HCO3 (22-26) mmol/L ABG Base Excess (-2.0-2.0) mmol/ L Kye Test Hematocrit (37-47) % O2 Delivery Device O2 Liters/Min % FiO2 % Semi Conductor Assembler ID Sodium (136-145) mmol/L Potassium (3.5-5.1) mmol/L Chloride (98-107) mmol/L Carbon Dioxide (22-29) mmol/L Anion Gap (5-19) BUN (8-23) mg/dL Creatinine (0.5-0.9) mg/dL GFR Calculation Glucose (65-115) mg/dL POC Glucose 268 (70-110) mg/dL Calculated Osmolal ity (285-295) mOsm/k g Lactate 3.0 H (0.5-2.2) mmol/L Calcium (8.5-10.5) mg/dL Total Bilirubin (0.15-1.2) mg/dL AST (0-32) U/L ALT (0-33) U/L Alkaline Phosphata se (35-105) IU/L Ammonia 14 (11-51) umol/L Troponin T Baselin e (0-10) ng/L Troponin T 120 Min [place] (0-10) ng/L Delta Troponin T (0-10) ABS# NT-Pro-B Natriuret Pep (0-450) pg/mL Total Protein (6.6-8.7) g/dL Albumin (3.5-5.2) g/dL Globulin (1.3-4.6) g/dL Lipase (13-60) U/L Urine Color (Yellow) Urine Appearance (CLEAR) Urine pH (5-7) Ur Specific Gravit y (1.005-1.030) Urine Protein (Negative) Urine Glucose (UA) (Normal) Urine Ketones (Negative) Urine Blood (Negative) Urine Nitrate (Negative) Urine Bilirubin (Negative) Prot Sulfosalicyli c Acd (Negative) Urine Urobilinogen (Negative) mg/dL Ur Leukocyte [place] ase (Negative) Digoxin (0.6-1.2) ng/mL 07/21/20 07/21/20 07/21/20 Range/Units 23:00 23:07 23:55 WBC (4.0-10.0) 10^3/ uL RBC (4.1-5.3) 10^6/u L Hgb (11.5-15.3) g/dL Hct (37.0-47.0) % MCV (81-99) fL MCH (28.0-34.0) pg MCHC (30.0-36.0) g/dL RDW (12.1-15.1) % Plt Count (130-400) 10^3/c mm MPV (7.4-10.4) fL Neut % (Auto) % Lymph % (Auto) % [place] % (Auto) % Eos % (Auto) % Baso % (Auto) % Neut # (Auto) (1.8-7.7) 10^3/u L Lymph # (Auto) (0.8-4.8) 10^3/u L [place] # (Auto) (0.2-0.9) 10^3/u L Eos # (Auto) (0.0-0.8) 10^3/u L Baso # (Auto) (0.0-0.1) 10^3/u L Nucleated RBC % (a uto) % Nucleated RBCs # /100WBC PT (12.1-14.9) SECO NDS INR (0.8-1.2) Specimen Type Arterial Sample Site Brachial, left ABG pH 7.57 H* (7.35-7.45) ABG pCO2 27.2 L (35-45) mmHg ABG pO2 89.4 (80.0-100.0) mmH g ABG HCO3 24.7 (22-26) mmol/L ABG Base Excess 3.3 H (-2.0-2.0) mmol/ L Kye Test Pos Hematocrit 34.6 L (37-47) % O2 Delivery Device Nc O2 Liters/Min 2.0 % FiO2 28.0 % Semi Conductor Assembler ID [id number] Sodium (136-145) mmol/L Potassium (3.5-5.1) mmol/L Chloride (98-107) mmol/L Carbon Dioxide (22-29) mmol/L Anion Gap (5-19) BUN (8-23) mg/dL Creatinine (0.5-0.9) mg/dL GFR Calculation Glucose (65-115) mg/dL POC Glucose (70-110) mg/dL Calculated Osmolal ity (285-295) mOsm/k g Lactate (0.5-2.2) mmol/L Calcium (8.5-10.5) mg/dL Total Bilirubin (0.15-1.2) mg/dL AST (0-32) U/L ALT (0-33) U/L Alkaline Phosphata se (35-105) IU/L Ammonia (11-51) umol/L Troponin T Baselin e (0-10) ng/L Troponin T 120 Min [place] 79.27 H (0-10) ng/L Delta Troponin T 51.27 H* (0-10) ABS# NT-Pro-B Natriuret Pep (0-450) pg/mL Total Protein (6.6-8.7) g/dL Albumin (3.5-5.2) g/dL Globulin (1.3-4.6) g/dL Lipase (13-60) U/L Urine Color (Yellow) Urine Appearance (CLEAR) Urine pH (5-7) Ur Specific Gravit y (1.005-1.030) Urine Protein (Negative) Urine Glucose (UA) (Normal) Urine Ketones (Negative) Urine Blood (Negative) Urine Nitrate (Negative) Urine Bilirubin (Negative) Prot Sulfosalicyli c Acd (Negative) Urine Urobilinogen (Negative) mg/dL Ur Leukocyte [place] ase (Negative) Digoxin 1.0 (0.6-1.2) ng/mL Discharge Plan Discharge Patient Disposition: Admitted As Inpatient Admit Provider: Ismael Rainey Clinical Impression: Acute respiratory failure with hypoxia, Acute alteration in mental status Atrial fibrillation Qualifiers: Atrial fibrillation type: longstanding persistent Qualified Code(s): I48.11 - Longstanding persistent atrial fibrillation Pulmonary edema Qualifiers: Chronicity: acute Qualified Code(s): J81.0 - Acute pulmonary edema Condition: Stable Referrals: Mariajose Brice APN [Primary Care Provider] - Discharge Date/Time: 07/22/20 00:52 Coding Level of Care Code ED Retail Custodial Associate for [facility] Fwd Exam Comprehensive
[2020-07-21 23:32] LABS: INR 1.04 (0.8-1.2)
--- NOTE | 2020-07-21 23:37 | PC.NURSE ---
REPORT RECIEVED FROM JOVANY ROCHA AND CARE TRANSFERRED TO JOVANY EATON
[2020-07-21 23:43] LABS: ABG PH Result 7.57 (7.35-7.45)
[2020-07-21 23:50] VITALS: BP 140/95; PULSE 110; O2SAT 92
[2020-07-22] VITALS (33 sets, daily range): BP systolic 101–152; BP diastolic 62–100; PULSE 71–134; RESP 16–41; TEMP 36.6–39.6; O2SAT 89–99
[2020-07-22 00:33] LABS: Troponin 5 2HR 79.27 ng/L (0-10)
[2020-07-22 00:35] LABS: Troponin 5 2HR Delta 51.27 ABS# (0-10)
--- NOTE | 2020-07-22 01:12 | PM.HP ---
Providers/Chief Complaint Admitting Physician: Ismael Rainey MD Primary Care Provider: Mariajose Brice APN Chief Complaint: high bp/headache History of Present Illness Jessica Calvert is a 74 year old female with past medical history of atrial fibrillation on digoxin, anticoagulation held due to diverticular bleed, Alzheimer's dementia, hypertension, hypothyroidism, depression, heart failure with preserved ejection fraction, CVA, struct of sleep apnea who presents to [facility] due to increased confusion, nausea, vomiting, poor appetite, shortness of breath. Currently patient is laying in bed, she is very agitated when prompted for questioning, she does get up, look around the room and and says stop bothering me, goes back to sleeping, intermittently will get up look around the room, go back to sleep. Patient's daughter at bedside tells me that she has had a slow decline since her last hospitalization, she has become much more confused, much more dependent on her daughter for activities of daily living, she is less mobile, appetite has decreased, has been having increased complaints of nausea, vomiting, headaches. Patient's daughter lives with her, checks up on her, she says that this afternoon, patient just was not behaving appropriately, so she checked her blood pressure and her blood pressure in the 200s over 110s, she was concerned for a stroke so she brought her to the emergency room. In the emergency room, she had an immediate CT scan, required sedation, no acute intracranial hemorrhage, no acute CVA, BNP was elevated to 3000, creatinine was 1, hemoglobin 11, she was saturating 89 on 2 L, she developed A. fib with RVR heart rates in the 150s, improved with metoprolol 2.5. During my examination, again patient will arouse, but is quite agitated when aroused, she refuses to answer questions, sleeping, tells me that there is nothing wrong with her, no recent complaints of chest pain or shortness of breath to the daughter. Review of Systems General: Reports: ROS unobtainable due to medical condition Medications/Allergies Home Medications Medication Instructions Recorded Confirmed Last Taken Type levothyroxine 50 mcg capsule 50 mcg PO DAILY 10/25/19 07/21/20 07/21/20 History magnesium oxide 400 mg PO DAILY 10/25/19 07/21/20 07/21/20 History multivitamin 1 tab PO DAILY 10/25/19 07/21/20 07/21/20 History omega-3 fatty acids 1,000 mg 1,000 mg PO DAILY 10/25/19 07/21/20 07/21/20 History capsule pravastatin 40 mg tablet 40 mg PO DAILY 10/25/19 07/21/20 07/20/20 History digoxin 125 mcg (0.125 mg) tablet 125 mcg PO DAILY #90 tab 02/21/20 07/21/20 07/21/20 Rx citalopram 10 mg PO DAILY 06/14/20 07/21/20 07/21/20 History rivastigmine tartrate 3 mg capsule See Rx Instructions .ROUTE 06/29/20 07/21/20 07/21/20 Rx .COMPLEX #60 cap Allergies Allergy/AdvReac Type Severity Reaction Status Date / Time codeine Allergy Unknown Unknown Verified 07/21/20 20:37 PFSH Acute PFSH: Medical History Atrial fibrillation Depression Diabetes mellitus Diastolic heart failure Diverticulitis Fibromyalgia GI bleed Diverticulitis suggested on CT scan. History of CVA (cerebrovascular accident) Hyperlipidemia Hypertension Hypothyroidism -has hx of hypothyroidism -continue levothyroxine Lower gastrointestinal hemorrhage Neuropathy Sleep apnea unclear if cpap machine working Surgical History S/P appendectomy S/P cardiac pacemaker procedure S/P carpal tunnel release S/P cholecystectomy S/P gastric surgery S/P hernia repair S/P hysterectomy S/P knee replacement Family History Father Stroke Mother Diabetes Hypertension CAD (coronary artery disease) Social History Smoking and tobacco status: former smoker Quit status (tobacco): has quit using tobacco Year quit tobacco: 1986 Alcohol intake: never History of recent travel: No Vitals/I&O/Wt Last Vital Signs Temp 97.8 F 07/21/20 20:27 Pulse 92 07/22/20 00:43 Resp 16 07/22/20 00:43 BP 145/93 07/22/20 00:43 Pulse Ox 92 07/22/20 00:43 Weight last 48 hrs Weight 56.699 kg Physical Exam Const: EXAM LIMITATIONS: altered mental status ORIENTATION/CONSCIOUSNESS: Yes awake, Yes oriented to person and Yes confused; not oriented to place and not oriented to time HENMT: COMMON NORMALS: normocephalic Eye: COMMON NORMALS: Equal, round and reactive pupils present Chest: COMMONS NORMALS: normal inspection of the chest Resp: COMMON NORMALS: No retractions, No use of accessory muscles, clear to auscultation bilaterally and percussion normal AUSCULTATION: crackles Cardio: RATE: tachycardic RHYTHM: abnormal rhythm HEART SOUNDS: S1 normal heart sound present and S2 normal heart sound present GI: COMMON NORMALS: Normal to inspection, nondistended, normoactive bowel sounds present, Soft to palpation, non-tender and No hepatosplenomegaly present : COMMON NORMALS: Yes no CVA tenderness Extremity: COMMON NORMALS: normal to inspection and full ROM Neuro: COMMON NORMALS: moves all extremities SENSORIUM/ORIENTATION: Yes alert, Yes oriented to person, No oriented to place, No oriented to time, Yes Orientation impaired and Yes fluctuating sensorium Urinary Catheter Management^: Carr: Cath Placed During This Visit: yes Reason for Continuing Indwelling Catheter: Accurate Measurement of Urinary Output in Critically Ill Patients Urinary Catheter Date of Insertion: 07/21/20 Urinary Catheter Time of Insertion: 23:21 Data : 07/21/20 20:55 07/21/20 20:55 A&P Assessment and plan (1) Acute respiratory failure with hypoxia: Secondary to acute flash pulmonary edema related to A. fib with RVR Plan Admit to CSU Bumex 1 mg every 12 hours, metolazone 5 mg Monitor I's and O's fluid restrictions 1500 cc Order cardiac echocardiogram Status: Acute (2) Altered mental status: She has baseline dementia, sounds like she has been declining over the last month, increased confusion, poor appetite, decreased functionality ct head :Moderate area of malacia/gliosis in left occipital lobe is most compatible with old infarction. There is prominent low density in the bilatera periventricular white matter which may represent chronic small vessel ischemic disease in the appropriate clinical setting. The possibility of superimposed acute infarctions cannot be excluded UA no significant evidence of UTI Chest x-ray shows pulmonary edema PlAN: -Start Rocephin for possible UTI, although unlikely -It is possible that patient could have small TIAs or strokes related to A. fib events, her anticoagulation has been held due to concerns for GI bleed, continue heparin, monitor hemoglobin, monitor for bloody stools -Neurochecks, aspiration precautions, seizure precautions Status: Acute (3) Pulmonary edema: Lasix as above Status: Acute Qualifiers: Chronicity: acute Qualified Code(s): J81.0 - Acute pulmonary edema (4) Atrial fibrillation with RVR: Continue digoxin Added metoprolol 25 twice daily Heparin drip, monitor hemoglobin closely, return for bloody or black stools Status: Acute (5) NSTEMI (non-ST elevated myocardial infarction): Baseline troponin 28, 120 minutes 79.27, delta 51.[address]-T wave changes No chest pain complaints Likely type II NSTEMI, for pulmonary edema and A. fib Aspirin, statin, beta-desirae Cardiac echocardiogram ordered Status: Acute (6) Alzheimer disease: Patient has had a stepwise decline in function over the last month, suspect that a lot of her mentation changes are related to dementia Status: Chronic Qualifiers: Alzheimer's disease onset: late-onset Dementia behavioral disturbance: without behavioral disturbance Qualified Code(s): G30.1 - Alzheimer's disease with late onset; F02.80 - Dementia in other diseases classified elsewhere without behavioral disturbance (7) Diastolic heart failure: Status: Chronic Qualifiers: Heart failure chronicity: chronic Qualified Code(s): I50.32 - Chronic diastolic (congestive) heart failure (8) Diabetes mellitus: Continue low-dose sliding scale Status: Chronic Qualifiers: Diabetes mellitus type: type 2 Diabetes mellitus technician terminal and repeater insulin use: without technician terminal and repeater use Diabetes mellitus complication status: without complication Qualified Code(s): E11.9 - Type 2 diabetes mellitus without complications (9) Hyperlipidemia: Status: Chronic Qualifiers: Hyperlipidemia type: unspecified Qualified Code(s): E78.5 - Hyperlipidemia, unspecified (10) Hypertension: Status: Chronic Qualifiers: Hypertension type: essential hypertension Qualified Code(s): I10 - Essential (primary) hypertension (11) Nausea & vomiting: Nausea control Status: Acute Attestations Medical Necessity Statement*: Patient requires hospitalization, inpatient, for A. fib with RVR, NSTEMI, pulmonary edema Coding Level of Care Code Acute Re Dye Hand for [facility] Diagnoses Acute respiratory failure with hypoxia J96.01 Altered mental status R41.82 Pulmonary edema J81.0 Chronicity: acute Atrial fibrillation with RVR I48.91 NSTEMI (non-ST elevated myocardial infarction) I21.4 Alzheimer disease G30.1; F02.80 Alzheimer's disease onset: late-onset Dementia behavioral disturbance: without behavioral disturbance Diastolic heart failure I50.32 Heart failure chronicity: chronic Diabetes mellitus E11.9 Diabetes mellitus type: type 2 Diabetes mellitus alf insulin use: without technician terminal and repeater use Diabetes mellitus complication status: without complication Hyperlipidemia E78.5 Hyperlipidemia type: unspecified Hypertension I10 Hypertension type: essential hypertension Nausea & vomiting R11.2
[2020-07-22] MEDS: OLANZapine 10 mg VIAL 5 MG IM (01:23)
[2020-07-22] MEDS: ondansetron 2 mg/ML SDV 2 mL 4 MG IVP (01:23)
--- NOTE | 2020-07-22 01:46 | CTR_ITS ---
PROCEDURE INFORMATION: Exam: CT Abdomen And Pelvis Without Contrast Exam date and time: 07/22/2020 4:36 AM Age: 74 years old Clinical indication: Nausea and vomiting; Additional info: Nausea, vommiting TECHNIQUE: Imaging protocol: Computed tomography of the abdomen and pelvis without contrast. Radiation optimization: All CT scans at this facility use at least one of these dose optimization techniques: automated exposure control; mA and/or kV adjustment per patient size (includes targeted exams where dose is matched to clinical indication); or iterative reconstruction. COMPARISON: CT abdomen pelvis w con* [id number] 06/10/2020 3:05 PM RADIATION DOSE METRICS: Total DLP (mGy-cm): 683.66 FINDINGS: Lungs: Mild pulmonary edema. Heart: Marked cardiac enlargement. Mediastinal space: There is a small sliding-type hiatal hernia. Liver: The liver is normal. Gallbladder and bile ducts: The gallbladder is absent. Pancreas: There is mild atrophy of the pancreas. Spleen: The spleen is unremarkable. Adrenal glands: The adrenal glands are unremarkable. Kidneys and ureters: Marked bilateral renal vascular calcification. No hydronephrosis. Solitary nonobstructive stone in the left lower pole collecting system. Normal ureters. Stomach and bowel: The stomach is unremarkable. The small bowel is nondilated. There is pancolonic diverticulosis. There is no sign of diverticulitis. Appendix: The appendix is not definitively identified, although there are no secondary signs of appendicitis. Intraperitoneal space: There is no free air or significant intraperitoneal free fluid. Vasculature: There is severe aortic atherosclerotic disease. Lymph nodes: There is no lymphadenopathy in the retroperitoneum, mesentery, pelvis or inguinal regions. Urinary bladder: The Carr catheter is appropriately positioned with the bulb and tip within the bladder lumen. Reproductive: The uterus is absent. There is no adnexal mass or large cyst. Bones/joints: There is moderate degenerative disease in the lumbar spine. The pelvis and hips are intact. Soft tissues: The abdominal wall is intact. CT/CT abdomen pelvis con [id number] IMPRESSION: 1. No acute intra-abdominal findings. 2. Cardiac enlargement and mild pulmonary edema. 3. Incidental findings above. Radiation Dose CTDIVOL = (mGy): DLP = 683.66 (mGy-cm)
--- NOTE | 2020-07-22 01:46 | USCV_ITS ---
Nehal Jessica Age: 74 Gender: F : 1945 Exam Date: 07/22/2020 09:38 Ordering Phys: Ismael Rainey MD Technologist: Jessa Yan Exam Location: [facility] [place] Indication: SOB BP: 138 / 100 HR: 96 Rhythm: Sinus Technical Quality: Technically difficult study MEASUREMENTS (Male / Female) Normal Values 2D ECHO LV Diastolic Diameter PLAX 4.8 cm 4.2 - 5.9 / 3.9 - 5.3 cm LV Systolic Diameter PLAX 3.7 cm LV Chamber Size 4.3 cm IVS Diastolic Thickness 1.3 cm 0.6 - 1.0 / 0.6 - 0.9 cm IVS Systolic Thickness 1.5 cm LVPW Diastolic Thickness 1.0 cm 0.6 - 1.0 / 0.6 - 0.9 cm LVPW Systolic Thickness 1.5 cm RV Chamber Size 3.0 cm LVOT Diameter 2.5 cm LV Ejection Fraction 2D Teich 47.3 % LA Diameter 4.5 cm LA Width 3.5 cm LA Height 4.8 cm RA Width 3.8 cm RA Height 5.3 cm M-MODE LV Diastolic Diameter MM 5.7 cm 4.2 - 5.9 / 3.9 - 5.3 cm LV Systolic Diameter MM 4.3 cm LV Ejection Fraction MM Teich 47.7 % IVS Diastolic Thickness MM 1.0 cm 0.6 - 1.0 / 0.6 - 0.9 cm IVS Systolic Thickness MM 0.9 cm LVPW Diastolic Thickness MM 1.3 cm 0.6 - 1.0 / 0.6 - 0.9 cm LVPW Systolic Thickness MM 1.7 cm RV Diastolic Diameter MM 2.5 cm Aortic Annulus Diameter 2.8 cm LA Ao Ratio MM 1.9 MV E Point Septal Separation 0.9 cm DOPPLER AV Peak Velocity 87.0 cm/s LVOT Peak Velocity 72.0 cm/s AV Area Cont Eq vti 4.4 cm squared AV Area Cont Eq pk 4.2 cm squared MV Area PHT 6.3 cm squared MV E' Velocity 118.0 cm/s TR Peak Velocity 218.0 cm/s TR Peak Gradient 19.0 mmHg TV Peak E Velocity 43.0 cm/s Right Atrial Pressure 8.0 mmHg Pulmonary Artery Systolic Pressu 27.0 mmHg FINDINGS Left Ventricle Mildly dilated left ventricular cavity. Moderately decreased left ventricular systolic function. Left ventricular ejection fraction is estimated at 30 %. There is severe hypokinesis of entire anterior, basal to mid anteroseptal, basal to mid inferoseptal, apical septal , apical lateral and apical wood. Right Ventricle Normal right ventricular size and mildly decreased systolic function. There is hypokinesis of right ventricular apex. Right ventricular systolic pressure 27 mmHg. Pacemaker wire visualized in the right ventricle. Right Atrium Mildly increased right atrial size. Right atrial pressure estimated at 3 mm Hg. Left Atrium Moderately increased left atrial size. Mitral Valve Moderate mitral annular calcification. Mildly thickened mitral valve. No mitral valve stenosis. Mild mitral valve regurgitation. Aortic Valve Structurally normal trileaflet aortic valve. No aortic valve stenosis. No aortic valve regurgitation. Tricuspid Valve Structurally normal tricuspid valve. Trace to mild tricuspid valve regurgitation. Pulmonic Valve Pulmonic valve not well visualized. Pericardium No pericardial effusion. Aorta Normal size aortic root. Normal sized inferior vena cava. CONCLUSIONS 1. Mildly dilated left ventricular cavity. Moderately decreased left ventricular systolic function. Left ventricular ejection fraction is estimated at 30 %. There is severe hypokinesis of entire anterior, basal to mid anteroseptal, basal to mid inferoseptal, apical septal , apical lateral and apical wood. 2. Normal right ventricular size and mildly decreased systolic function. There is hypokinesis of right ventricular apex. 3. Mild mitral valve regurgitation. 4. Pulmonary artery pressure estimated at 27 mm Hg. 5. When compared to previous echocardiogram dated 01/19/2018, there id drop in LV function and there in RWMA. Martha Lopez MD (Electronically Signed) Final Date: 22 July 2020 16:53 S
[2020-07-22] MEDS: bumetanide 0.25 mg/mL SDV 10 mL 1 MG IV ×2 (02:35→13:43)
[2020-07-22] MEDS: cefTRIAXone 1,000 MG in sodium chloride 0.9% (plus) 50 ML 100 MG IV (02:35)
[2020-07-22] MEDS: heparin drip 25,000 UNIT/500 ML PREMIX 17 UNIT IV (03:19)
[2020-07-22] MEDS: heparin 5,000 unit/mL INJ 1 mL IV (03:19)
--- NOTE | 2020-07-22 06:42 | PC.NURSE ---
PT CAME TO ROOM 106 FROM ED VIA BED. PT HAD N/V/D UPON ARRIVAL. PT PULLING AT IV AND CATHETER. DR PUT ON 1:1 ORDER. ZYPREXA 5MG WAS ORDERED. PT DID CALM DOWN SIGNIFICANTLY. PT REFUSED ORAL MEDS AND DR WAS MADE AWARE. PT HAS TEMPERATURE OF 102.[address] NOTIFIED. RECTAL TYLENOL WAS ORDERED. WILL CONTINUE TO MONITOR.
[2020-07-22 07:13] LABS: Glucose Point of Care 290 mg/dL (70-110)
[2020-07-22] MEDS: azithromycin 500 MG in sodium chloride 0.9% 250 ML 250 MG IV (08:44)
[2020-07-22 10:38] LABS: Partial Thromboplastin Time 58.6 SECONDS (23.9-36.7)
[2020-07-22 10:46] LABS: Influenza A by IFA Negative (Negative); Influenza B by IFA Negative (Negative)
[2020-07-22 10:58] LABS: Glucose Point of Care 172 mg/dL (70-110)
--- NOTE | 2020-07-22 11:55 | PC.CHAP ---
Pastoral Care Encounter/Spiritual Assessment Type of Contact [] Declined cat sitter visit [] Patient/Family/Request visit [] Outpatient visit [] Follow-up visit [] Physician referral [] Code/Alert [X] Routine visit [] Staff referral [] Actively dying [] Patient sleeping [] Family support [] [] Out of room [] Palliative care [] [] Receiving care in room [] Pre-surgical visit [] Trauma [] Long length of stay [] ICU visit [] Other: Relational/Emotional Strength [] Patient feels connected with others/family/visitors/staff [] Distress [] Loneliness/isolation [] Abandonment Spirituality of Patient [] Person of Emma [] Attends Religion of their Emma [] Believes in Prayer [] Reads Bible or Christianity materials [] There are Spiritual issues to be addressed 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 Interventions [] Prayer [] Active listening [] Non-anxious presence [] Spiritual/emotional support [] Crisis/trauma care [] Spiritual counseling [] Bereavement support [] Provided bereavement packet [] Provided Bible/devotional materials [] Provided toy/stuffed animal, coloring book to patient or family member [] Provided Communion [] Anointing/[place] [] Salvation [] Completed spiritual assessment [] Other: Impact on Illness or Injury [] Angry [] Fearful [] Anxious [] Often cries [] Exhaustion [] Unable to work [] Unable to attend hindu [] Unable to walk/stand [] Unable to read [] Unable to drive [] Unable to eat/drink [] Unable to sleep [] Unable to be with family [] Patient intubated [] Other: Summary Time spent with patient
--- NOTE | 2020-07-22 12:34 | CTR_ITS ---
PROCEDURE INFORMATION: Exam: CT Chest Without Contrast Exam date and time: 07/22/2020 3:02 PM Age: 74 years old Clinical indication: Cough and fever and shortness of breath; Prior surgery; Surgery date: 6+ months; Surgery type: Pacer; Patient HX: Lethargy, fever, cough, SOB; Additional info: Pneumonia, evaluate effusion TECHNIQUE: Imaging protocol: Computed tomography of the chest without contrast. Radiation optimization: All CT scans at this facility use at least one of these dose optimization techniques: automated exposure control; mA and/or kV adjustment per patient size (includes targeted exams where dose is matched to clinical indication); or iterative reconstruction. COMPARISON: CR XR chest 1V portable [id number] 07/21/2020 9:32 PM RADIATION DOSE METRICS: Total DLP (mGy-cm): 307.19 FINDINGS: Lungs: There is mild ground-glass opacification in the right lower lobe of the lung. There is mild interstitial lung disease in the left lower lobe of the lung. There is probable atelectasis/scar in the lungs. No lung mass or significant consolidation. Pleural space: Unremarkable. No pneumothorax. No pleural effusion. Heart: Cardiomegaly is identified. No pericardial effusion. Mediastinal space: There is a small hiatal hernia. Aorta: Unremarkable. No aortic aneurysm. Lymph nodes: Unremarkable. No enlarged lymph nodes. Bones/joints: Degenerative change is identified in the spine. There is no evidence for acute fracture or malalignment. Soft tissues: Unremarkable. CT/CT chest wo con [id number] IMPRESSION: There is mild ground-glass opacification in the right lower lobe of the lung suggestive of mild infection.Clinical correlation is advised. Radiation Dose CTDIVOL = (mGy): DLP = 307.19 (mGy-cm)
[2020-07-22 13:33] LABS: SARS Covid-2 Antigen Negative (Negative)
--- NOTE | 2020-07-22 13:35 | PM.PN ---
Subjective Subjective: Interval history: Patient noted to be obtunded, lethargic, does not wake up to calling name or on painful stimulus. She does wince and move her right lower and upper extremities with painful stimulus but otherwise does not respond. Per sitter at her bedside, earlier she did respond yes to being called Jessica. Patient has been having a temperature of 101.7 since overnight. Medications: Reviewed: Yes Vitals/I&O/Wt Last Vital Signs Temp 101.7 F H 07/22/20 08:00 Pulse 100 07/22/20 12:00 Resp 23 H 07/22/20 12:00 BP 125/64 07/22/20 12:00 Pulse Ox 96 07/22/20 10:14 07/21/20 07/22/20 07/22/20 22:59 06:59 14:59 Output Total 1900 / 1900 Balance -1900 / -1900 Weight last 48 hrs Weight 60.237 kg Weight 56.699 kg Physical Exam Narrative: EXAM NARRATIVE: GENERAL: Obtunded, lethargic, does not respond to calling name or painful stimulus. Does move her right arm and leg. Does not open eyes. HEENT: Normocephalic, atraumatic, PERRLA. [] CHEST: Clear to auscultation bilaterally anteriorly [] CVS: S1, S2 normal. No murmur, rubs, gallops. Peripheral pulses palpable. [] ABDOMEN: Soft, nontender. Nondistended. Bowel sounds heard. [] NEUROVASCULAR: Unable to assess Urinary Catheter Management^: Carr: Cath Placed During This Visit: yes Reason for Continuing Indwelling Catheter: Acute Urinary Retention or Obstruction Urinary Catheter Date of Insertion: 07/21/20 Urinary Catheter Time of Insertion: 23:21 Data : 07/21/20 20:55 07/21/20 20:55 Micro: Microbiology 07/22/20 12:23 Blood Culture - Preliminary Blood SPECIMEN COLLECTED 07/22/20 09:50 Blood Culture - Preliminary Blood SPECIMEN COLLECTED A&P Assessment and plan (1) Altered mental status: CT head with probable prominent chronic ischemic changes. No acute events. Given presentation with fever and altered mental status with patient being encephalopathic at this present time can, cannot exclude the possibility of meningoencephalitis. Alternate etiologies for metabolic encephalopathy from pneumonia. Increase ceftriaxone dosing from 1 g daily to 2 g IV every 12 hours. Add vancomycin empirically. Start acyclovir 10 mg/kg every 8 hours for meningitis dosing. Unable to get LP at this present time as patient is on heparin drip and having ongoing NSTEMI. Interruption of anticoagulation not recommended at this time. We will treat empirically and monitor for improvement. CT chest to evaluate for pneumonia. UA not consistent with UTI TSH within normal range Status: Acute Qualifiers: Altered mental status type: unspecified Qualified Code(s): R41.82 - Altered mental status, unspecified (2) Acute respiratory failure with hypoxia: Overnight patient was thought to have flash pulmonary edema related to A. fib with RVR. Her heart rate is much better controlled now. She was started on Bumex and metolazone. She is clinically euvolemic today. Stop diuretics today. Will use Lasix as needed if needed. Echocardiogram taken and pending at this time. Alternately hypoxia could be related to pneumonia, CT chest for further characterization today. Continue antibiotic coverage as above. Covid antigen test at this afternoon is negative. Covid PCR was sent out overnight and remains pending at this time. Check urine bacterial and Legionella antigens. Status: Acute (3) Pulmonary edema: Management as above Status: Acute Qualifiers: Chronicity: acute Qualified Code(s): J81.0 - Acute pulmonary edema (4) Atrial fibrillation with RVR: Heart rate is much better controlled right now. Patient is unable to take any p.o. medications because of her mental status. Switch metoprolol to IV 5 mg every 4 hours scheduled. Status: Acute (5) NSTEMI (non-ST elevated myocardial infarction): Overnight patient had a significant 2-hour delta of 50. However it appears that due to some lab in IT errors, the 6-hour troponin ended up being canceled. Stat troponin has been ordered now to follow-up on the delta. While this could be related to A. fib with RVR and demand ischemia from CHF, will need to follow serial troponins and indicative of NSTEMI. Currently patient is on a heparin drip due to past history of diverticular bleeding. Continue the same. EKG is with paced rhythm. Echocardiogram taken and pending. Status: Acute (6) Alzheimer disease: Unknown underlying dementia, with more subacute worsening recently. Status: Chronic Qualifiers: Alzheimer's disease onset: late-onset Dementia behavioral disturbance: without behavioral disturbance Qualified Code(s): G30.1 - Alzheimer's disease with late onset; F02.80 - Dementia in other diseases classified elsewhere without behavioral disturbance (7) Diastolic heart failure: Status: Chronic Qualifiers: Heart failure chronicity: chronic Qualified Code(s): I50.32 - Chronic diastolic (congestive) heart failure (8) Diabetes mellitus: Continue insulin sliding scale Status: Chronic Qualifiers: Diabetes mellitus type: type 2 Diabetes mellitus watermelon harvesting supervisor insulin use: without watermelon harvesting supervisor use Diabetes mellitus complication status: without complication Qualified Code(s): E11.9 - Type 2 diabetes mellitus without complications (9) Hyperlipidemia: Status: Chronic Qualifiers: Hyperlipidemia type: unspecified Qualified Code(s): E78.5 - Hyperlipidemia, unspecified (10) Hypertension: Blood pressure currently well controlled Status: Chronic Qualifiers: Hypertension type: essential hypertension Qualified Code(s): I10 - Essential (primary) hypertension Attestations Medical Necessity Statement*: Patient needs ongoing admission for evaluation of fever, possible meningoencephalitis, altered mental status, need for IV heparin and diuresis. Coding Level of Care Code Acute Fire Technology Instructor for [facility] Diagnoses Altered mental status R41.82 Altered mental status type: unspecified Acute respiratory failure with hypoxia J96.01 Pulmonary edema J81.0 Chronicity: acute Atrial fibrillation with RVR I48.91 NSTEMI (non-ST elevated myocardial infarction) I21.4 Alzheimer disease G30.1; F02.80 Alzheimer's disease onset: late-onset Dementia behavioral disturbance: without behavioral disturbance Diastolic heart failure I50.32 Heart failure chronicity: chronic Diabetes mellitus E11.9 Diabetes mellitus type: type 2 Diabetes mellitus watermelon harvesting supervisor insulin use: without watermelon harvesting supervisor use Diabetes mellitus complication status: without complication Hyperlipidemia E78.5 Hyperlipidemia type: unspecified Hypertension I10 Hypertension type: essential hypertension
[2020-07-22 14:40] LABS: Partial Thromboplastin Time 89.5 SECONDS (23.9-36.7)
[2020-07-22] MEDS: metoprolol tartrate 1 mg/1 mL SDV 5 mL 5 MG IV ×3 (14:43→22:16)
[2020-07-22] MEDS: cefTRIAXone 2,000 MG in sodium chloride 0.9% (plus) 50 ML 100 MG IV (14:43)
[2020-07-22] MEDS: acyclovir 500 MG in sodium chloride 0.9% (100 ml) 100 ML 110 MG IV (14:44)
[2020-07-22 14:56] LABS: Troponin T (5th) Once 477 ng/L (0-10)
[2020-07-22] MEDS: vancomycin 1,000 MG in sodium chloride 0.9% 250 ML 250 MG IV (15:58)
--- NOTE | 2020-07-22 17:29 | ECG_ITS ---
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 Measurements Intervals [place] Rate: 76 P: [place]: -1 QRS: -79 QRSD: 101 T: -79 QT: 443 QTc: 498 Interpretive Statements ATRIAL FIBRILLATION WITH DEMAND PACING MARKED LEFT AXIS DEVIATION [QRS AXIS < -30] ST DEVIATION AND MODERATE T-WAVE ABNORMALITY, CONSIDER ANTEROLATERAL ISCHEMIA [-0.1+ mV T WAVE IN V3-V6] Compared to ECG 07/21/2020 22:39:21 T-wave abnormality now present Possible ischemia now present ST (T wave) deviation no longer present Electronically Signed On 07-24-2020 8:08:34 TEAM TRUCK DRIVER by Martha Lopez M.D. [email or web address]/store/[id number]
--- NOTE | 2020-07-22 17:30 | ECG_ITS ---
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 Measurements Intervals [place] Rate: 114 P: [place]: -1 QRS: 261 QRSD: 98 T: -59 QT: 394 QTc: 545 Interpretive Statements Atrial fibrillation with frequent PVC's and runs of NSVT LEFT AXIS DEVIATION ST DEVIATION AND MARKED T-WAVE ABNORMALITY, CONSIDER ANTEROLATERAL ISCHEMIA ST DEVIATION AND MODERATE T-WAVE ABNORMALITY, CONSIDER INFERIOR ISCHEMIA [-0.1+ Compared to ECG 07/21/2020 22:39:21 Indeterminate axis now present T-wave abnormality now present Possible ischemia now present ST (T wave) deviation no longer present Electronically Signed On 07-24-2020 8:10:[address] LIGHT INSPECTOR by Martha Lopez M.D. [email or web address]/store/[id number] f
--- NOTE | 2020-07-22 18:06 | CTR_ITS ---
PROCEDURE INFORMATION: Exam: CT Head Without Contrast Exam date and time: 07/22/2020 6:30 PM Age: 74 years old Clinical indication: Altered mental status/memory loss; Confusion or disorientation; Patient HX: AMS TECHNIQUE: Imaging protocol: Computed tomography of the head without contrast. Radiation optimization: All CT scans at this facility use at least one of these dose optimization techniques: automated exposure control; mA and/or kV adjustment per patient size (includes targeted exams where dose is matched to clinical indication); or iterative reconstruction. COMPARISON: CT head wo con* [id number] 07/21/2020 9:33 PM RADIATION DOSE METRICS: Total DLP (mGy-cm): 1479.21 FINDINGS: Brain: Moderate white matter disease and volume loss are identified. There is no acute infarct or edema. There is encephalomalacia in the left parietooccipital lobe. No hemorrhage. Cerebral ventricles: No ventriculomegaly. Bones/joints: Unremarkable. No acute fracture. Paranasal sinuses: Visualized sinuses are unremarkable. No fluid levels. Mastoid air cells: Visualized mastoid air cells are well aerated. Soft tissues: Unremarkable. CT/CT head wo con* [id number] IMPRESSION: There are no acute concerning abnormalities. Radiation Dose CTDIVOL = (mGy): DLP = 1479.21 (mGy-cm)
[2020-07-22 18:11] LABS: ABG PCO2 40.8 mmHg (35-45); ABG PH Result 7.52 (7.35-7.45); Arterial Blood Gas Hematocrit 34.1 % (37-47); Base Excess ABG 9.5 mmol/L (-2.0-2.0); Blood Gas Allen Test Pos; Blood Gas Operator Identificat AMH; Blood Gas Sample Site Radial, right; Blood Gas Sample Type Arterial; HCO3 ABG 33.2 mmol/L (22-26); Oxygen Device NC; PO2 ABG 93.3 mmHg (80.0-100.0)
[2020-07-22] MEDS: magnesium sulfate premix 2 GM/50 ML PIGGYBACK IV (18:21)
--- NOTE | 2020-07-22 18:34 | ECG_ITS ---
[facility] Test Date: 2020-07-22 Pat Name: Jessica Calvert Department: Room: [facility] Gender: Female Documentation Specialist: : 1945 Requested By: Braulio Evans Order Number: [id number] Lisa MD: Martha Lopez M.D. Measurements Intervals [place] Rate: 119 P: [place]: -1 QRS: -84 QRSD: 152 T: 122 QT: 318 QTc: 448 Interpretive Statements ATRIAL FIBRILLATION WITH RAPID VENTRICULAR RESPONSE WITH FREQUENT VENTRICULAR PREMATURE COMPLEXES AND NSVT'S ST DEPRESSION, CONSIDER INFEROLATERAL ISCHEMIA Compared to ECG 07/21/2020 22:39:21 Intraventricular conduction delay now present Myocardial infarct finding now present Left-axis deviation no longer present ST (T wave) deviation no longer present Electronically Signed On 07-24-2020 8:15:45 PROCESS CONTROL OPERATOR by Martha Lopez M.D. [email or web address].[email or web address]. [facility].[employer]/store/NU/[id number] keiry
--- NOTE | 2020-07-22 19:01 | PC.NURSE ---
Addendum entered by Sharyn Freedman RN 07/22/20 19:42: HEATH Garza and warehouse foreman notified of patient being on COVID r/o precautions. HEATH Garza stated that she can visit for only a short period of time if she is aware of the risks of being in a COVID r/o room and that she will have to wear proper PPE. Xiomy (family) was called and notified that test results for COVID are currently pending and that there is a risk of her nahid COVID from visiting the patient. ICU charge nurse and Xiomy both notified that Xiomy will have to wear proper PPE (gown, mask, gloves, ect.) while visiting. Xiomy verbalized understanding of risks. Original Note: Dr. Bartholomew called per request of family, Xiomy. Xiomy called stating I want to be able to come see her. Dr. Bartholomew approved Xiomy to come see her for an hour. HEATH Garza and warehouse foreman notified. Xiomy notified that she is able to come see her for an hour and that she must come in through ED entrance per HEATH Garza.
--- NOTE | 2020-07-22 19:05 | XRR_ITS ---
PROCEDURE INFORMATION: Exam: XR Chest, 1 View Exam date and time: 07/22/2020 7:54 PM Age: 74 years old Clinical indication: Device placement; Ng tube; Additional info: Post nasogastric tube insertion TECHNIQUE: Imaging protocol: XR of the chest Views: 1 view. COMPARISON: CT chest con [id number] 07/22/2020 3:29 PM FINDINGS: Tubes, catheters and devices: There is a nasogastric tube whose tip is in the gastric antrum and proximal duodenum. There is a dual lead pacemaker. Lungs: Unremarkable. No consolidation. Pleural space: Unremarkable. No pleural effusion. No pneumothorax. Heart/Mediastinum: Cardiomegaly is identified. Bones/joints: Unremarkable. XR/XR chest 1V portable [id number] IMPRESSION: There is a nasogastric tube whose tip is in the gastric antrum and proximal duodenum.
[2020-07-22 19:09] LABS: Basophils # 0.1 10^3/uL (0.0-0.1); Basophils % 0.4 %; Hematocrit 34.2 % (37.0-47.0); Hemoglobin 10.9 g/dL (11.5-15.3); Lymphocytes # 1.3 10^3/uL (0.8-4.8); Lymphocytes % 9.6 %; Mean Corpuscular HGB Conc 31.9 g/dL (30.0-36.0); Mean Corpuscular Hemoglobin 28.5 pg (28.0-34.0); Mean Corpuscular Volume 89.3 fL (81-99); Monocytes # 0.8 10^3/uL (0.2-0.9); Monocytes % 6.2 %; Neutrophils # 11.26 10^3/uL (1.8-7.7); Neutrophils % 83.6 %; Nucleated Red Blood Cells % 0 %; Platelet Count 328 10^3/cmm (130-400); Red Blood Count 3.83 10^6/uL (4.1-5.3); Red Cell Distribution Width 14.3 % (12.1-15.1); White Blood Count 13.5 10^3/uL (4.0-10.0)
[2020-07-22 19:11] LABS: Lactic Sepsis W/Reflex 1.3 mmol/L (0.5-2.2)
[2020-07-22 19:12] LABS: Alanine Aminotransferase 12 U/L (0-33); Albumin Level 3.9 g/dL (3.5-5.2); Alkaline Phosphatase 92 IU/L (35-105); Anion Gap 16.6 (5-19); Aspartate Amino Transferase 39 U/L (0-32); Blood Urea Nitrogen 16 mg/dL (8-23); Calcium 8.8 mg/dL (8.5-10.5); Carbon Dioxide 31 mmol/L (22-29); Chloride 90 mmol/L (98-107); Globulin 3.1 g/dL (1.3-4.6); Glucose 234 mg/dL (65-115); Magnesium 2.1 mg/dL (1.7-2.3); Osmolality Calculated 287 mOsm/kg (285-295); Potassium 3.6 mmol/L (3.5-5.1); Sodium 134 mmol/L (136-145); Total Bilirubin 0.5 mg/dL (0.15-1.2)
--- NOTE | 2020-07-22 19:19 | PC.NURSE ---
NGT inserted on left nares per Verbal order read back from Dr. Johansen. Auscultated gastric sound. tube verified in stomach. Tolerated well. Portable Xray post NGT insertion ordered for verification of placement.
[2020-07-22 19:21] LABS: Troponin T (5th) Once 428 ng/L (0-10)
--- NOTE | 2020-07-22 19:55 | PC.NURSE ---
Patient to ICU 5 at this time with CSU staff reporter x 3. AR RN
--- NOTE | 2020-07-22 20:15 | PC.NURSE ---
Physician Notified Dr. Bartholomew notified via phone at this time for clarification of amiodarone bolus and maintenance drip. Orders active on CSU and were discontinued upon transfer. Verbal orders for no amiodarone to be given via bolus or drip.
--- NOTE | 2020-07-22 20:39 | PC.NURSE ---
1600 pt noted to have change in rhythm on telemetry. Dr. Bartholomew was called. nurse went to check on patient. pt would not respond to this nurses sternal rub. pt was noted to have apnea during this rhythm change that kept occuring more and more frequently. another nurse was brought to room to assess patient too. temp of 102.5 axillary, rectal tylenol given. decision to call rapid response was made. rapid response team showed up, pt responded to sternal rub with opening one eye and moving right hand to chest. pt noted to have a blood sugar of 222. rapid response team left, dr bartholomew putting orders in. medications administered per orders. patient to be transferred to ICU. Cardiology consulted. pt taken to CT for head CT then transferred to ICU.
[2020-07-22] MEDS: acetaminophen 650 mg Supp PR (20:57)
--- NOTE | 2020-07-22 21:26 | PC.NURSE ---
Mental Status Pt is obtunded. Withdraws to painful stimuli. Bilateral pupils are equal but non-reactive. Patient will occasionally mumble what . Difficult to assess as patient is not following commands. Will intermittently bender helper hand when asked and only homeworker with the right hand. Right arm falls to bed with raised but attempts to keep arm up. Left arm falls straight to bed when lifted. Neuro exam is limited due to lethargy. Will notify physician.
[2020-07-22] MEDS: aspirin 300 mg Supp PR (21:30)
[2020-07-22 21:45] LABS: Glucose Point of Care 234 mg/dL (70-110)
[2020-07-22 22:19] LABS: Partial Thromboplastin Time 95.7 SECONDS (23.9-36.7)
--- NOTE | 2020-07-22 22:33 | PC.NURSE ---
Observed patient independently moving left arm. Pt opened eyes to verbal stimuli at this time and responded hey . Speech was mumbled. Pt continues to be drowsy. Starting to become intermittently restless. Observed fidgety/restless movements with all four extremities. Pupils equal and are reactive and sluggish at this time.
[2020-07-22 23:34] LABS: Procalcitonin 0.49 ng/mL (0-0.5)
[2020-07-23] VITALS (29 sets, daily range): BP systolic 84–168; BP diastolic 45–83; PULSE 57–76; RESP 15–25; TEMP 36.6–39.3; O2SAT 93–100
--- NOTE | 2020-07-23 00:06 | P.MISC_ITS ---
Miscellaneous Note Purpose of Documentation: INTERVENTIONAL CARDIOLOGY RECOMMENDATIONS Note: Interventional cardiology was called to assess patient for possible coronary angiography with possible intervention. Briefly patient with no known coronary artery disease, with pacemaker in place, presented to hospital with altered mental status. She has been febrile, somnolent and minimally responsive this evening. ECHO showed EF of 30% with regional wall motion abnormalities. She has afib and went in RVR in ER. Troponins have trended up significantly. Patient had no complaints of chest pain on presentation or afterwards. This evening, she had multiple runs of NSVT. EKG does not demonstrate ST elevations. Also per primary team, patient's code status changed to DNR/DNI today after discussion with family. She also has a history of GI bleed and she was taken off of an ticoagulation because of that. She is currently getting workup for possible meningitis or another source of infection and persistent fevers. She could have nstemi vs type 2 MA. However given her underlying ongoing infection with altered mental status, GI bleeding history, inability to take oral medications because of mental status, and code status, our recommendation is medical management for now, finding underlying infection source and treatment. Replace electrolytes as needed. Check COVID PCR. We can reassess the need for invasive procedure later. I spoke with patient's daughter over the p efrain and discussed the cardiac situation with her. She agreed with our plan to continue medical management for now and reevaluate the need for invasive procedure later.
[2020-07-23 00:52] LABS: NT Pro B Type Natriuretic Pept 66557 pg/mL (0-450)
[2020-07-23 01:49] LABS: Glucose Point of Care 222 mg/dL (70-110)
[2020-07-23] MEDS: atorvastatin 40 mg Tablet PO (01:57)
[2020-07-23] MEDS: metoprolol tartrate 1 mg/1 mL SDV 5 mL 5 MG IV ×3 (02:04→10:45)
[2020-07-23] MEDS: cefTRIAXone 2,000 MG in sodium chloride 0.9% (plus) 50 ML 100 MG IV ×2 (02:23→14:39)
[2020-07-23] MEDS: acyclovir 500 MG in sodium chloride 0.9% (100 ml) 100 ML 110 MG IV ×2 (02:35→14:53)
[2020-07-23 04:36] LABS: Basophils # 0.1 10^3/uL (0.0-0.1); Basophils % 0.5 %; Hematocrit 33.8 % (37.0-47.0); Hemoglobin 10.6 g/dL (11.5-15.3); Lymphocytes # 1.6 10^3/uL (0.8-4.8); Lymphocytes % 12.4 %; Mean Corpuscular HGB Conc 31.4 g/dL (30.0-36.0); Mean Corpuscular Hemoglobin 28.1 pg (28.0-34.0); Mean Corpuscular Volume 89.7 fL (81-99); Mean Platelet Volume 11.8 fL (7.4-10.4); Monocytes # 1.4 10^3/uL (0.2-0.9); Monocytes % 10.8 %; Neutrophils # 9.58 10^3/uL (1.8-7.7); Neutrophils % 76.1 %; Nucleated Red Blood Cells % 0 %; Platelet Count 315 10^3/cmm (130-400); Red Blood Count 3.77 10^6/uL (4.1-5.3); Red Cell Distribution Width 14.4 % (12.1-15.1); White Blood Count 12.6 10^3/uL (4.0-10.0)
[2020-07-23 04:49] LABS: Partial Thromboplastin Time 64.2 SECONDS (23.9-36.7)
[2020-07-23 04:55] LABS: Anion Gap 16.2 (5-19); Blood Urea Nitrogen 22 mg/dL (8-23); Calcium 8.8 mg/dL (8.5-10.5); Carbon Dioxide 32 mmol/L (22-29); Chloride 91 mmol/L (98-107); Glucose 147 mg/dL (65-115); Osmolality Calculated 288 mOsm/kg (285-295); Potassium 3.2 mmol/L (3.5-5.1); Sodium 136 mmol/L (136-145)
--- NOTE | 2020-07-23 09:13 | P.PN_ITS ---
Subjective Subjective: Interval history: Overnight events were noted. Echocardiogram with EF 30% and new wall motion abnormalities. Troponin increased all consistent with NSTEMI. Patient also having runs of nonsustained V. tach intermittently last evening. This morning she continues to be somnolent. Leukocytosis is at 12.6. CT of the chest showed some right lower lobe groundglass opacities concerning for infection. Lumbar puncture deferred because of ongoing heparin drip. Continues to have fever up to T-max of 103. Blood culture remains negative thus far. Medications: Reviewed: Yes Vitals/I&O/Wt Last Vital Signs Temp 100.5 F H 07/23/20 05:56 Pulse 70 07/23/20 08:57 Resp 18 07/23/20 08:57 BP 84/45 07/23/20 08:00 Pulse Ox 97 07/23/20 08:57 07/22/20 07/23/20 07/23/20 22:59 06:59 14:59 Intake Total 949.233 / 1199.233 150 / 1349.233 Output Total 900 / 2800 25 / 2825 Balance 49.233 / -1600.767 125 / -1475.767 Weight last 48 hrs Weight 60.237 kg Weight 56.699 kg Physical Exam Narrative: EXAM NARRATIVE: GEN: Somnolent, opens eyes to painful stimulus today, however that is the best response of heart from her this morning. Pacemaker pocket without signs of any overlying cellulitis. CVS: S1S2 N RS: CTA B/L Abd: Soft, nt/nd , bs+ Urinary Catheter Management^: Carr: Cath Placed During This Visit: yes Reason for Continuing Indwelling Catheter: Acute Urinary Retention or Obstruction Urinary Catheter Date of Insertion: 07/21/20 Urinary Catheter Time of Insertion: 23:21 Data : 07/23/20 04:23 07/23/20 04:23 Micro: Microbiology 07/23/20 04:23 Blood Culture - Preliminary Blood SPECIMEN COLLECTED 07/23/20 01:00 Blood Culture - Preliminary Blood SPECIMEN COLLECTED 07/22/20 12:23 Blood Culture - Preliminary Blood SPECIMEN COLLECTED 07/22/20 09:50 Blood Culture - Preliminary Blood SPECIMEN COLLECTED A&P Assessment and plan (1) Altered mental status: CT head with probable prominent chronic ischemic changes. No acute events. Given presentation with fever and altered mental status with patient being encephalopathic at this present time can, cannot exclude the possibility of meningoencephalitis. Alternate etiologies for metabolic encephalopathy from pneumonia. Continue ceftriaxone 2 g IV every 12 hours., Vancomycin renally dosed , acyclovir 10 mg/kg every 8 hours also renally dosed. Unable to get LP at this present time as patient is on heparin drip and having ongoing NSTEMI. Interruption of anticoagulation not recommended at this time. We will treat empirically and monitor for improvement. Hold off on adding ampicillin for now and monitor for improvement. Low clinical suspicion for the same. CT chest with right-sided groundglass infiltrates UA not consistent with UTI TSH within normal range Status: Acute Qualifiers: Altered mental status type: unspecified Qualified Code(s): R41.82 - Altered mental status, unspecified (2) Acute respiratory failure with hypoxia: Initially thought to have flash pulmonary edema related to A. fib with RVR and hypertensive urgency. Received metolazone and Bumex yesterday. Currently appears to be euvolemic. Holding diuretics Echocardiogram with new wall motion abnormalities, EF of 30%. Covid antigen negative, PCR pending Check urine bacterial and Legionella antigens. Status: Acute (3) Pulmonary edema: Management as above Status: Acute Qualifiers: Chronicity: acute Qualified Code(s): J81.0 - Acute pulmonary edema (4) Atrial fibrillation with RVR: Heart rate is much better controlled right now. Patient is unable to take any p.o. medications because of her mental status. Switch metoprolol to IV 5 mg every 4 hours scheduled. Status: Acute (5) NSTEMI (non-ST elevated myocardial infarction): As evidenced by significant troponin elevation and new wall motion abn ormalities and low EF on echocardiogram. Currently patient is on a heparin drip due to past history of diverticular bleeding. Continue the same. EKG is with paced rhythm. Appreciate cardiology recommendation Status: Acute (6) Alzheimer disease: Unknown underlying dementia, with more subacute worsening recently. Status: Chronic Qualifiers: Alzheimer's disease onset: late-onset Dementia behavioral disturbance: without behavioral disturbance Qualified Code(s): G30.1 - Alzheimer's disease with late onset; F02.80 - Dementia in other diseases classified elsewhere without behavioral disturbance (7) Diastolic heart failure: Status: Chronic Qualifiers: Heart failure chronicity: chronic Qualified Code(s): I50.32 - Chronic diastolic (congestive) heart failure (8) Diabetes mellitus: Continue insulin sliding scale Status: Chronic Qualifiers: Diabetes mellitus type: type 2 Diabetes mellitus terminal gauger supervisor insulin use: without terminal gauger supervisor use Diabetes mellitus complication status: without complication Qualified Code(s): E11.9 - Type 2 diabetes mellitus without complications (9) Hyperlipidemia: Status: Chronic Qualifiers: Hyperlipidemia type: unspecified Qualified Code(s): E78.5 - Hyperlipidemia, unspecified (10) Hypertension: Blood pressure currently well controlled Status: Chronic Qualifiers: Hypertension type: essential hypertension Qualified Code(s): I10 - Es sential (primary) hypertension Attestations Medical Necessity Statement*: Needs continued monitoring for ongoing sepsis, mental status NSTEMI Coding Level of Care Code Acute Director Of Strategic Sourcing for [facility] Diagnoses Altered mental status R41.82 Altered mental status type: unspecified Acute respiratory failure with hypoxia J96.01 Pulmonary edema J81.0 Chronicity: acute Atrial fibrillation with RVR I48.91 NSTEMI (non-ST elevated myocardial infarction) I21.4 Alzheimer disease G30.1; F02.80 Alzheimer's disease onset: late-onset Dementia behavioral disturbance: without behavioral disturbance Diastolic heart failure I50.32 Heart failure chronicity: chronic Diabetes mellitus E11.9 Diabetes mellitus type: type 2 Diabetes mellitus longterm insulin use: without longterm use Diabetes mellitus complication status: without complication Hyperlipidemia E78.5 Hyperlipidemia type: unspecified Hypertension I10 Hypertension type: essential hypertension
--- NOTE | 2020-07-23 09:37 | PM.CONSULT ---
Providers/Reason For Consult Consulting Physican/Specialty*: Dr. Lopez, cardiology Reason for Consult*: Elevated troponin Attending Physician: Yuliya Bartholomew MD Primary Care Provider: Mariajose Brice APN History of Present Illness History of Present Illness Jessica Calvert is a 74 year old female with past medical history of paroxysmal atrial fibrillation not on anticoagulation given history of diverticular bleed, hypertension, history of heart failure with preserved ejection fraction, Alzheimer's dementia, hypothyroidism, obstructive sleep apnea, history of CVA who presented to hospital on 22 July with complaints of altered mental status. She was brought to the hospital by her daughter with confusion decreased appetite nausea vomiting and a headache. Blood pressure was elevated systolically more than 200s and hence she was brought to the ER. CT head did not show any evidence of acute stroke. She did have a temperature of 102.6 and Covid test along with blood cultures were ordered for her. She received some Bumex on admission an echocardiogram was ordered. Patient troponin T was 28 that increased to 79 at 2 hours and troponin T next morning was 428. NT proBNP on admission was 2973 which increased to 66,557 the next day. Creatinine on admission was 1 which increased to 1.3. Given her altered mental status along with fever the concern for meningoencephalitis was high. Initially LP was considered however as she had been started on heparin drip she was treated empirically antibacterials and acyclovir. Her echocardiogram showed drop in left ventricular ejection fraction to about 30% with severe hypokinesis of anterior anteroseptal inferoseptal and apical wood. Late yesterday evening she started having, runs of nonsustained ventricular tachycardia I was consulted for further evaluation. She underwent abdominal and pelvic CT without any acute intra-abdominal pathology. CT chest was done which showed mild groundglass opacities in right lower lobe of lung suggestive of infection. Review of Systems General: Reports: ROS unobtainable due to mental status Meds/Allergies Home Medications and Allergies Home Medications Medication Instructions Recorded Confirmed Last Taken Type levothyroxine 50 mcg capsule 50 mcg PO DAILY 10/25/19 07/21/20 07/21/20 History magnesium oxide 400 mg PO DAILY 10/25/19 07/21/20 07/21/20 History multivitamin 1 tab PO DAILY 10/25/19 07/21/20 07/21/20 History omega-3 fatty acids 1,000 mg 1,000 mg PO DAILY 10/25/19 07/21/20 07/21/20 History capsule pravastatin 40 mg tablet 40 mg PO DAILY 10/25/19 07/21/20 07/20/20 History digoxin 125 mcg (0.125 mg) tablet 125 mcg PO DAILY #90 tab 02/21/20 07/21/20 07/21/20 Rx citalopram 10 mg PO DAILY 06/14/20 07/21/20 07/21/20 History rivastigmine tartrate 3 mg capsule See Rx Instructions .ROUTE 06/29/20 07/21/20 07/21/20 Rx .COMPLEX #60 cap Allergies Allergy/AdvReac Type Severity Reaction Status Date / Time codeine Allergy Unknown Unknown Verified 07/21/20 20:37 Current Medications Current Medications Generic Name Dose Route Start Last Admin Trade Name Freq PRN Reason Stop Dose Admin Acetaminophen 650 mg 07/22/20 16:00 07/22/20 16:00 Tylenol HI 650 mg ONCE PRN Administration FEVER Aspirin 300 mg 07/22/20 21:00 07/22/20 21:30 Aspirin HI 300 mg DAILY JACK Administration Atorvastatin Calcium 40 mg 07/22/20 01:46 07/23/20 01:57 Lipitor PO 40 mg Q24H JACK Administration Digoxin 125 mcg 07/22/20 09:00 07/22/20 08:45 Lanoxin PO Not Given DAILY [facility] Heparin Sodium (Beef Lung) 0 unit 07/22/20 01:46 07/22/20 03:19 Heparin IV 3,000 unit PRN PRN Administration Heparin weight-base protocol Protocol Heparin Sodium/Sodium Chloride 25,000 unit in 500 mls @ 0 mls/hr 07/22/20 01:46 07/22/20 22:41 Heparin Drip IV 9.7 unit/kg/hr .Q0M JACK 11 mls/hr Titration Protocol Per Protocol Ceftriaxone Sodium 2,000 mg/ 50 mls @ 100 mls/hr 07/22/20 14:30 07/23/20 02:53 Sodium Chloride IV Infused Q12H JACK Infusion Protocol Vancomycin HCl 1,000 mg/ 250 mls @ 250 mls/hr 07/22/20 16:00 07/22/20 16:58 Sodium Chloride IV Infused Q24H JACK Infusion Protocol Acyclovir 500 mg/ Sodium 110 mls @ 110 mls/hr 07/22/20 15:00 07/23/20 02:35 Chloride IV 110 mls/hr Q12H JACK Administration Acetaminophen 1,000 mg in 100 mls @ 400 mls/hr 07/22/20 18:00 07/23/20 02:11 Ofirmev IV 07/23/20 10:14 Infused Q8H JACK Infusion Insulin Aspart 0 unit 07/22/20 18:01 07/23/20 05:48 Novolog SUBCUT Not Given Q6H JACK Protocol Metoprolol Tartrate 5 mg 07/22/20 14:00 07/23/20 05:45 Metoprolol Tartrate IV 5 mg Q4H JACK Administration Ondansetron HCl 4 mg 07/22/20 00:46 07/22/20 01:23 Zofran IVP 4 mg Q6H PRN Administration NAUSEA AND VOMITING Rivastigmine Tartrate 3 mg 07/22/20 09:00 07/22/20 19:06 Exelon PO Not Given BID JACK PFSH Acute PFSH: Medical History Atrial fibrillation Depression Diabetes mellitus Diastolic heart failure Diverticulitis Fibromyalgia GI bleed Diverticulitis suggested on CT scan. History of CVA (cerebrovascular accident) Hyperlipidemia Hypertension Hypothyroidism -has hx of hypothyroidism -continue levothyroxine Lower gastrointestinal hemorrhage Neuropathy Sleep apnea unclear if cpap machine working Surgical History S/P appendectomy S/P cardiac pacemaker procedure S/P carpal tunnel release S/P cholecystectomy S/P gastric surgery S/P hernia repair S/P hysterectomy S/P knee replacement Family History Father Stroke Mother Diabetes Hypertension CAD (coronary artery disease) Social History Smoking and tobacco status: former smoker Quit status (tobacco): has quit using tobacco Year quit tobacco: 1986 Alcohol intake: never History of recent travel: No Vitals/I&O/Wt Last Vital Signs Temp 100.5 F H 07/23/20 05:56 Pulse 70 07/23/20 08:57 Resp 18 07/23/20 08:57 BP 84/45 07/23/20 08:00 Pulse Ox 97 07/23/20 08:57 07/22/20 07/23/20 07/23/20 22:59 06:59 14:59 Intake Total 949.233 / 1199.233 150 / 1349.233 Output Total 900 / 2800 25 / 2825 Balance 49.233 / -1600.767 125 / -1475.767 Weight last 48 hrs Weight 132 lb 12.8 oz Weight 125 lb Physical Exam Narrative: EXAM NARRATIVE: GENERAL: Averagely built and averagely nourished in no acute distress HEENT: Pupils equal round. No pallor or icterus. NECK: central trachea, no JVD. No carotid bruit. CARDIOVASCULAR SYSTEM: S1-S2 regular. No S3 or S4 present. No murmur rubs or gallops. RESPIRATORY SYSTEM: Chest clear to auscultation. No wheezes rhonchi or rubs heard. No use of accessory muscles. ABDOMEN: Soft, nontender and nondistended. Hyperactive bowel sounds present. EXTREMITIES: No cyanosis or clubbing. No edema. No signs of chronic venous insufficiency. 2+ peripheral pulses. Extremities warm to touch. SILL WORKER: Patient is altered. Intermittent episodes of agitation as per nursing staff. SKIN: Normal turgor and temperature. No breakdown, rash or nail changes noted. Urinary Catheter Management^: Carr: Cath Placed During This Visit: yes Reason for Continuing Indwelling Catheter: Acute Urinary Retention or Obstruction Urinary Catheter Date of Insertion: 07/21/20 Urinary Catheter Time of Insertion: 23:21 Data Micro: Micro: Microbiology 07/23/20 04:23 Blood Culture - Pr eliminary Blood SPECIMEN [facility] 07/23/20 01:00 Blood Culture - Pr eliminary Blood SPECIMEN [facility] 07/22/20 12:23 Blood Culture - Pr eliminary Blood SPECIMEN [facility] 07/22/20 09:50 Blood Culture - Pr eliminary Blood SPECIMEN [facility] Other Data: Attestation for Other Data: I personally reviewed and interpreted the following: Other data: Transthoracic echocardiogram 22 July 2020 CONCLUSIONS 1. Mildly dilated left ventricular cavity. Moderately decreased left ventricular systolic function. Left ventricular ejection fraction is estimated at 30 %. There is severe hypokinesis of entire anterior, basal to mid anteroseptal, basal to mid inferoseptal, apical septal , apical lateral and apical wood. 2. Normal right ventricular size and mildly decreased systolic function. There is hypokinesis of right ventricular apex. 3. Mild mitral valve regurgitation. 4. Pulmonary artery pressure estimated at 27 mm Hg. 5. When compared to previous echocardiogram dated 01/19/2018, there id drop in LV function and there in RWMA. A&P Assessment and plan (1) Altered mental status: There is concern for meningoencephalitis and she is being treated for the same. -Negative for influenza A and B. Rapid antigen for SARS-CoV-2 is negative. COVID-19 PCR pending. Status: Acute Qualifiers: Altered mental status type: unspecified Qualified Code(s): R41.82 - Altered mental status, unspecified (2) NSTEMI (non-ST elevated myocardial infarction): Type I NSTEMI is highly likely given new regional wall motion abnormality and drop in left ventricular systolic function. -Type II is a possibility, but less likely. Given her altered mental status and sepsis, continue with medical management. -Continue aspirin, Lipitor and metoprolol. She has been on heparin drip since admission. -The above plan was discussed in detail with patient's family as well by Dr. Evans. -I appreciate Dr. Evans's help in patient management. Status: Acute (3) Atrial fibrillation: On digoxin Status: Chronic Qualifiers: Atrial fibrillation type: longstanding persistent Qualified Code(s): I48.11 - Longstanding persistent atrial fibrillation (4) CHF (NYHA class III, ACC/AHA stage C): appears compensated presently Status: Acute (5) Hypertension: Status: Chronic Qualifiers: Hypertension type: essential hypertension Qualified Code(s): I10 - Essential (primary) hypertension (6) Diabetes mellitus: Status: Chronic Qualifiers: Diabetes mellitus type: type 2 Diabetes mellitus senior care insulin use: without senior care use Diabetes mellitus complication status: without complication Qualified Code(s): E11.9 - Type 2 diabetes mellitus without complications Additional A&P Information NSVT: Recommend keeping potassium more than 4 and magnesium more than 2. She received magnesium yesterday. Amiodarone ordered but not given. remains in paced rhythm presently. JEROME: likely pre renal, will f/u BUN/Cr with next blood draw. May need to administer IVF. Would need to consider feeding soon as well. S/p dual-chamber permanent pacemaker Hyperlipidemia History of diverticular bleed Alzheimer's dementia DNR/DNI Thank you for allowing me to participate in patient's care. viete feel free to call with questions or concerns Consult Attestations Medical Necessity Statement: Needs hospital stay for altered mental status and NSTEMI Coding Level of Care Code New Pt Acute Personal Lines Advisor for Chg Fwd Patient Type New History Comprehensive Exam Comprehensive Medical Decision Making High Complexity Diagnoses Altered mental status R41.82 Altered mental status type: unspecified NSTEMI (non-ST elevated myocardial infarction) I21.4 Atrial fibrillation I48.11 Atrial fibrillation type: longstanding persistent CHF (NYHA class III, ACC/AHA stage C) I50.9 Hypertension I10 Hypertension type: essential hypertension Diabetes mellitus E11.9 Diabetes mellitus type: type 2 Diabetes mellitus terminal operator insulin use: without senior care use Diabetes mellitus complication status: without complication Time Spent (min) 40
[2020-07-23] MEDS: aspirin 300 mg Supp PR (10:43)
[2020-07-23] MEDS: digoxin 125 mcg Tablet PO (10:43)
[2020-07-23 11:32] LABS: Glucose Point of Care 130 mg/dL (70-110)
[2020-07-23 11:35] LABS: Partial Thromboplastin Time 51.4 SECONDS (23.9-36.7)
[2020-07-23] MEDS: levothyroxine 100 mcg SDV 25 MCG IVP (11:38)
[2020-07-23] MEDS: aspirin 325 mg Tablet PO (13:32)
[2020-07-23] MEDS: potassium chloride premix 100 ML 25 MEQ IV (13:32)
[2020-07-23] MEDS: potassium chloride ER 10 mEq Tablet 20 MEQ PO (13:33)
[2020-07-23 14:37] LABS: Glucose Point of Care 154 mg/dL (70-110)
[2020-07-23 14:37] LABS: Glucose Point of Care 223 mg/dL (70-110)
[2020-07-23 14:37] LABS: Glucose Point of Care 560 mg/dL (70-110)
--- NOTE | 2020-07-23 14:42 | PC.NURSE ---
awake confused yelling at interval . not aware of situation some profanity used
[2020-07-23] MEDS: haloperidol inj 5 mg/mL INJ 1 mL 2.5 MG IVP (14:52)
--- NOTE | 2020-07-23 15:36 | PC.NURSE ---
now resting with eyes closed will open and yell occasionaaly
--- NOTE | 2020-07-23 15:51 | PC.NURSE ---
pt remains awake and cursing at interval and pulling at lines
[2020-07-23] MEDS: vancomycin 1,000 MG in sodium chloride 0.9% 250 ML 250 MG IV (17:04)
[2020-07-23] MEDS: metoprolol tartrate 25 mg Tablet PO (17:04)
[2020-07-23 19:44] LABS: Partial Thromboplastin Time 49.5 SECONDS (23.9-36.7)
[2020-07-23 19:47] LABS: Blood Urea Nitrogen 29 mg/dL (8-23)
[2020-07-23] MEDS: heparin 5,000 unit/mL INJ 1 mL IV (20:08)
[2020-07-23] MEDS: heparin drip 25,000 UNIT/500 ML PREMIX 13 UNIT IV (20:10)
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
[2020-07-24] VITALS (26 sets, daily range): BP systolic 112–180; BP diastolic 58–101; PULSE 70–109; RESP 1–28; TEMP 36.5–37.2; O2SAT 90–98
[2020-07-24 00:38] LABS: Glucose Point of Care 133 mg/dL (70-110)
[2020-07-24] MEDS: atorvastatin 40 mg Tablet PO ×2 (02:21→21:08)
[2020-07-24] MEDS: cefTRIAXone 2,000 MG in sodium chloride 0.9% (plus) 50 ML 100 MG IV ×2 (02:28→14:14)
[2020-07-24] MEDS: acyclovir 500 MG in sodium chloride 0.9% (100 ml) 100 ML 110 MG IV ×2 (02:29→15:55)
[2020-07-24 02:31] LABS: Basophils # 0.1 10^3/uL (0.0-0.1); Basophils % 0.6 %; Eosinophils # 0.1 10^3/uL (0.0-0.8); Eosinophils % 1.1 %; Hematocrit 36.9 % (37.0-47.0); Hemoglobin 11.2 g/dL (11.5-15.3); Lymphocytes # 1.9 10^3/uL (0.8-4.8); Mean Corpuscular HGB Conc 30.4 g/dL (30.0-36.0); Mean Corpuscular Hemoglobin 28.3 pg (28.0-34.0); Mean Corpuscular Volume 93.2 fL (81-99); Mean Platelet Volume 11.8 fL (7.4-10.4); Monocytes % 9.1 %; Neutrophils # 7.92 10^3/uL (1.8-7.7); Neutrophils % 71.9 %; Nucleated Red Blood Cells % 0 %; Platelet Count 271 10^3/cmm (130-400); Red Blood Count 3.96 10^6/uL (4.1-5.3); Red Cell Distribution Width 13.9 % (12.1-15.1)
[2020-07-24 02:56] LABS: Partial Thromboplastin Time 62.1 SECONDS (23.9-36.7)
[2020-07-24 03:01] LABS: Alanine Aminotransferase 11 U/L (0-33); Albumin Level 3.3 g/dL (3.5-5.2); Alkaline Phosphatase 72 IU/L (35-105); Anion Gap 14.8 (5-19); Aspartate Amino Transferase 43 U/L (0-32); Blood Urea Nitrogen 31 mg/dL (8-23); Calcium 8.7 mg/dL (8.5-10.5); Carbon Dioxide 30 mmol/L (22-29); Chloride 97 mmol/L (98-107); Globulin 2.9 g/dL (1.3-4.6); Glucose 109 mg/dL (65-115); Osmolality Calculated 293 mOsm/kg (285-295); Potassium 3.8 mmol/L (3.5-5.1); Sodium 138 mmol/L (136-145); Total Bilirubin 0.3 mg/dL (0.15-1.2); Total Protein 6.2 g/dL (6.6-8.7)
[2020-07-24 06:22] LABS: Glucose Point of Care 106 mg/dL (70-110)
[2020-07-24 07:01] LABS: Glucose Point of Care 116 mg/dL (70-110)
--- NOTE | 2020-07-24 09:07 | PM.PN ---
Subjective Subjective: Interval history: Mental status is significantly improved today. Patient is able to have a conversation with me. She is able to correctly tell me her name, date of , knows that she is in a hospital. Responds appropriately to most questions however does appear to have deficits in long-term memory. States she lives in [place]. She is able to swallow her medications this morning. Leukocytosis stable at 11. Creatinine stable at 1.3. Last fever of 100.5 yesterday at 6 AM. Blood culture remains negative to date. Covid PCR remains pending. Medications: Reviewed: Yes Vitals/I&O/Wt Last Vital Signs Temp 98.9 F 07/24/20 08:00 Pulse 78 07/24/20 08:00 Resp 19 H 07/24/20 08:00 BP 117/65 07/24/20 08:00 Pulse Ox 97 07/24/20 08:00 07/23/20 07/24/20 07/24/20 22:59 06:59 14:59 Intake Total 580.767 / 580.767 239.083 / 819.850 Output Total 375 / 400 500 / 900 Balance 205.767 / 180.767 -260.917 / -80.150 Physical Exam Narrative: EXAM NARRATIVE: GEN: Awake, alert and oriented, no acute distress, deficits in long-term memory at baseline CVS: S1S2 N RS: CTA B/L Abd: Soft, nt/nd , bs+ UPSTAIRS MAID: no focal neuro deficits Urinary Catheter Management^: Carr: Cath Placed During This Visit: yes Reason for Continuing Indwelling Catheter: Accurate Measurement of Urinary Output in Critically Ill Patients Urinary Catheter Date of Insertion: 07/21/20 Urinary Catheter Time of Insertion: 23:21 Data : 07/24/20 02:13 07/24/20 02:13 Micro: Microbiology 07/23/20 04:23 Blood Culture - Preliminary Blood NEGATIVE TO DATE 07/24/20 02:18 Blood Culture - Preliminary Blood SPECIMEN COLLECTED 07/24/20 02:13 Blood Culture - Preliminary Blood SPECIMEN COLLECTED 07/23/20 01:00 Blood Culture - Preliminary Blood NEGATIVE TO DATE 07/23/20 00:45 MRSA Culture - Final Nose 07/22/20 12:23 Blood Culture - Preliminary Blood NEGATIVE TO DATE 07/22/20 09:50 Blood Culture - Preliminary Blood NEGATIVE TO DATE A&P Assessment and plan (1) Altered mental status: This is now significantly improved. Patient is awake and alert this morning. Baseline confirmed with her daughter, who states that patient is usually able to have an appropriate conversation but has impairment in short and long-term memory. At a baseline she walks with the assistance of a cane or a walker and more recently has noted to be having an unsteady gait over the past few months. CT head with probable prominent chronic ischemic changes. No acute events. Given presentation with fever and encephalopathy , cannot exclude the possibility of meningoencephalitis. Alternate etiologies include metabolic encephalopathy from pneumonia, however this seems less likely as there is no gross consolidation on CT chest. There is very mild right lower lobe groundglass and patient severity of symptoms do not appear to correlate mild pneumonia at best. To cover for meningoencephalitis, continue ceftriaxone 2 g IV every 12 hours., Vancomycin renally dosed , acyclovir 10 mg/kg every 8 hours also renally dosed. If patient remains afebrile and clinically stable over the next 24 hours, will discontinue IV vancomycin. Likely treat patient with both ceftriaxone and acyclovir over the next 10 to 14 days empirically. Unable to get LP upon admission as patient is on heparin drip and having ongoing NSTEMI. Interruption of anticoagulation not recommended at this time. We will treat empirically and monitor for improvement. UA not consistent with UTI Blood cultures remain negative to date, pacemaker pocket site without any gross cellulitic changes. TSH within normal range Digoxin level within range Status: Acute Qualifiers: Altered mental status type: unspecified Qualified Code(s): R41.82 - Altered mental status, unspecified (2) Acute respiratory failure with hypoxia: Initially thought to have flash pulmonary edema related to A. fib with RVR and hypertensive urgency. Received metolazone and Bumex on day of admission. Currently appears to be euvolemic. Holding diuretics. Echocardiogram with new wall motion abnormalities, EF of 30%. Covid antigen negative, PCR pending Check urine bacterial and Legionella antigens. Status: Acute (3) Pulmonary edema: This is currently resolved. Status: Acute Qualifiers: Chronicity: acute Qualified Code(s): J81.0 - Acute pulmonary edema (4) Atrial fibrillation with RVR: Heart rate is controlled. Continue metoprolol and digoxin Status: Acute (5) NSTEMI (non-ST elevated myocardial infarction): As evidenced by significant troponin elevation and new wall motion abnormalities and low EF on echocardiogram. Patient was started on a heparin drip upon admission, change to Lovenox 60 mg every 24 hours, this is renally dosed for creatinine clearance between 27-30. If kidney function improves will likely need an increase in Lovenox dose. Appreciate cardiology recommendation No current plans for angiogram presently as patient is clinically stable. Status: Acute (6) Alzheimer disease: Known to have Alzheimer's dementia, at a baseline has deficits in short and long-term memory. Unsteady gait. Ambulates with cane and walker Status: Chronic Qualifiers: Alzheimer's disease onset: late-onset Dementia behavioral disturbance: without behavioral disturbance Qualified Code(s): G30.1 - Alzheimer's disease with late onset; F02.80 - Dementia in other diseases classified elsewhere without behavioral disturbance (7) Diastolic heart failure: Status: Chronic Qualifiers: Heart failure chronicity: chronic Qualified Code(s): I50.32 - Chronic diastolic (congestive) heart failure (8) Diabetes mellitus: Continue insulin sliding scale Status: Chronic Qualifiers: Diabetes mellitus type: type 2 Diabetes mellitus terminal make up operator insulin use: without terminal make up operator use Diabetes mellitus complication status: without complication Qualified Code(s): E11.9 - Type 2 diabetes mellitus without complications (9) Hyperlipidemia: Status: Chronic Qualifiers: Hyperlipidemia type: unspecified Qualified Code(s): E78.5 - Hyperlipidemia, unspecified (10) Hypertension: Blood pressure currently well controlled Status: Chronic Qualifiers: Hypertension type: essential hypertension Qualified Code(s): I10 - Essential (primary) hypertension (11) Sepsis: This was present on admission as evidenced by high-grade fevers, leukocytosis, altered mental status. Now improving. Status: Acute Qualifiers: Sepsis type: sepsis due to unspecified organism Sepsis acute organ dysfunction status: with acute organ dysfunction Severe sepsis acute organ dysfunction type: encephalopathy Severe sepsis shock status: without septic shock Qualified Code(s): A41.9 - Sepsis, unspecified organism; R65.20 - Severe sepsis without septic shock; G93.40 - Encephalopathy, unspecified Additional A&P Information Start dysphagia diet today, may advance as tolerated. Discontinued fluid restriction and patient encouraged oral hydration is currently on acyclovir which can lead to worsening JEROME. Holding off on IV fluids at this present time due to systolic heart failure with EF 30% and need for diuretics for flash pulmonary edema at admission PT OT eval DVT prophylaxis currently on full dose Lovenox Attestations Medical Necessity Statement*: Needs ongoing admission for sepsis with encephalopathy, need for iv abx ,NSTEMI on medical management Coding Level of Care Code Acute Development Writer for Chg Fwd Diagnoses Altered mental status R41.82 Altered mental status type: unspecified Acute respiratory failure with hypoxia J96.01 Pulmonary edema J81.0 Chronicity: acute Atrial fibrillation with RVR I48.91 NSTEMI (non-ST elevated myocardial infarction) I21.4 Alzheimer disease G30.1; F02.80 Alzheimer's disease onset: late-onset Dementia behavioral disturbance: without behavioral disturbance Diastolic heart failure I50.32 Heart failure chronicity: chronic Diabetes mellitus E11.9 Diabetes mellitus type: type 2 Diabetes mellitus terminal make up operator insulin use: without senior living use Diabetes mellitus complication status: without complication Hyperlipidemia E78.5 Hyperlipidemia type: unspecified Hypertension I10 Hypertension type: essential hypertension Sepsis A41.9; R65.20; G93.40 Sepsis type: sepsis due to unspecified organism Sepsis acute organ dysfunction status: with acute organ dysfunction Severe sepsis acute organ dysfunction type: encephalopathy Severe sepsis shock status: without septic shock
[2020-07-24 09:09] LABS: Partial Thromboplastin Time 51.8 SECONDS (23.9-36.7)
[2020-07-24] MEDS: digoxin 125 mcg Tablet PO (09:09)
[2020-07-24] MEDS: aspirin 325 mg Tablet PO (09:09)
[2020-07-24] MEDS: metoprolol tartrate 25 mg Tablet PO ×2 (09:09→18:06)
[2020-07-24] MEDS: levothyroxine 100 mcg SDV 25 MCG IVP (09:18)
[2020-07-24 10:06] LABS: Magnesium 2.5 mg/dL (1.7-2.3)
[2020-07-24] MEDS: enoxaparin 60 mg/0.6 mL Syringe SUBCUT (10:18)
[2020-07-24] MEDS: lidocaine 1% 5 ML in potassium chloride premix 100 ML 50 ML IV (10:20)
[2020-07-24 11:31] LABS: Glucose Point of Care 98 mg/dL (70-110)
[2020-07-24] MEDS: pantoprazole DR 40 mg Tablet PO (11:31)
[2020-07-24] MEDS: sodium chloride 0.9% (100 ml) 100 ML 10 ML (14:39)
[2020-07-24 16:00] LABS: Coronavirus Lab Test PTC Negative
[2020-07-24 16:20] LABS: Vancomycin Trough 12.2 ug/mL (10-15)
[2020-07-24] MEDS: vancomycin 1,000 MG in sodium chloride 0.9% 250 ML 250 MG IV (16:36)
[2020-07-24 18:13] LABS: Glucose Point of Care 182 mg/dL (70-110)
--- NOTE | 2020-07-24 18:54 | P.PN_ITS ---
Subjective Subjective: Interval history: She was seen sitting in her chair today. She seems more oriented and alert today. She is picking on her food presently and denies having any chest pain. No events on telemetry. Medications: Reviewed: Yes Medication Review Details: Current Medications Acetaminophen (Tylenol) 650 mg ID ONCE PRN PRN Reason: FEVER Last Admin: 07/22/20 16:00 Dose: 650 mg Documented by: Acetaminophen (Acetaminophen 325 Mg Tablet) 650 mg PO Q6H PRN PRN Reason: MILD PAIN Albuterol Sulfate (Albuterol) 2.5 mg INHALATION Q6H.RESPIRATORY PRN PRN Reason: SHORTNESS OF BREATH Aspirin (Aspirin) 325 mg PO DAILY JACK Last Admin: 07/24/20 09:09 Dose: 325 mg Documented by: Atorvastatin Calcium (Atorvastatin 40 Mg Tablet) 40 mg PO Q24H JACK Dextrose (D50w) 25 ml IVP ONCE PRN; Protocol PRN Reason: hypoglycemia protocol Dextrose (D50w) 50 ml IVP PRN PRN; Protocol PRN Reason: hypoglycemia protocol Digoxin (Lanoxin) 125 mcg PO DAILY JACK Last Admin: 07/24/20 09:09 Dose: 125 mcg Documented by: Enoxaparin Sodium (Enoxaparin 60 Mg/0.6 Ml Syringe) 60 mg SUBCUT Q24H JACK Last Admin: 07/24/20 10:18 Dose: 60 mg Documented by: Glucagon (Glucagen) 1 mg IM ONCE PRN; Protocol PRN Reason: Adult Acute Hypoglycemia Prot. Dextrose (D5w) 500 mls @ 100 mls/hr IV ONCE PRN; Protocol PRN Reason: Adult Acute Hypoglycemia Prot Ceftriaxone Sodium 2,000 mg/ (Sodium Chloride) 50 mls @ 100 mls/hr IV Q12H JACK; Protocol Last Infusion: 07/24/20 15:00 Dose: Infused Documented by: Vancomycin HCl 1,000 mg/ (Sodium Chloride) 250 mls @ 250 mls/hr IV Q24H JACK; P rotocol Last Infusion: 07/24/20 18:40 Dose: Infused Documented by: Acyclovir 500 mg/ Sodium (Chloride) 110 mls @ 110 mls/hr IV Q12H AJCK Last Infusion: 07/24/20 17:00 Dose: Infused Documented by: Insulin Aspart (Novolog) 0 unit SUBCUT Q6H JACK; Protocol Last Admin: 07/24/20 18:06 Dose: 4 unit Documented by: Levothyroxine Sodium (Levothyroxine 50 Mcg Tablet) 50 mcg PO DAILY [facility] Metoprolol Tartrate (Lopressor) 25 mg PO BID [facility] Last Admin: 07/24/20 18:06 Dose: 25 mg Documented by: Ondansetron HCl (Zofran) 4 mg IVP Q6H PRN PRN Reason: NAUSEA AND VOMITING Last Admin: 07/22/20 01:23 Dose: 4 mg Documented by: Pantoprazole Sodium (Pantoprazole Dr 40 Mg Tablet) 40 mg PO DAILY [facility] Last Admin: 07/24/20 11:31 Dose: 40 mg Documented by: Rivastigmine Tartrate (Exelon) 3 mg PO BID [facility] Last Admin: 07/24/20 18:06 Dose: 3 mg Documented by: Vitals/I&O/Wt Last Vital Signs Temp 98.4 F 07/24/20 12:00 Pulse 99 07/24/20 18:00 Resp 21 H 07/24/20 18:00 BP 164/97 07/24/20 18:00 Pulse Ox 98 07/24/20 17:00 07/24/20 07/24/20 07/24/20 06:59 14:59 22:59 Intake Total 239.083 / 819.850 405 / 405 660 / 1065 Output Total 500 / 900 200 / 200 200 / 400 Balance -260.917 / -80.150 205 / 205 460 / 665 Physical Exam Narrative: EXAM NARRATIVE: GENERAL: Averagely built and averagely nourished in no acute distress HEENT: Pupils equal round. No pallor or icterus. NECK: central trachea, no JVD. No carotid bruit. CARDIOVASCULAR SYSTEM: S1-S2 regular. No S3 or S4 present. No murmur rubs or gallops. RESPIRATORY SYSTEM: Chest clear to auscultation. No wheezes rhonchi or rubs heard. No use of accessory muscles. ABDOMEN: Soft, nontender and nondistended. Hyperactive bowel sounds present. EXTREMITIES: No cyanosis or edema. No signs of chronic venous insufficiency. 2+ peripheral pulses. Extremities warm to touch. EAR NOSE THROAT SURGEON: Patient is AWAKE. SKIN: Normal turgor and temperature. No breakdown, rash or nail changes noted. Urinary Catheter Management^: Carr: Cath Placed During This Visit: yes Reason for Continuing Indwelling Catheter: Accurate Measurement of Urinary Output in Critically Ill Patients Urinary Catheter Date of Insertion: 07/21/20 Urinary Catheter Time of Insertion: 23:21 Data : 07/24/20 02:13 07/24/20 02:13 Micro: Microbiology 07/23/20 20:10 Bacterial Antigens - Final Urine,Voided 07/23/20 20:10 Legionella Urinary Antigen - Final Urine Catheterized 07/23/20 04:23 Blood Culture - Preliminary Blood NEGATIVE TO DATE 07/24/20 02:18 Blood Culture - Preliminary Blood SPECIMEN COLLECTED 07/24/20 02:13 Blood Culture - Preliminary Blood SPECIMEN COLLECTED 07/23/20 01:00 Blood Culture - Preliminary Blood NEGATIVE TO DATE 07/23/20 00:45 MRSA Culture - Final Nose A&P Assessment and plan (1) Altered mental status: There is concern for meningoencephalitis and she is being treated for the same. -Negative for influenza A and B. Rapid antigen for SARS-CoV-2 is negative. COVID-19 PCR pending. -Mental status has improved significantly. Status: Acute Qualifiers: Altered mental status type: unspecified Qualified Code(s): R41.82 - Altered mental status, unspecified (2) NSTEMI (non-ST elevated myocardial infarction): Type I NSTEMI is highly likely given new regional wall motion abnormality and drop in left ventricular systolic function. -Type II is a possibility, but less likely. Given her altered mental status and sepsis, continue with medical management. -Continue aspirin, Lipitor and metoprolol. She has been transitioned to Lovenox. -I had a detailed discussion with patient's daughter Xiomy Goldstein. The decision was made to continue with medical management given her age and underlying Alzheimer's dementia. Status: Acute (3) Atrial fibrillation: High [id number] score and given her history of prior stroke last year; she would benefit from being on anticoagulation. -She does have history of diverticular global bleed but that was her only episode and she has had no recurrent bleeding and her hemoglobin has remained stable. -Recommend starting her on Eliquis 2.5 mg twice daily once Lovenox was discontinued. Status: Chronic Qualifiers: Atrial fibrillation type: longstanding persistent Qualified Code(s): I48.11 - Longstanding persistent atrial fibrillation (4) CHF (NYHA class III, ACC/AHA stage C): appears compensated presently. -Change to metoprolol succinate in a day or 2 and plan to add lisinopril based on renal function. Status: Acute (5) Hypertension: Status: Chronic Qualifiers: Hypertension type: essential hypertension Qualified Code(s): I10 - Essential (primary) hypertension (6) Diabetes mellitus: Status: Chronic Qualifiers: Diabetes mellitus type: type 2 Diabetes mellitus termite exterminator helper insulin use: without [place] [facility] use Diabetes mellitus complication status: without complication Qualified Code(s): E11.9 - Type 2 diabetes mellitus without complications Additional A&P Information NSVT: Recommend keeping potassium more than 4 and magnesium more than 2. JEROME: likely pre renal, will f/u BUN/Cr with next blood draw. May need to administer IVF. Would need to consider feeding soon as well. S/p dual-chamber permanent pacemaker Hyperlipidemia History of diverticular bleed Alzheimer's dementia DNR/DNI Thank you for allowing me to participate in patient's care. plesae feel free to call with questions or concerns Attestations Medical Necessity Statement*: As per primary team Time Spent in Patient Care: Greater than 35 minutes (>than 50% of time spent in counselling and/or direct pt care on unit) . Coding Level of Care Code Acute Copy Worker for g Fwd Diagnoses Altered mental status R41.82 Altered mental status type: unspecified NSTEMI (non-ST elevated myocardial infarction) I21.4 Atrial fibrillation I48.11 Atrial fibrillation type: longstanding persistent CHF (NYHA class III, ACC/AHA stage C) I50.9 Hypertension I10 Hypertension type: essential hypertension Diabetes mellitus E11.9 Diabetes mellitus type: type 2 Diabetes mellitus termite exterminator helper insulin use: without termite exterminator helper use Diabetes mellitus complication status: without complication
[2020-07-24 21:40] LABS: Glucose Point of Care 166 mg/dL (70-110)
[2020-07-25] VITALS (22 sets, daily range): BP systolic 128–170; BP diastolic 73–106; PULSE 70–104; RESP 6–26; TEMP 36.6–37.1; O2SAT 95–100
--- NOTE | 2020-07-25 01:42 | PC.NURSE ---
BEHAVIOR Patient has been calm and quiet this shift. At shift change patient sitting in wheel chair at bedside watching tv. Per 1:1 sitter, patient has been slightly agitated off and on but easily verbally redirected. Patient sleeping at this time.
[2020-07-25] MEDS: cefTRIAXone 2,000 MG in sodium chloride 0.9% (plus) 50 ML 100 MG IV (03:27)
[2020-07-25] MEDS: acyclovir 500 MG in sodium chloride 0.9% (100 ml) 100 ML 110 MG IV (03:55)
[2020-07-25 05:51] LABS: Basophils # 0.1 10^3/uL (0.0-0.1); Basophils % 0.6 %; Eosinophils # 0.1 10^3/uL (0.0-0.8); Eosinophils % 1.1 %; Hematocrit 33.4 % (37.0-47.0); Hemoglobin 10.3 g/dL (11.5-15.3); Lymphocytes # 1.4 10^3/uL (0.8-4.8); Lymphocytes % 16.2 %; Mean Corpuscular HGB Conc 30.8 g/dL (30.0-36.0); Mean Corpuscular Hemoglobin 28.2 pg (28.0-34.0); Mean Corpuscular Volume 91.5 fL (81-99); Mean Platelet Volume 12.5 fL (7.4-10.4); Monocytes # 0.9 10^3/uL (0.2-0.9); Monocytes % 10.1 %; Neutrophils # 6.11 10^3/uL (1.8-7.7); Neutrophils % 71.6 %; Nucleated Red Blood Cells % 0 %; Platelet Count 306 10^3/cmm (130-400); Red Blood Count 3.65 10^6/uL (4.1-5.3); Red Cell Distribution Width 13.7 % (12.1-15.1); White Blood Count 8.5 10^3/uL (4.0-10.0)
[2020-07-25 06:14] LABS: Magnesium 2.3 mg/dL (1.7-2.3)
[2020-07-25 06:15] LABS: Alanine Aminotransferase 12 U/L (0-33); Albumin Level 3.1 g/dL (3.5-5.2); Alkaline Phosphatase 69 IU/L (35-105); Aspartate Amino Transferase 38 U/L (0-32); Blood Urea Nitrogen 26 mg/dL (8-23); Calcium 9.1 mg/dL (8.5-10.5); Carbon Dioxide 26 mmol/L (22-29); Chloride 100 mmol/L (98-107); Globulin 3.1 g/dL (1.3-4.6); Glucose 106 mg/dL (65-115); Osmolality Calculated 299 mOsm/kg (285-295); Sodium 142 mmol/L (136-145); Total Bilirubin 0.2 mg/dL (0.15-1.2); Total Protein 6.2 g/dL (6.6-8.7)
[2020-07-25 06:20] LABS: Anion Gap 20.1 (5-19); Potassium 4.1 mmol/L (3.5-5.1)
--- NOTE | 2020-07-25 08:33 | DCPLANNER ---
Discussed IM with DaughterOneal Stauffer via the phone ([phone]). No questions, copy left at bedside as agreed.
[2020-07-25 08:42] LABS: Glucose Point of Care 147 mg/dL (70-110)
[2020-07-25] MEDS: aspirin 325 mg Tablet PO (08:49)
[2020-07-25] MEDS: digoxin 125 mcg Tablet PO (08:49)
[2020-07-25] MEDS: levothyroxine 50 mcg Tablet PO (08:49)
[2020-07-25] MEDS: pantoprazole DR 40 mg Tablet PO (08:49)
[2020-07-25] MEDS: metoprolol tartrate 25 mg Tablet 37.5 MG PO ×2 (08:50→17:34)
[2020-07-25] MEDS: enoxaparin 60 mg/0.6 mL Syringe SUBCUT (08:59)
--- NOTE | 2020-07-25 10:27 | P.PN_ITS ---
Subjective Subjective: Interval history: She pulled out her IV today. She was transferred out of unit. Medications: Reviewed: Yes Medication Review Details: Current Medications Acetaminophen (Tylenol) 650 mg MN ONCE PRN PRN Reason: FEVER Last Admin: 07/22/20 16:00 Dose: 650 mg Documented by: Acetaminophen (Acetaminophen 325 Mg Tablet) 650 mg PO Q6H PRN PRN Reason: MILD PAIN Albuterol Sulfate (Albuterol) 2.5 mg INHALATION Q6H.RESPIRATORY PRN PRN Reason: SHORTNESS OF BREATH Aspirin (Aspirin) 325 mg PO DAILY [facility] Last Admin: 07/25/20 08:49 Dose: 325 mg Documented by: Atorvastatin Calcium (Atorvastatin 40 Mg Tablet) 40 mg PO Q24H JACK Last Admin: 07/24/20 21:08 Dose: 40 mg Documented by: Dextrose (D50w) 25 ml IVP ONCE PRN; Protocol PRN Reason: hypoglycemia protocol Dextrose (D50w) 50 ml IVP PRN PRN; Protocol PRN Reason: hypoglycemia protocol Digoxin (Lanoxin) 125 mcg PO DAILY JACK Last Admin: 07/25/20 08:49 Dose: 125 mcg Documented by: Enoxaparin Sodium (Enoxaparin 60 Mg/0.6 Ml Syringe) 60 mg SUBCUT Q24H JACK Last Admin: 07/25/20 08:59 Dose: 60 mg Documented by: Glucagon (Glucagen) 1 mg IM ONCE PRN; Protocol PRN Reason: Adult Acute Hypoglycemia Prot. Dextrose (D5w) 500 mls @ 100 mls/hr IV ONCE PRN; Protocol PRN Reason: Adult Acute Hypoglycemia Prot Ceftriaxone Sodium 2,000 mg/ (Sodium Chloride) 50 mls @ 100 mls/hr IV Q12H JACK; Protocol Last Infusion: 07/25/20 07:00 Dose: Infused Documented by: Vancomycin HCl 1,000 mg/ (Sodium Chloride) 250 mls @ 250 mls/hr IV Q24H JACK; Protocol Last Infusion: 07/24/20 18:40 Dose: Infused Documented by: Acyclovir 500 mg/ Sodium (Chloride) 110 mls @ 110 mls/hr IV Q12H JACK Last Infusion: 07/25/20 07:00 Dose: Infused Documented by: Insulin Aspart (Insulin Aspart 100 Unit/1 Ml) 0 unit SUBCUT WM&BEDTIME JACK; Protocol Last Admin: 07/25/20 08:14 Dose: Not Given Documented by: Levothyroxine Sodium (Levothyroxine 50 Mcg Tablet) 50 mcg PO DAILY [facility] Last Admin: 07/25/20 08:49 Dose: 50 mcg Documented by: Metoprolol Tartrate (Metoprolol Tartrate 25 Mg Tablet) 37.5 mg PO BID [facility] Last Admin: 07/25/20 08:50 Dose: 37.5 mg Documented by: Ondansetron HCl (Zofran) 4 mg IVP Q6H PRN PRN Reason: NAUSEA AND VOMITING Last Admin: 07/22/20 01:23 Dose: 4 mg Documented by: Pantoprazole Sodium (Pantoprazole Dr 40 Mg Tablet) 40 mg PO DAILY [facility] Last Admin: 07/25/20 08:49 Dose: 40 mg Documented by: Rivastigmine Tartrate (Exelon) 3 mg PO BID [facility] Last Admin: 07/25/20 08:50 Dose: 3 mg Documented by: Vitals/I&O/Wt Last Vital Signs Temp 98.4 F 07/24/20 12:00 Pulse 102 H 07/25/20 08:49 Resp 18 07/25/20 08:24 BP 147/75 07/25/20 06:00 Pulse Ox 95 07/25/20 08:24 07/24/20 07/25/20 07/25/20 22:59 06:59 14:59 Intake Total 900 / 1305 260 / 260 Output Total 200 / 400 1800 / 2200 Balance 700 / 905 -1800 / -895 260 / 260 Physical Exam Narrative: EXAM NARRATIVE: GENERAL: Averagely built and averagely nourished in no acute distress HEENT: Pupils equal round. No pallor or icterus. NECK: central trachea, no JVD. No carotid bruit. CARDIOVASCULAR SYSTEM: S1-S2 regular. No S3 or S4 present. No murmur rubs or g allops. RESPIRATORY SYSTEM: Chest clear to auscultation. No wheezes rhonchi or rubs heard. No use of accessory muscles. EXTREMITIES: No cyanosis or edema. No signs of chronic venous insufficiency. 2+ peripheral pulses. Extremities warm to touch. TRAUMA SURGEON: Patient is AWAKE. SKIN: Normal turgor and temperature. No breakdown, rash or nail changes noted. Urinary Catheter Management^: Carr: Cath Placed During This Visit: yes Reason for Continuing Indwelling Catheter: Accurate Measurement of Urinary Output in Critically Ill Patients Urinary Catheter Date of Insertion: 07/21/20 Urinary Catheter Time of Insertion: 23:21 Data : 07/25/20 04:00 07/25/20 04:00 Micro: Microbiology 07/24/20 02:18 Blood Culture - Preliminary Blood NEGATIVE TO DATE 07/24/20 02:13 Blood Culture - Preliminary Blood NEGATIVE TO DATE 07/23/20 20:10 Bacterial Antigens - Final Urine,Voided 07/23/20 20:10 Legionella Urinary Antigen - Final Urine Catheterized 07/23/20 04:23 Blood Culture - Preliminary Blood NEGATIVE TO DATE A&P Assessment and plan (1) Altered mental status: There is concern for meningoencephalitis and she is being treated for the same. -Negative for influenza A and B. Rapid antigen for SARS-CoV-2 is negative. COVID-19 PCR negative. -Mental status has improved significantly. Status: Acute Qualifiers: Altered mental status type: unspecified Qualified Code(s): R41.82 - Altered mental status, unspecified (2) NSTEMI (non-ST elevated myocardial infarction): Type I NSTEMI is highly likely given new regional wall motion abnormality and drop in left ventricular systolic function. -Type II is a possibility, but less likely. -Continue aspirin, Lipitor and metoprolol. She has been transitioned to Lovenox. Hold off on plavix given her h/o bleed and increased risk with triple therapy. -I had a detailed discussion with patient's daughter Xiomy Goldstein. The decision was made to continue with medical management given her age and underlying Alzheimer's dementia. Status: Acute (3) Atrial fibrillation: High [id number] score and given her history of prior stroke last year; she would benefit from being on anticoagulation. -She does have history of diverticular global bleed but that was her only episode and she has had no recurrent bleeding and her hemoglobin has remained stable. -After a detailed discussion with patient's daughter going over risks and benefits of anticoagulation leading to bleeding and lack of anticoagulation leading to increased risk of stroke given her prior history, the decision was made to start her on Eliquis 2.5 mg twice a day instead of warfarin that she was on home before. -Recommend starting her on Eliquis 2.5 mg twice daily once Lovenox is discontinued. She would need case management involvement for Eliquis coupon for 30-day free supply. Status: Chronic Qualifiers: Atrial fibrillation type: longstanding persistent Qualified Code(s): I48.11 - Longstanding persistent atrial fibrillation (4) CHF (NYHA class III, ACC/AHA stage C): appears compensated presently. -Change to metoprolol succinate 75 mg daily in morning and plan to add losartan 25 mg today. Status: Acute (5) Hypertension: BP elevated. Status: Chronic Qualifiers: Hypertension type: essential hypertension Qualified Code(s): I10 - Essential (primary) hypertension (6) Diabetes mellitus: Status: Chronic Qualifiers: Diabetes mellitus complication status: without complication Diabetes mellitus oil heaterman insulin use: without fdc use Diabetes mellitus type: type 2 Qualified Code(s): E11.9 - Type 2 diabetes mellitus without complications Additional A&P Information NSVT: Recommend keeping potassium more than 4 and magnesium more than 2. JEROME: likely pre renal, BUN and creatinine has nearly normalized. S/p dual-chamber permanent pacemaker Hyperlipidemia History of diverticular bleed Alzheimer's dementia DNR/DNI Thank you for allowing me to participate in patient's care. plesae feel free to call with questions or concerns Attestations Medical Necessity Statement*: As per primary team Time Spent in Patient Care: 16 - 35 minutes (>than 50% of time spent in counselling and/or direct pt care on unit) . Coding Level of Care Code Acute Contract Engineer for [employer] Fwd Diagnoses Altered mental status R41.82 Altered mental status type: unspecified NSTEMI (non-ST elevated myocardial infarction) I21.4 Atrial fibrillation I48.11 Atrial fibrillation type: longstanding persistent CHF (NYHA class III, ACC/AHA stage C) I50.9 Hypertension I10 Hypertension type: essential hypertension Diabetes mellitus E11.9 Diabetes mellitus complication status: without complication Diabetes mellitus fdc insulin use: without oil heaterman use Diabetes mellitus type: type 2
[2020-07-25 11:51] LABS: Glucose Point of Care 247 mg/dL (70-110)
--- NOTE | 2020-07-25 11:51 | PC.NURSE ---
PICC CONSENT NOT COMPLETED AT THIS TIME, WILL REEVALUATE 07/26/20
[2020-07-25 13:53] LABS: Lyme AB Screen <0.90 index
--- NOTE | 2020-07-25 15:33 | PM.PN ---
Subjective Subjective: Interval history: Patient's mental status continues to be at baseline, much improved since admission. She remains conversant, though severe deficits in short-term and long-term memory. She was able to walk 1 lap in the ICU this morning. Now subsequently transferred out to the floor. Remains afebrile and hemodynamically stable. Medications: Reviewed: Yes Vitals/I&O/Wt Last Vital Signs Temp 98.0 F 07/25/20 15:29 Pulse 70 07/25/20 15:29 Resp 18 07/25/20 15:29 BP 160/74 07/25/20 15:29 Pulse Ox 99 07/25/20 15:29 07/25/20 07/25/20 07/25/20 06:59 14:59 22:59 Intake Total 760 / 760 Output Total 1800 / 2200 300 / 300 350 / 650 Balance -1800 / -895 460 / 460 -350 / 110 Physical Exam Narrative: EXAM NARRATIVE: GEN: Awake, alert and oriented, no acute distress CVS: S1S2 N RS: CTA B/L Abd: Soft, nt/nd , bs+ HAND LASTER: no focal neuro deficits Urinary Catheter Management^: Carr: Cath Placed During This Visit: yes Reason for Continuing Indwelling Catheter: Accurate Measurement of Urinary Output in Critically Ill Patients Urinary Catheter Date of Insertion: 07/21/20 Urinary Catheter Time of Insertion: 23:21 Data : 07/25/20 04:00 07/25/20 04:00 Micro: Microbiology 07/24/20 02:18 Blood Culture - Preliminary Blood NEGATIVE TO DATE 07/24/20 02:13 Blood Culture - Preliminary Blood NEGATIVE TO DATE 07/23/20 20:10 Bacterial Antigens - Final Urine,Voided 07/23/20 20:10 Legionella Urinary Antigen - Final Urine Catheterized A&P Assessment and plan (1) Altered mental status: This is now resolved. She is back to baseline mentation Walked 1.5 laps in the ICu this morning with aid of a walker CT head with probable prominent chronic ischemic changes. No acute events. Given presentation with fever and encephalopathy , cannot exclude the possibility of meningoencephalitis. Alternate etiologies include metabolic encephalopathy from pneumonia, however this seems less likely as there is no gross consolidation on CT chest. There is very mild right lower lobe groundglass and patient severity of symptoms do not appear to correlate mild pneumonia at best. Treated for presumptive meningoencephalitis, reduce ceftriaxone 2 g IV every 24 hours., Discontinue Vancomycin, MRSA negative PCR Change acyclovir 10 mg/kg every 8 hours to po Valtrex 1g BID in anticipation of discharge over the next 24 hrs. Total duration of treatment to be 14 days, will need to complete treatment as outpatient Planned discharge on Ceftriaxone 2 g iv daily and Valtrex 1g po BID (renally dosed) PICC line to facilitate above Closely monitor with above changes being made today Unable to get LP upon admission as patien on heparin drip for NSTEMI. Interruption of anticoagulation not recommended due to the samee. Unlikley to be beneficial at this time since patient has been on abx and sterility of cx cannot be taken as a sign of absence of infection. UA not consistent with UTI Blood cultures remain negative to date, pacemaker pocket site without any gross cellulitic changes. TSH within normal range Digoxin level within range Status: Acute Qualifiers: Altered mental status type: unspecified Qualified Code(s): R41.82 - Altered mental status, unspecified (2) Acute respiratory failure with hypoxia: Initially thought to have flash pulmonary edema related to A. fib with RVR and hypertensive urgency. Received metolazone and Bumex on day of admission. Currently appears to be euvolemic. Holding diuretics. Echocardiogram with new wall motion abnormalities, EF of 30%. Covid antigen negative, PCR negative urine bacterial and legionella antigen negative. Status: Acute (3) Pulmonary edema: This is currently resolved. Status: Acute Qualifiers: Chronicity: acute Qualified Code(s): J81.0 - Acute pulmonary edema (4) Atrial fibrillation with RVR: Heart rate is controlled. Continue metoprolol and digoxin Status: Acute (5) NSTEMI (non-ST elevated myocardial infarction): As evidenced by significant troponin elevation and new wall motion abnormalities and low EF on echocardiogram. Patient was started on a heparin drip upon admission, changed to Lovenox 60 mg every 24 hours, this is renally dosed for creatinine clearance between 27-30. Will discontinue upon discharge Continue ASA 325, lipitor 40 and metoprolol Appreciate cardiology recommendation No current plans for angiogram given mltuiple comorbidities and advanced dementia Status: Acute (6) Alzheimer disease: Known to have Alzheimer's dementia, at a baseline has deficits in short and long-term memory. Unsteady gait. Ambulates with cane and walker Status: Chronic Qualifiers: Alzheimer's disease onset: late-onset Dementia behavioral disturbance: without behavioral disturbance Qualified Code(s): G30.1 - Alzheimer's disease with late onset; F02.80 - Dementia in other diseases classified elsewhere without behavioral disturbance (7) Diastolic heart failure: Status: Chronic Qualifiers: Heart failure chronicity: chronic Qualified Code(s): I50.32 - Chronic diastolic (congestive) heart failure (8) Diabetes mellitus: Continue insulin sliding scale Status: Chronic Qualifiers: Diabetes mellitus type: type 2 Diabetes mellitus senior care insulin use: without senior care use Diabetes mellitus complication status: without complication Qualified Code(s): E11.9 - Type 2 diabetes mellitus without complications (9) Hyperlipidemia: Status: Chronic Qualifiers: Hyperlipidemia type: unspecified Qualified Code(s): E78.5 - Hyperlipidemia, unspecified (10) Hypertension: Blood pressure currently well controlled Status: Chronic Qualifiers: Hypertension type: essential hypertension Qualified Code(s): I10 - Essential (primary) hypertension (11) Sepsis: This was present on admission as evidenced by high-grade fevers, leukocytosis, altered mental status. Now improving. Status: Acute Qualifiers: Sepsis type: sepsis due to unspecified organism Sepsis acute organ dysfunction status: with acute organ dysfunction Severe sepsis acute organ dysfunction type: encephalopathy Severe sepsis shock status: without septic shock Qualified Code(s): A41.9 - Sepsis, unspecified organism; R65.20 - Severe sepsis without septic shock; G93.40 - Encephalopathy, unspecified Additional A&P Information Start dysphagia diet today, may advance as tolerated. PT OT encouraged DVT prophylaxis currently on full dose Lovenox Attestations Medical Necessity Statement*: narrowng abx today, move out of ICU, PICC line, planned discharge in the upcoming 24 hrs Coding Level of Care Code Acute Cash Register Operator for g Fwd Diagnoses Altered mental status R41.82 Altered mental status type: unspecified Acute respiratory failure with hypoxia J96.01 Pulmonary edema J81.0 Chronicity: acute Atrial fibrillation with RVR I48.91 NSTEMI (non-ST elevated myocardial infarction) I21.4 Alzheimer disease G30.1; F02.80 Alzheimer's disease onset: late-onset Dementia behavioral disturbance: without behavioral disturbance Diastolic heart failure I50.32 Heart failure chronicity: chronic Diabetes mellitus E11.9 Diabetes mellitus type: type 2 Diabetes mellitus long term care administrator insulin use: without long term care administrator use Diabetes mellitus complication status: without complication Hyperlipidemia E78.5 Hyperlipidemia type: unspecified Hypertension I10 Hypertension type: essential hypertension Sepsis A41.9; R65.20; G93.40 Sepsis type: sepsis due to unspecified organism Sepsis acute organ dysfunction status: with acute organ dysfunction Severe sepsis acute organ dysfunction type: encephalopathy Severe sepsis shock status: without septic shock
[2020-07-25 16:40] LABS: Glucose Point of Care 156 mg/dL (70-110)
[2020-07-25] MEDS: losartan 50 mg Tablet 25 MG PO (17:36)
[2020-07-25] MEDS: valACYclovir 1,000 mg Tablet 1000 MG PO (18:33)
[2020-07-25 21:32] LABS: Glucose Point of Care 195 mg/dL (70-110)
[2020-07-25] MEDS: atorvastatin 40 mg Tablet PO (22:27)
[2020-07-26] VITALS (7 sets, daily range): BP systolic 151–188; BP diastolic 74–91; PULSE 71–97; RESP 16–18; TEMP 36.6–37; O2SAT 97–100
[2020-07-26] MEDS: valACYclovir 1,000 mg Tablet 1000 MG PO (06:09)
[2020-07-26 06:55] LABS: Glucose Point of Care 114 mg/dL (70-110)
[2020-07-26] MEDS: levothyroxine 50 mcg Tablet PO (08:06)
[2020-07-26] MEDS: metoprolol succinate ER (24 HR) 50 mg Tablet 75 MG PO (08:06)
[2020-07-26] MEDS: digoxin 125 mcg Tablet PO (08:06)
[2020-07-26] MEDS: pantoprazole DR 40 mg Tablet PO (08:06)
[2020-07-26] MEDS: aspirin 81 mg EC Tablet PO (08:07)
[2020-07-26] MEDS: losartan 50 mg Tablet 25 MG PO (08:07)
--- NOTE | 2020-07-26 09:32 | XR_ITS ---
WS: [id number] CHEST XRAY TECHNIQUE: Portable chest. CLINICAL INFORMATION: verify placement of PICC COMPARISON: July 22, 2020 FINDINGS: Right PICC line with tip in the proximal to mid SVC in good position. Cardiac pacer. No pneumothorax. Heart: Cardiomegaly. Lungs: Moderate chronic emphysematous changes. No acute pulmonary infiltrates. Bones: Osteopenia. XR/XR chest 1V portable [id number] IMPRESSION: 1. Right PICC line with tip in the proximal to mid SVC. No pneumothorax. 2. Stable cardiomegaly.
[2020-07-26 11:09] LABS: Glucose Point of Care 226 mg/dL (70-110)
[2020-07-26] MEDS: cefTRIAXone 2,000 MG in sodium chloride 0.9% (plus) 50 ML 100 MG IV (11:09)
--- NOTE | 2020-07-26 13:28 | P.DS_ITS ---
Discharge Providers Date of Admission: 07/22/20 00:06 Date of Discharge: July 26, 2020 Attending Provider at Admission: Ismael Rainey MD Attending Provider at Discharge: Yuliya Bartholomew MD Primary Care Provider: Mariajose Brice APN Diagnoses at Discharge Discharge Diagnosis (1) Altered mental status: Status: Acute Qualifiers: Altered mental status type: unspecified Qualified Code(s): R41.82 - Altered mental status, unspecified (2) NSTEMI (non-ST elevated myocardial infarction): Status: Acute (3) Atrial fibrillation: Status: Chronic Qualifiers: Atrial fibrillation type: longstanding persistent Qualified Code(s): I48.11 - Longstanding persistent atrial fibrillation (4) CHF (NYHA class III, ACC/AHA stage C): Status: Acute (5) Hypertension: Status: Chronic Qualifiers: Hypertension type: essential hypertension Qualified Code(s): I10 - Essential (primary) hypertension (6) Diabetes mellitus: Status: Chronic Qualifiers: Diabetes mellitus type: type 2 Diabetes mellitus retirement insulin use: without retirement use Diabetes mellitus complication status: without complication Qualified Code(s): E11.9 - Type 2 diabetes mellitus without complications Reason for Visit Reason for Visit: high bp/headache Hospital Course Hospital Course Jessica Calvert is a 74 year old female with past medical history of atrial fibrillation on digoxin, anticoagulation held due to diverticular bleed, Alzheimer's dementia, hypertension, hypothyroidism, depression, heart failure with preserved ejection fraction, CVA, sleep apnea who presented to [facility] due to increased confusion, nausea, vomiting, poor appetite, shortness of breath. Hospital course as follows: (1) Altered mental status: This is now resolved. She is back to baseline mentation. CT head with probable prominent chronic ischemic changes. No acute events. Given presentation with fever and encephalopathy , cannot exclude the possibility of meningoencephalitis. Alternate etiologies include metabolic encephalopathy from pneumonia, however this seems less likely as there is no gross consolidation on CT chest. There is very mild right lower lobe groundglass and patient severity of symptoms do not appear to correlate mild pneumonia at best. Treated for presumptive meningoencephalitis,initially with Ceftriaxone, vancomycin and iv acyclovir Now transitioined to ceftriaxone 2 g IV every 24 hours and po Valtrex 1g BID upon discharge (renally dosed) Total duration of treatment to be 14 days, will need to complete treatment as outpatient PICC line to facilitate above placed on 07/26 Closely monitor with above changes being made today Unable to get LP upon admission as patien on heparin drip for NSTEMI. Interruption of anticoagulation not recommended due to the samee. Unlikley to be beneficial at this time since patient has been on abx and sterility of cx cannot be taken as a sign of absence of infection. UA not consistent with UTI Blood cultures remain negative to date, pacemaker pocket site without any gross cellulitic changes. TSH within normal range Digoxin level within range (2) Acute respiratory failure with hypoxia: Initially thought to have flash pulmonary edema related to A. fib with RVR and hypertensive urgency. Received metolazone and Bumex on day of admission. Currently appears to be euvolemic. Holding diuretics. Echocardiogram with new wall motion abnormalities, EF of 30%. Covid antigen negative, PCR negative urine bacterial and legionella antigen negative. (3) Pulmonary edema: (4) Atrial fibrillation with RVR: Heart rate is controlled. Continue metoprolol and digoxin (5) NSTEMI (non-ST elevated myocardial infarction): As evidenced by significant troponin elevation and new wall motion abnormalities and low EF on echocardiogram. Patient was started on a heparin drip upon admission, changed to Lovenox 60 mg every 24 hours, this is renally dosed for creatinine clearance between 27-30. discontinued upon discharge Continue ASA 325, lipitor 40 and metoprolol Appreciate cardiology recommendation No current plans for angiogram given mltuiple comorbidities and advanced dem entia (6) Alzheimer disease: (7) Diastolic heart failure: Status: Chronic (8) Diabetes mellitus: Continue insulin sliding scale (9) Hyperlipidemia: (10) Hypertension: (11) Sepsis: This was present on admission as evidenced by high-grade fevers, leukocytosis, altered mental status. Now improving. Physical Exam Narrative: EXAM NARRATIVE: GEN: Awake, alert and oriented, no acute distress CVS: S1S2 N RS: CTA B/L Abd: Soft, nt/nd , bs+ STEREOTYPE MOLDER: no focal neuro deficits Urinary Catheter Management^: Carr: Cath Placed During This Visit: yes, but has since been removed by the nurse Reason for Continuing Indwelling Catheter: Accurate Measurement of Urinary Output in Critically Ill Patients Urinary Catheter Date of Insertion: 07/21/20 Urinary Catheter Time of Insertion: 23:21 Date Urinary Catheter Removed: 07/25/20 Time Urinary Catheter Discontinued: 14:00 Discharge Data Data Completed and Pending: Completed Studies During Hospitalization Category Date Time Status CT abdomen pelvis wo con [id number] Rout ine Cat Scan 07/22/20 01:[address] chest wo con 7 1250 Routine Cat Scan 07/22/20 12:[address] head wo con* 7 0450 Stat Cat Scan 07/22/20 18:[address] head wo con* 7 0450 Urgent Cat Scan 07/21/20 20:25 Completed XR chest 1V juan ble [id number] Stat Exams 07/21/20 21:17 Completed XR chest 1V juan ble [id number] Stat Exams 07/22/20 19:05 Completed XR chest 1V juan ble [id number] Stat Exams 07/26/20 09:32 Completed CV echo complete* [id number] Routine Ultrasound 07/22/20 01:46 Completed Pending at discharge Category Date Time Status Blood Culture AM LABS Lab 07/24/20 02:18 Results Blood Culture Sta t Lab 07/22/20 12:23 Results Blood Culture Sta t Lab 07/23/20 04:23 Results Sputum Culture an d Gram Stain Stat Lab 07/22/20 06:19 Uncollected Tick Panel Routin e Lab 07/23/20 19:10 Results Labs from last 24 hours 07/26/20 07/26/20 07/25/20 11:01 06:50 21:23 POC Glucose 226 114 195 Lyme Ab (Western B lot) 07/25/20 07/23/20 16:37 19:10 POC Glucose 156 Lyme Ab (Western B lot) <0.90 Vitals: Last Vital Signs Temp 98.6 F 07/26/20 08:00 Pulse 72 07/26/20 11:38 Resp 17 07/26/20 11:38 BP 158/74 07/26/20 11:38 Pulse Ox 97 07/26/20 11:38 Discharge Plan Discharge Patient Disposition: Home Health Service Condition: Stable Prescriptions: New pantoprazole 40 mg Tablet,Delayed Release (Dr/Ec) 40 mg PO DAILY 14 Days Qty: 14 RF: 0 valacyclovir 1 gram Tablet 1,000 mg PO Q12H 10 Days Qty: 20 RF: 0 aspirin 81 mg Tablet,Delayed Release (Dr/Ec) 81 mg PO DAILY Qty: 30 RF: 0 metoprolol succinate 50 mg Tablet Extended Release 24 Hr 75 mg PO DAILY 30 Days Qty: 30 RF: 0 ceftriaxone 2 gram recon soln 2 g IV Q24H 10 Days Qty: 10 RF: 0 losartan 50 mg Tablet 25 mg PO DAILY 30 Days Qty: 30 RF: 0 Continued magnesium oxide 400 mg magnesium capsule 400 mg PO DAILY RF: 0 multivitamin Tablet 1 tab PO DAILY RF: 0 levothyroxine 50 mcg capsule 50 mcg PO DAILY RF: 0 omega-3 fatty acids [Fish Oil Concentrate] 1,000 mg capsule 1,000 mg PO DAILY RF: 0 pravastatin 40 mg tablet 40 mg PO DAILY RF: 0 digoxin [Digox] 125 mcg (0.125 mg) tablet 125 mcg PO DAILY Qty: 90 RF: 3 rivastigmine tartrate 3 mg capsule See Rx Instructions .ROUTE .COMPLEX Qty: 60 RF: 3 citalopram 10 mg tablet 10 mg PO DAILY RF: 0 Discharge Orders: Discharge Order (Routine); Ordered 07/26/20 Ordered By: Yuliya Bartholomew Referrals: [facility] [Other] (This is the company that will be providing your IV medication. It will be delivered to your house. If you have any questions about delivery of this medication, please call the phone number provided.) [facility] [Outside] (This is the home health company that will be coming out to teach you or your daughter how to administer your IV medication. They will contact you within 24 hours of being discharged. If you do not hear from them in this time frame, please call at the phone number provided.) Mariajose Brice APN [Primary Care Provider] - 4-7 days Martha Lopez MD [Physician] - 7-10 days (f/up NSTEMI) Discharge Diet: As Directed Discharge Activity: Resume usual activity and Use walker/crutches as instructed Discharge Attestations Time Spent in Discharge Care*: greater than 30 min Status at Discharge: Cognitive status at discharge: cognitively intact , Behavioral status at discharge: cooperative , Quality Metrics Clinical Quality Measures During this hospital stay, did patient experience: None Coding Level of Care Code 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
--- NOTE | 2020-07-26 17:44 | P.PN_ITS ---
Subjective Subjective: Interval history: No new complaints. Medications: Reviewed: Yes Vitals/I&O/Wt Last Vital Signs Temp 98.6 F 07/26/20 08:00 Pulse 72 07/26/20 16:39 Resp 17 07/26/20 16:39 BP 158/74 07/26/20 16:39 Pulse Ox 97 07/26/20 16:39 07/26/20 07/26/20 07/26/20 06:59 14:59 22:59 Intake Total 240 / 1120 480 / 480 Output Total 501 / 501 Balance 239 / 469 - Physical Exam Narrative: EXAM NARRATIVE: GENERAL: Averagely built and averagely nourished i n no acute distress HEENT: Pupils equal round. No pallor or icterus. NECK: central trachea, no JVD. No carotid bruit. CARDIOVASCULAR SYSTEM: S1-S2 regular. No S3 or S4 present. No murmur rubs or g allops. RESPIRATORY SYSTEM: Chest clear to auscultation. No wheezes rhonchi or rubs heard. No use of accessory muscles. EXTREMITIES: No cyanosis or edema. No signs of chronic venous insufficiency. 2+ peripheral pulses. Extremities warm to touch. 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 oriented to self with intermittent confusion SKIN: Normal turgor and temperature. No breakdown, rash or nail changes noted. Urinary Catheter Management^: Carr: Cath Placed During This Visit: yes, but has since been removed by the nurse Reason for Continuing Indwelling Catheter: Accurate Measurement of Urinary Output in Critically Ill Patients Urinary Catheter Date of Insertion: 07/21/20 Urinary Catheter Time of Insertion: 23:21 Date Urinary Catheter Removed: 07/25/20 Time Urinary Catheter Discontinued: 14:00 Data : 07/25/20 04:00 07/25/20 04:00 A&P Assessment and plan (1) Altered mental status: There is concern for meningoencephalitis and she is being treated for the same. -Negative for influenza A and B. Rapid antigen for SARS-CoV-2 is negative. COVID-19 PCR negative. -Mental status has improved significantly. Status: Acute Qualifiers: Altered mental status type: unspecified Qualified Code(s): R41.82 - Altered mental status, unspecified (2) NSTEMI (non-ST elevated myocardial infarction): Type I NSTEMI is highly likely given new regional wall motion abnormality and drop in left ventricular systolic function. -Type II is a possibility, but less likely. -Continue aspirin, Lipitor and metoprolol. She has been transitioned to Lovenox. Hold off on plavix given her h/o bleed and increased risk with triple therapy. -I had a detailed discussion with patient's daughter Xiomy Goldstein. The decision was made to continue with medical management given her age and underlying Alzheimer's dementia. Status: Acute (3) Atrial fibrillation: High HLH2OG4-EURd score and given her history of prior stroke last year; she would benefit from being on anticoagulation. -She does have history of diverticular global bleed but that was her only episo de and she has had no recurrent bleeding and her hemoglobin has remained stable. -After a detailed discussion with patient's daughter going over risks and benefits of anticoagulation leading to bleeding and lack of anticoagulation leading to increased risk of stroke given her prior history, the decision was made to start her on Eliquis 2.5 mg twice a day instead of warfarin that she was on home before. -Recommend starting her on Eliquis 2.5 mg twice daily once Lovenox is discontinu ed. She would need case management involvement for Eliquis coupon for 30-day free supply. Status: Chronic Qualifiers: Atrial fibrillation type: longstanding persistent Qualified Code(s): I48.11 - Longstanding persistent atrial fibrillation (4) CHF (NYHA class III, ACC/AHA stage C): appears compensated presently. -continue on metoprolol succinate 75 mg daily and losartan 25 mg today. -Not a good candidate for life vest given dementia Status: Acute (5) Hypertension: BP elevated. Status: Chronic Qualifiers: Hypertension type: essential hypertension Qualified Code(s): I10 - Essential (primary) hypertension (6) Diabetes mellitus: Status: Chronic Qualifiers: Diabetes mellitus complication status: without complication Diabetes mellitus drill punch operator insulin use: without drill punch operator use Diabetes mellitus type: type 2 Qualified Code(s): E11.9 - Type 2 diabetes mellitus without complications Additional A&P Information NSVT: Recommend keeping potassium more than 4 and magnesium more than 2. JEROME: likely pre renal, BUN and creatinine has nearly normalized. S/p dual-chamber permanent pacemaker Hyperlipidemia History of diverticular bleed Alzheimer's dementia DNR/DNI Thank you for allowing me to participate in patient's care. viete feel free to call with questions or concerns Attestations Medical Necessity Statement*: As per primary team Time Spent in Patient Care: 16 - 35 minutes (>than 50% of time spent in counselling and/or direct pt care on unit) . Coding Level of Care Code Acute Mixer [employer] Products for Dominguez Fwdenise Diagnoses Altered mental status R41.82 Altered mental status type: unspecified NSTEMI (non-ST elevated myocardial infarction) I21.4 Atrial fibrillation I48.11 Atrial fibrillation type: longstanding persistent CHF (NYHA class III, ACC/AHA stage C) I50.9 Hypertension I10 Hypertension type: essential hypertension Diabetes mellitus E11.9 Diabetes mellitus complication status: without complication Diabetes mellitus drill punch operator insulin use: without drill punch operator use Diabetes mellitus type: type 2
[2020-07-27 16:27] LABS: E. Chaffeensis AB IGG <1:64; E. Chaffeensis AB IGM <1:20
[2020-07-28 16:03] LABS: RMSF IGG NOT DETECTED; RMSF IGM NOT DETECTED
== END 2020-07-26 14:00 | disposition home health service (06) | DRG 871 ==
LOC: ER 23:48 → CSU 07-22 00:25 → ICU 07-22 20:01 → MEDSURG 07-25 13:14
PROVIDERS: Internal Medicine Cardiovascular Disease; Nurse Practitioner Family; Student in an Organized Health Care Education/Training Program; Admitting Provider Family Medicine; Emergency Provider Emergency Medicine; PCP Nurse Practitioner; Visit Provider Student in an Organized Health Care Education/Training Program
DX: A41.9 Sepsis, unspecified organism (principal); J81.0 Acute pulmonary edema; I21.A1 Myocardial infarction type 2; J96.01 Acute respiratory failure with hypoxia; G04.90 Encephalitis and encephalomyelitis, unspecified; I48.11 Longstanding persistent atrial fibrillation; I50.32 Chronic diastolic (congestive) heart failure; G30.9 Alzheimer's disease, unspecified; F02.80 Dementia in other diseases classified elsewhere, unspecified severity, without behavioral disturbance, psychotic disturbance, mood disturbance, and anxiety; I11.0 Hypertensive heart disease with heart failure; E03.9 Hypothyroidism, unspecified; F32.9 Major depressive disorder, single episode, unspecified; G47.30 Sleep apnea, unspecified; E11.42 Type 2 diabetes mellitus with diabetic polyneuropathy; M79.7 Fibromyalgia; E78.5 Hyperlipidemia, unspecified; Z95.0 Presence of cardiac pacemaker; Z96.659 Presence of unspecified artificial knee joint; Z87.891 Personal history of nicotine dependence; Z66 Do not resuscitate; Z86.73 Personal history of transient ischemic attack (TIA), and cerebral infarction without residual deficits
CPT/HCPCS: 12345; 36415; 36416; 36569; 36600; 51702; 70450; 71045; 71250; 74176; 80048; 80053; 80162; 80202; 81003; 82140; 82565; 82803; 82962; 83605; 83690; 83735; 83880; 84145; 84484; 84520; 85025; 85049; 85610; 85730; 86403; 86618; 86666; 86757; 87040; 87426; 87449; 87635; 87641; 87804; 93005; 93306; 94664; 96372; 96375; 97116; 97161; 97530; 99283; C1751; J0131; J0133; J0282; J0456; J0610; J0696; J1630; J1644; J1650; J1815; J1940; J2250; J2405; J3370; J3475; J3480; J3490; J7050

== ENCOUNTER → 2020-07-31 08:40 | Day surgery (SDC) | payer MEDICARE, SELFPAY ==
[2020-07-30 10:35] VITALS: BP 163/75; PULSE 71; RESP 18; TEMP 37; O2SAT 98
--- NOTE | 2020-07-31 11:11 | XR_ITS ---
WS: [id number] PORTABLE CHEST HISTORY: picc COMPARISON: 07/26/2020 Left-sided PICC line with tip in the mid SVC. No complications. Additional dual lead LEFT subclavian pacer. Hyperinflated lungs with no pneumonia. No pleural effusion or pneumothorax. Cardiac size: Mildly enlarged cardiac silhouette. Mediastinum/Aorta: Normal mediastinum. No osseous abnormality seen. XR/XR chest 1V portable [id number] IMPRESSION: Satisfactory placement of a LEFT PICC line.
== END ==
PROVIDERS: PCP Nurse Practitioner; Visit Provider Student in an Organized Health Care Education/Training Program
DX: Z45.2 Encounter for adjustment and management of vascular access device (principal)
CPT/HCPCS: 36569; 71045

== ENCOUNTER 2020-12-07 08:24 | Outpatient (CLI) | payer MEDICARE, SELFPAY ==
--- NOTE | 2020-12-07 08:45 | USCV_ITS ---
Jessica Calvert Age: 75 Gender: F : 1945 Exam Date: 12/07/2020 08:41 Ordering Phys: Martha Lopez MD ([email or web address]) Technologist: Halley Haro Exam Location: [facility] [place] Indication: Assess LV FUNCTION BP: / HR: 62 Rhythm: Sinus Technical Quality: Fair MEASUREMENTS (Male / Female) Normal Values 2D ECHO LV Chamber Size 5.0 cm RV Chamber Size 2.4 cm LV Ejection Fraction MOD 2C 56.8 % LV Ejection Fraction 2C AL 56.0 % LA Width 3.8 cm LA Height 6.2 cm RA Width 4.7 cm RA Height 5.4 cm M-MODE LV Diastolic Diameter MM 5.7 cm 4.2 - 5.9 / 3.9 - 5.3 cm LV Systolic Diameter MM 4.1 cm LV Ejection Fraction MM Teich 53.6 % IVS Diastolic Thickness MM 1.0 cm 0.6 - 1.0 / 0.6 - 0.9 cm IVS Systolic Thickness MM 1.4 cm LVPW Diastolic Thickness MM 1.0 cm 0.6 - 1.0 / 0.6 - 0.9 cm LVPW Systolic Thickness MM 1.4 cm RV Diastolic Diameter MM 3.4 cm FINDINGS Left Ventricle Normal left ventricular cavity size. Mildly decreased left ventricular systolic function. Left ventricular ejection fraction is estimated at 45%. Mild global hypokinesis. Abnormal septal motion consistent with conduction abnormality. Right Ventricle Normal right ventricular size and systolic function. Right Atrium Mildly increased right atrial size. Left Atrium Moderately increased left atrial size. Mitral Valve Moderate mitral annular calcification. Thickened mitral valve. Aortic Valve Mildly thickened trileaflet aortic valve. Tricuspid Valve Structurally normal tricuspid valve. Trace to mild tricuspid valve regurgitation. Pulmonic Valve Trace pulmonary valve regurgitation. Pericardium No pericardial effusion. Aorta Normal size aortic root. CONCLUSIONS 1. Normal left ventricular cavity size. Mildly decreased left ventricular systolic function. Left ventricular ejection fraction is estimated at 45%. Mild global hypokinesis. 2. When compared to previous echocardiogram dated 07/22/20, left ventricular systolic function has improved. Martha Lopez MD (Electronically Signed) Final Date: 09 December 2020 18:20 S
== END 2020-12-07 08:25 | disposition home or self-care (01) ==
PROVIDERS: PCP Nurse Practitioner; Visit Provider Internal Medicine Cardiovascular Disease
DX: I50.9 Heart failure, unspecified (principal)
CPT/HCPCS: 93308

== ENCOUNTER → 2021-02-20 09:23 | Outpatient (BNVA) | payer MEDICARE, SELFPAY | PROVIDERS: PCP Nurse Practitioner; Visit Provider Specialist | DX: G30.9 Alzheimer's disease, unspecified (principal); F02.80 Dementia in other diseases classified elsewhere, unspecified severity, without behavioral disturbance, psychotic disturbance, mood disturbance, and anxiety; Z87.891 Personal history of nicotine dependence | CPT/HCPCS: 96116; 99214 ==

== ENCOUNTER → 2021-02-21 09:37 | Outpatient (BNVA) | payer MEDICARE, SELFPAY | PROVIDERS: PCP Nurse Practitioner; Visit Provider Thoracic Surgery (Cardiothoracic Vascular Surgery) | DX: Z01.818 Encounter for other preprocedural examination (principal); Z20.822 Contact with and (suspected) exposure to COVID-19 | CPT/HCPCS: 87635 ==

== ENCOUNTER 2021-02-26 07:58 | Day surgery (SDC) | payer MEDICARE, SELFPAY ==
[2021-02-21 10:25] VITALS: BMI 28.7
--- NOTE | 2021-02-21 11:23 | ANES.PREANE2 ---
Pre-Anesthetic Assessment Pre-Anesthetic Assessment: Height/Weight: Height 1.57 m Weight 71.214 kg Preop Diagnosis: Pacemaker generator end of service Proposed Procedure: Operation Date: 02/26/21 10:45 Proposed Procedures p Pacemaker Exchange(Not Applicable) - Kobi Hernandez MD Familial anesthetic complications: nONE Social: Social History: No alcohol and No tobacco Airway: Cervical ROM: WNL MP: 1 Dentition: False CV/HEM: CV/HEM: Afib (w rvr), Arrythmia, CHF (CHF III), HTN and TX (STEMI) Comments: pacemaker Echo CONCLUSIONS 1. Mildly dilated left ventricular cavity. Moderately decreased left ventricular systolic function. Left ventricular ejection fraction is estimated at 30 %. There is severe hypokinesis of entire anterior, basal to mid anteroseptal, basal to mid inferoseptal, apical septal , apical lateral and apical wood. 2. Normal right ventricular size and mildly decreased systolic function. There is hypokinesis of right ventricular apex. 3. Mild mitral valve regurgitation. 4. Pulmonary artery pressure estimated at 27 mm Hg. 5. When compared to previous echocardiogram dated 01/19/2018, there id drop in LV function and there in RWMA. Metabolic: Metabolic: DM, Hyperlipidemia and Thyroid Neuropsych: Neuropsych: CVA Anesthetic Plan: ASA status: 4 Anesthesia: MAC Risk of > 500 ml blood loss (7ml/kg in children): No PFSH Anesthesia PFSH: Medical History Atrial fibrillation Depression Diabetes mellitus Diastolic heart failure Diverticulitis Fibromyalgia GI bleed Diverticulitis suggested on CT scan. History of CVA (cerebrovascular accident) Hyperlipidemia Hypertension Hypothyroidism -has hx of hypothyroidism -continue levothyroxine Lower gastrointestinal hemorrhage Neuropathy Sleep apnea unclear if cpap machine working Surgical History S/P appendectomy S/P cardiac pacemaker procedure S/P carpal tunnel release S/P cholecystectomy S/P gastric surgery S/P hernia repair S/P hysterectomy S/P knee replacement Family History Father Stroke Mother Diabetes Hypertension CAD (coronary artery disease) Social History Smoking and tobacco status: former smoker Quit status (tobacco): has quit using tobacco Year quit tobacco: 1986 Alcohol intake: never History of recent travel: No Data Anesthesia Cardiac Studies: No Data to Display
[2021-02-21 11:25] LABS: Basophils # 0.1 10^3/uL (0.0-0.1); Basophils % 0.7 %; Eosinophils # 0.1 10^3/uL (0.0-0.8); Eosinophils % 1.2 %; Hematocrit 40.8 % (37.0-47.0); Hemoglobin 13.2 g/dL (11.5-15.3); Lymphocytes % 27.6 %; Mean Corpuscular HGB Conc 32.4 g/dL (30.0-36.0); Mean Corpuscular Hemoglobin 29.3 pg (28.0-34.0); Mean Corpuscular Volume 90.7 fL (81-99); Mean Platelet Volume 11.7 fL (7.4-10.4); Monocytes # 0.7 10^3/uL (0.2-0.9); Monocytes % 9.9 %; Neutrophils # 4.38 10^3/uL (1.8-7.7); Neutrophils % 60.5 %; Nucleated Red Blood Cells % 0 %; Platelet Count 265 10^3/cmm (130-400); Red Cell Distribution Width 12.9 % (12.1-15.1); White Blood Count 7.3 10^3/uL (4.0-10.0)
[2021-02-21 11:38] LABS: Urine Color Yellow (Yellow)
[2021-02-21 11:39] LABS: Add Urine Microscopic? YES; Bilirubin Urine Neg (Negative); Blood Urine Neg (Negative); Glucose Urine UA Norm (Normal); Ketones Urine Negative (Negative); Leukocyte Esterase Urine 2+ (Negative); Nitrate Urine Negative (Negative); Protein Urine Neg (Negative); Specific Gravity, Urine 1.015 (1.005-1.030); Urine Appearance Clear (CLEAR); Urobilinogen Urine Norm (Negative); pH Urine 5 (5-7)
[2021-02-21 11:58] LABS: Blood Urea Nitrogen 30 mg/dL (8-23); Carbon Dioxide 23 mmol/L (22-29); Chloride 100 mmol/L (98-107); Glucose 217 mg/dL (65-115); Osmolality Calculated 289 mOsm/kg (285-295); Sodium 133 mmol/L (136-145)
[2021-02-21 12:06] LABS: Anion Gap 15.4 (5-19); Potassium 5.4 mmol/L (3.5-5.1)
[2021-02-21 12:20] LABS: Add Urine Culture? No; Bacteria Urine 4+ /hpf; Fine Granular Casts Urine 0-4 /lpf; Mucus Urine 1+ /hpf; RBC Urine 0-4 /hpf (0-2); Transitional Epi Cells Urine 0-4 /hpf
[2021-02-26 08:08] VITALS: BP 144/75; PULSE 64; RESP 18; TEMP 36.7; O2SAT 98
[2021-02-26] MEDS: sodium chloride 0.9% 1,000 ML 30 ML IV (08:15)
[2021-02-26 08:33] LABS: Glucose Point of Care 177 mg/dL (70-110)
--- NOTE | 2021-02-26 08:54 | P.ANESUD_ITS ---
Pre-Anesthetic Update Pre-Anesthetic Assessment: Date of Surgery/Procedure: 02/26/21 Preop Yaima gnosis: Pacemaker generator end of service Proposed Procedure: Operation Date: 02/26/21 09:30 Proposed Procedures p Pacemaker Generator Exchange(Not Applicable) - Kobi Hernandez MD Any changes to Pre-Anesthetic Assessment?: No Last Intake: Intake Last Liquid Date 02/25/21 Last Liquid Time 23:00 Last Solid Date 02/25/21 Last Solid Time 23:00 Labs Last 48hrs: Laboratory Results - last 48 hr 02/26/21 08:30 POC Glucose 177 H Vitals: Temperature 98.1 F 02/26/21 08:08 Temperature Source Temporal Artery S can 02/26/21 08:08 Pulse Rate 64 02/26/21 08:08 Respiratory Rate 18 02/26/21 08:08 Blood Pressure 144/75 02/26/21 08:08 Blood Pressure Aline n 98 02/26/21 08:08 Pulse Oximetry 98 02/26/21 08:08 Oxygen Delivery Me thod 02/26/21 08:08 Exam: Pre-Anes Outpt Exam: alert, oriented x 3, clear to auscultation bilaterally and regular rate & rhythm Cardiac Studies: No Data to Display
--- NOTE | 2021-02-26 09:17 | P.HP_ITS ---
Providers/Chief Complaint Admitting Physician: Dr. Hernandez Primary Care Provider: Mariajose Brice APN History of Present Illness Jessica Calvert is a 75 year old female who presents today for planned generator change of a dual lead pacemaker system. She has had prior generator replacement previously. Current generator is now at end of service. She has advancing Alzheimer's disease with a increasing short-term memory loss. Her daughter currently lives with her and has done so for the past couple of years. She is followed carefully by Dr. Key from neurology service and from Dr. Lopez from our heart care services department. She has a dual lead system in place with the generator in the left subclavicular region. Review of Systems Const: Denies: fever(s), chills, change in appetite, change in weight, fatigue or night sweats Eyes: Denies: change in vision or blurry vision ENMT: Denies: odynophagia or hoarseness Card: Denies: chest pain, palpitations, irregular heart rhythm or edema Resp: Denies: dyspnea or productive cough GI: Denies: abdominal pain, nausea, vomiting, dysphagia, heartburn or change in bowel habits : Denies: dysuria, urinary frequency, urinary urgency or urinary hesitancy Musc: Denies: extremity pain or extremity swelling Skin/Breast: Denies: rash Neuro: Reports: other (Aggressive memory loss related to Alzheimer's); Denies: headache(s), numbness in extremities, weakness in extremities or sensory changes Psych: Denies: anxiety, depression or change in appetite Endo: Denies: polyuria, polydipsia or cold intolerance Manuel/Lymph: Denies: easy bruising, easy bleeding, petechiae or enlarged lymph nodes Medications/Allergies Home Medications Medication Instructions Recorded Confirmed Last Taken Type levothyroxine 50 mcg capsule 50 mcg PO DAILY 10/25/19 02/26/21 02/25/21 History magnesium oxide 400 mg PO DAILY 10/25/19 02/26/21 02/25/21 History multivitamin 1 tab PO DAILY 10/25/19 02/26/21 02/25/21 History omega-3 fatty acids 1,000 mg 1,000 mg PO DAILY 10/25/19 02/26/21 02/26/21 History capsule pravastatin 40 mg tablet 40 mg PO DAILY 02/07/0402/26/21 02/25/21 History apixaban 5 mg tablet 2.5 mg PO BID tab 09/21/20 02/26/21 02/23/21 History aspirin 81 mg tablet,delayed 81 mg PO DAILY #30 tab 09/21/20 02/26/21 02/25/21 Rx release losartan 50 mg tablet 50 mg PO DAILY #90 tab 09/21/20 02/26/21 02/25/21 Rx spironolactone 25 mg tablet 12.5 mg PO DAILY #60 tab 09/28/20 02/26/21 02/26/21 Rx metoprolol succinate 100 mg See Rx Instructions .ROUTE 02/13/21 02/26/21 02/26/21 Rx tablet,extended release 24 hr .COMPLEX #90 tab citalopram 20 mg tablet 20 mg PO DAILY #90 tab 02/20/21 02/26/21 02/25/21 Rx galantamine 12 mg tablet 12 mg PO BID #60 tab 02/20/21 02/21/21 Unknown Rx galantamine 4 mg tablet 4 mg PO BID #60 tab 02/20/21 02/21/21 Unknown Rx galantamine 8 mg tablet 8 mg PO BID #60 tab 02/20/21 02/21/21 Unknown Rx Allergies Allergy/AdvReac Type Severity Reaction Status Date / Time codeine Allergy Unknown Unknown Verified 02/20/21 09:37 PFSH Acute PFSH: Medical History Atrial fibrillation Depression Diabetes mellitus Diastolic heart failure Diverticulitis Fibromyalgia GI bleed Diverticulitis suggested on CT scan. History of CVA (cerebrovascular accident) Hyperlipidemia Hypertension Hypothyroidism -has hx of hypothyroidism -continue levothyroxine Lower gastrointestinal hemorrhage Neuropathy Sleep apnea unclear if cpap machine working Surgical History S/P appendectomy S/P cardiac pacemaker procedure S/P carpal tunnel release S/P cholecystectomy S/P gastric surgery S/P hernia repair S/P hysterectomy S/P knee replacement Family History Father Stroke Mother Diabetes Hypertension CAD (coronary artery disease) Social History Smoking and tobacco status: former smoker Quit status (tobacco): has quit using tobacco Year quit tobacco: 1986 Alcohol intake: never History of recent travel: No Vitals/I&O/Wt Last Vital Signs Temp 98.1 F 02/26/21 08:08 Pulse 64 02/26/21 08:08 Resp 18 02/26/21 08:08 BP 144/75 02/26/21 08:08 Pulse Ox 98 02/26/21 08:08 Physical Exam Const: COMMON NORMALS: patient oriented x3 and alert ORIENTATION/CONSCIOUSNESS: Yes oriented to person, Yes oriented to place and Yes oriented to time HENMT: COMMON NORMALS: normocephalic HEAD & SCALP: normocephalic Neck/C-Spine: COMMON NORMALS: full ROM, supple, no JVD and No carotid bruits GENERAL: Yes trachea midline CERVICAL SPINE: Yes cervical ROM normal Chest: COMMONS NORMALS: normal inspection of the chest and normal palpation of entire chest wall Resp: COMMON NORMALS: normal respiratory effort, No use of accessory muscles, clear to auscultation bilaterally and percussion normal EFFORT & INSPECTION: Yes able to speak in complete sentences and Yes symmetric chest movement AUSCULTATION: clear to auscultation bilaterally PERCUSSION: percussion normal Cardio: COMMON NORMALS: no JVD, regular rate, regular rhythm, S1 normal heart sound present, S2 normal heart sound present, No gallops present (Cardio), No murmurs present (Cardio), No rub (Cardio) and Peripheral pulses 2+ throughout JUGULAR VENOUS DISTENTION: no JVD RATE: regular rate RHYTHM: regular rhythm HEART SOUNDS: S1 normal heart sound present and S2 normal heart sound present PERIPHERAL PULSES: Peripheral pulses 2+ throughout Neuro: COMMON NORMALS: patient oriented x3, no focal motor deficits and no sensory deficits noted SENSORIUM/ORIENTATION: Yes alert and Yes oriented to person Data : 02/21/21 11:19 02/21/21 11:19 A&P Assessment and plan (1) Pacemaker at end of battery life: Plan for pacemaker generator exchange. Details of risk were carefully reviewed with Ms. Castellon and her daughter. Appropriate consents have been provided for review and signature. Status: Acute Attestations Medical Necessity Statement*: Pacemaker generator at end of service Time Spent in Patient Care: 16 - 35 minutes Coding Level of Care Code Acute Bag Making Machine Tender for g Fwd Diagnoses Pacemaker at end of battery life Z45.010
[2021-02-26] MEDS: lidocaine 1% INJ 50 mL INJECTION (09:44)
[2021-02-26] MEDS: vancomycin 1,000 MG SDV 1000 MG IRRIGATION (09:44)
[2021-02-26 10:19] VITALS: BP 125/65; PULSE 70; RESP 18; TEMP 36.3; O2SAT 97
[2021-02-26 10:20] VITALS: BP 125/65; PULSE 70; RESP 18; O2SAT 99
--- NOTE | 2021-02-26 10:21 | P.OP_ITS ---
Operative Report Date of procedure: February 26, 2021 Pre-op Diagnosis: Pacemaker generator end of service Post-op diagnosis: same Procedure Done: Pacemaker generator exchange Implants: Old generator given to [employer] motor vehicle field representative Pathology: none sent Surgeon: Kobi Hernandez Anesthesia: MAC and Local Condition: stable Disposition: same day Brief History: 75-year-old female with atrial fibrillation and refractory bradycardia the previously placed dual-lead pacemaker system. Generator has been replaced once and the current generator is now at end of service. Generator exchange was recommended. Details and risk of the procedure were carefully and frankly discussed with Ms. Calvert and family. Appropriate consents have been reviewed and signed. Procedure: Ms. Calvert was appropriately positioned and sterilely prepped and draped. IV consicious sedation was given with anesthesia monitoring. 1% lidocaine was infiltrated through the prior insertion incision site. # 15 scalpel blade was used to incise the skin down to subcutaneous layer. Subsequently, using sharp and blunt dissection the pseudocapsule to the old generator was reached and opened with a scalpel blade. This area was then enhanced utilizing Metzenbaum scissors with care taken not to injure the pacing leads. Once the pocket was adequate opened, hemostats were utilized to deliver the old generator. Set screws were released and the leads were removed and inserted properly into the new generator with set screws then secured. The old generator was removed from the field. The incision was irrigated with antibiotic solution. Hemostasis was confirmed. The new generator was placed back into the old subcutaneous pocket. The wound was then closed in 2 layers of 3-0 Vicryl suture. Skin was closed in a subcuticular manner with 4-0 undyed Vicryl suture. A 2 layer pressure dressing was then applied. The entire system was interrogated and appropriate parameters obtained. She tolerated procedure well and was taken to the recovery room in stable condition. I did counseling services director with her daughter at the completion of the procedure. Generator: [employer] MRI [id number] Serial #: [id number] Right atrial lead has a impedance of 380 ohms. Patient is in atrial fibrillation, therefore sensing cannot be calculated. Right ventricular lead has a sensing of 2.7 mV with an impedance of 380 ohms and a threshold of 0.625 V Generator is currently set at VVIR 70/130
[2021-02-26 10:25] VITALS: BP 121/69; PULSE 74; RESP 20; O2SAT 97
[2021-02-26 10:30] VITALS: BP 121/69; PULSE 69; RESP 17; TEMP 36.5; O2SAT 97
--- NOTE | 2021-02-26 10:40 | SUR.PHASEI ---
1030 PT AWAKE ALERT TALKATIVE PT KNOWS NAME ONLY [id number] TO ALL ELSE, PT PLEASANT AND DENIES PAIN AND NAUSEA WARM BLANKETS TO PT, LAB CALLED TO REDRAW BMP PER DR MARIA ORDER. REPORT TO MAGALY MANZO IN OPS.
[2021-02-26 10:47] VITALS: BP 134/70; PULSE 68; RESP 18; TEMP 36.5; O2SAT 97
[2021-02-26 11:30] LABS: Anion Gap 13.5 (5-19); Blood Urea Nitrogen 30 mg/dL (8-23); Calcium 8.5 mg/dL (8.5-10.5); Carbon Dioxide 25 mmol/L (22-29); Chloride 104 mmol/L (98-107); Glucose 172 mg/dL (65-115); Osmolality Calculated 294 mOsm/kg (285-295); Potassium 5.5 mmol/L (3.5-5.1); Sodium 137 mmol/L (136-145)
--- NOTE | 2021-02-26 13:36 | ANE.PACU2 ---
Inpatient post-anesthesia follow up: Airway intact: Yes Vital signs: Temperature 97.7 F Pulse Rate 68 Respiratory Rate 18 Blood Pressure 134/70 Pulse Oximetry 97 Oxygen Delivery Me thod Room Air Oxygen Flow Rate 0 Fraction of Inspir ed Oxygen Hydration adequate: Yes Nausea and vomiting: No Pain level: 1 Mental status: Baseline
== END 2021-02-26 11:50 | disposition home or self-care (01) ==
PROVIDERS: PCP Nurse Practitioner; Visit Provider Thoracic Surgery (Cardiothoracic Vascular Surgery)
PROC: 0JPT0PZ Removal of Cardiac Rhythm Related Device from Trunk Subcutaneous Tissue and Fascia, Open Approach (ICD-10-PCS; CPT 33228; principal; 2021-02-26 09:30)
DX: Z45.010 Encounter for checking and testing of cardiac pacemaker pulse generator [battery] (principal); I48.91 Unspecified atrial fibrillation; I11.0 Hypertensive heart disease with heart failure; I50.30 Unspecified diastolic (congestive) heart failure; I25.2 Old myocardial infarction; F32.9 Major depressive disorder, single episode, unspecified; M79.7 Fibromyalgia; E78.5 Hyperlipidemia, unspecified; E03.9 Hypothyroidism, unspecified; E11.40 Type 2 diabetes mellitus with diabetic neuropathy, unspecified; G47.30 Sleep apnea, unspecified; Z87.891 Personal history of nicotine dependence; G30.9 Alzheimer's disease, unspecified; Z79.82 Long term (current) use of aspirin
CPT/HCPCS: 33228; 36415; 36416; 80048; 81001; 82962; 85025; C1785; J0690; J2704; J3370; J7030

== ENCOUNTER → 2022-04-26 10:43 | Outpatient (BNVA) | payer MEDICARE, SELFPAY | PROVIDERS: PCP Nurse Practitioner; Visit Provider Internal Medicine Cardiovascular Disease | DX: I48.11 Longstanding persistent atrial fibrillation (principal); I11.0 Hypertensive heart disease with heart failure; I50.9 Heart failure, unspecified; Z95.0 Presence of cardiac pacemaker; Z87.891 Personal history of nicotine dependence | CPT/HCPCS: 93280; 99214 ==

== ENCOUNTER → 2023-01-10 10:16 | Outpatient (BNVA) | payer MEDICARE, SELFPAY | PROVIDERS: PCP Nurse Practitioner Family; Visit Provider Specialist | DX: I48.0 Paroxysmal atrial fibrillation (principal); Z95.0 Presence of cardiac pacemaker; I11.0 Hypertensive heart disease with heart failure; I50.30 Unspecified diastolic (congestive) heart failure; E78.5 Hyperlipidemia, unspecified; Z87.891 Personal history of nicotine dependence; Z79.01 Long term (current) use of anticoagulants; Z79.82 Long term (current) use of aspirin | CPT/HCPCS: 99214 ==

== ENCOUNTER → 2023-05-13 14:33 | Outpatient (BNVA) | payer MEDICARE, SELFPAY | PROVIDERS: PCP Nurse Practitioner Family; Visit Provider Nurse Practitioner Family | DX: I11.0 Hypertensive heart disease with heart failure (principal); I50.30 Unspecified diastolic (congestive) heart failure; I48.11 Longstanding persistent atrial fibrillation; Z95.0 Presence of cardiac pacemaker; Z79.01 Long term (current) use of anticoagulants; Z79.82 Long term (current) use of aspirin; Z87.891 Personal history of nicotine dependence | CPT/HCPCS: 99214 ==

== ENCOUNTER → 2023-11-25 10:22 | Outpatient (BNVA) | payer MEDICARE, SELFPAY | PROVIDERS: PCP Nurse Practitioner Family; Visit Provider Nurse Practitioner Family | DX: I48.11 Longstanding persistent atrial fibrillation (principal); I11.0 Hypertensive heart disease with heart failure; I50.32 Chronic diastolic (congestive) heart failure; Z95.0 Presence of cardiac pacemaker; Z87.891 Personal history of nicotine dependence; Z79.01 Long term (current) use of anticoagulants | CPT/HCPCS: 99214 ==

== ENCOUNTER → 2024-05-26 09:22 | Outpatient (BNVA) | payer MEDICARE, SELFPAY | PROVIDERS: PCP Nurse Practitioner Family; Visit Provider Internal Medicine Cardiovascular Disease | DX: I48.11 Longstanding persistent atrial fibrillation (principal); Z95.0 Presence of cardiac pacemaker; I11.0 Hypertensive heart disease with heart failure; I50.32 Chronic diastolic (congestive) heart failure; Z72.0 Tobacco use; Z79.01 Long term (current) use of anticoagulants | CPT/HCPCS: 99214 ==

== ENCOUNTER → 2025-01-04 09:42 | Outpatient (BNVA) | payer MEDICARE, SELFPAY | PROVIDERS: PCP Nurse Practitioner Family; Visit Provider Internal Medicine Cardiovascular Disease | DX: I48.11 Longstanding persistent atrial fibrillation (principal); Z79.01 Long term (current) use of anticoagulants; I11.0 Hypertensive heart disease with heart failure; I50.32 Chronic diastolic (congestive) heart failure; Z95.0 Presence of cardiac pacemaker; Z87.891 Personal history of nicotine dependence | CPT/HCPCS: 99214 ==

== ENCOUNTER → 2025-04-27 11:44 | Outpatient (BNVA) | payer MEDICARE, SELFPAY | PROVIDERS: PCP Nurse Practitioner Family; Visit Provider Internal Medicine | DX: Z45.018 Encounter for adjustment and management of other part of cardiac pacemaker (principal) | CPT/HCPCS: 93296 ==

== ENCOUNTER → 2025-09-14 12:28 | Outpatient (BNVA) | payer MEDICARE, SELFPAY | PROVIDERS: PCP Nurse Practitioner Family; Visit Provider Internal Medicine Cardiovascular Disease | DX: Z45.018 Encounter for adjustment and management of other part of cardiac pacemaker (principal) | CPT/HCPCS: 93296 ==